=== PATIENT | male | born 1955 | race Caucasian/White ===

== ENCOUNTER 2018-07-02 13:28 | Inpatient (IN) ==
[2018-07-02 14:22] LABS: Basophils # (auto) 0.02 K/uL (0-0.2); Basophils % (auto) 0.2 %; Eosinophils # (auto) 0.25 K/uL (0-0.5); Eosinophils % (auto) 2.6 %; Hematocrit (blood only) 44.4 % (42-52); Hemoglobin 14.6 g/dL (14.0-18.0); Immature Granulocytes # (auto) 0.02 K/uL (0.00-0.02); Immature Granulocytes % (auto) 0.2 %; Lymphocytes % (auto) 15.8 %; Mean Corpuscular Hgb Conc 32.9 g/dL (32-36); Mean Corpuscular Volume 89.7 fL (80-100); Mean Platelet Volume 10.8 fL (7.4-10.4); Monocytes # (auto) 1.09 K/uL (0.11-0.59); Monocytes % (auto) 11.5 %; Neutrophils # (auto) 6.63 K/uL (1.4-6.5); Neutrophils % (auto) 69.7 %; Platelet Count 295 K/uL (130-400); RDW Coefficient of Variation 14.1 % (11.5-14.5); RDW Standard Deviation 46.1 fL (36.4-46.3); Red Blood Count 4.95 M/uL (4.7-6.1); White Blood Count 9.51 K/uL (4.8-10.8)
[2018-07-02 14:33] LABS: Alanine Aminotransferase 36 U/L (12-78); Albumin Level 3.7 gm/dl (3.4-5.0); Aspartate Aminotransferase 26 U/L (15-37); BUN Creatinine Ratio 15.8 (10-20); Blood Urea Nitrogen 17 mg/dl (7-18); Calcium 8.7 mg/dl (8.5-10.1); Carbon Dioxide 28 mmol/L (21-32); Chloride 102 mmol/L (98-107); Creatinine Clr Calc Pharmacy 93.2 ml/min; Est GFR (African American) 84.5; Est GFR (Non-African American) 72.9; Glucose 89 mg/dl (70-99); Magnesium 2.4 mg/dl (1.8-2.4); Sodium 134 mmol/L (136-145)
[2018-07-02 14:44] LABS: Albumin Globulin Ratio 0.8 (0.9-2); Alkaline Phosphatase 90 U/L (45-117); Bilirubin,Total 0.5 mg/dl (0.2-1); Globulin 4.6 gm/dl (2.5-4.0); Phosphorus 3.6 mg/dl (2.5-4.9); Total Protein 8.3 gm/dl (6.4-8.2); Troponin I < 0.015 ng/ml (0-0.045)
--- NOTE | 2018-07-02 14:55 | XRay Report ---
XR chest 1V portable CLINICAL HISTORY: Chest Pain dyspnea COMPARISON STUDY: No previous studies for comparison. FINDINGS: Mild cardiomegaly., Pulmonary vasculature. Diaphragms are smooth. IMPRESSION: Congestive heart failure. The above report was generated using voice recognition software. It may contain grammatical, syntax or spelling errors. Electronically signed by: Wicho Gonzales M.D. 07/02/2018 2:54 PM
[2018-07-02] MEDS ORDERED: dilTIAZem HCl 5 MG/ML 5 ML VIAL IV STA ×2 (15:00→19:56)
[2018-07-02 15:25] LABS: INR 1.1 (0.9-1.1); Partial Thromboplastin Time 26.5 Seconds (21.0-31.0); Prothrombin Time 11.2 Seconds (9.0-12.0)
[2018-07-02] MEDS ORDERED: FUROSEMIDE 20 MG in SYRINGE 0 ML IV STA (16:17)
[2018-07-02] MEDS ORDERED: FUROSEMIDE 40 MG in SYRINGE 0 ML IV ONE (16:51)
--- NOTE | 2018-07-02 17:02 | Emergency Department Note ---
Entered by Ricardo Solis acting as a scribe for Myles Keenan MD History of Present Illness General Chief complaint: Cardiac Assessment Stated complaint: CARDIAC ASSESSMENT,SOB,SENT OVER BY [facility] Time Seen by Provider: 07/02/18 14:10 Source: patient History of Present Illness Onset (ago): week(s) (past couple) Location: chest (lungs) Pain Consistency: + other (persistent) Quality: + other (shortness of breath) Associated symptoms: + other (possible arrhythmia; denies palpitations, leg swelling, or congestion); no chest pain The patient is a 63 year old male who presents to the Emergency Room with complaints of persistent shortness of breath for the past month. The patient reports that he currently feels short of breath at rest and notes a cough. He was evaluated by his [facility] PCP prior to arrival and was sent to the ER with concerns of possible arrhythmia. The patient denies a history of any known arrhythmia or other heart problems. He had a stress test in 2008 that was unremarkable. He reports a history of second-hand smoke exposure but has not personally smoked cigarettes. The patient denies leg swelling, congestion, palp itations, or chest pain. He notes that he has gained a few pounds in the past month. He states that he has not missed any of his medications, including medication for hypertension. He reports a history of brain aneurysm. He reports recent rib fractures this past winter. He notes that he is active at his job working for [employer]. Home Medications Home Medications Medication Instructions Recorded Confirmed Type amlodipine 5 mg PO DAILY 07/02/18 07/02/18 History atenolol 100 mg PO DAILY 07/02/18 07/02/18 History baclofen 10 mg PO BID PRN 07/02/18 07/02/18 History hydrochlorothiazide 25 mg PO DAILY 07/02/18 07/02/18 History lisinopril 40 mg PO DAILY 07/02/18 07/02/18 History oxycodone-acetaminophen 1 tab PO HS PRN 07/02/18 07/02/18 History Allergies Allergy/AdvReac Type Severity Reaction Status Date / Time Penicillins Allergy RASH Unverified 07/02/18 14:44 Past Med/Surg History Medical History Barretts esophagus (Chronic) Obesity (Chronic) Hypertension (Chronic) Surgical History Hx of tonsillectomy (Chronic) Family History Mother Heart disease First [place] in her early 60s, fatal [place] at age 78 Father Stroke fatal CVA at age 69 Social History Preferred Language: Polish Communication Ability: Effective Beliefs That Will Affect Care: None Current Living Situation: Significant Other current occupational status: employed Other Information That Helps Us Care for You: No Feels Safe at Home: Yes Safety Concerns: Feels Safe At This Time Smoking Status: Never smoker Hx Alcohol Use: Yes Alcohol type: beer Hx Substance Use: No Review of Systems See HPI for pertinent positives & negatives. and A total of 10 systems reviewed and were otherwise negative Physical Exam Vital Signs Vital Signs - 24 hr 07/02/18 13:31 07/02/18 13:42 07/02/18 14:01 Temperature 36.8 C Temperature Source Oral Sepsis Recent Fever Within 48 Hours No Sepsis Action Taken by Nursing No Action Required Pulse Rate 108 H 145 H 145 H Pulse Rate [Left Brachial] Pulse Rate from SpO2 Sensor 122 H 92 H Respiratory Rate 20 26 H 16 Respiratory Effort / Characteristics Non-Labored Respiratory Depth Normal Blood Pressure 175/121 H 152/135 H 140/110 H Blood Pressure [Left Arm] Blood Pressure Mean 139 140 120 Blood Pressure Mean [Left Arm] Blood Pressure Position [Left Arm] Pulse Oximetry 98 96 95 Oxygen Delivery Method Room Air Room Air 07/02/18 14:32 07/02/18 15:01 07/02/18 15:06 Temperature Temperature Source Sepsis Recent Fever Within 48 Hours Sepsis Action Taken by Nursing Pulse Rate 134 H 126 H 141 H Pulse Rate [Left Brachial] Pulse Rate from SpO2 Sensor 85 122 H 105 H Respiratory Rate 21 22 19 Respiratory Effort / Characteristics Respiratory Depth Blood Pressure 153/113 H 136/111 H 151/104 H Blood Pressure [Left Arm] Blood Pressure Mean 126 119 119 Blood Pressure Mean [Left Arm] Blood Pressure Position [Left Arm] Pulse Oximetry 96 96 96 Oxygen Delivery Method 07/02/18 15:07 07/02/18 15:10 05/02/19 15:20 Temperature Temperature Source Sepsis Recent Fever Within 48 Hours Sepsis Action Taken by Nursing Pulse Rate 140 H 113 H 107 H Pulse Rate [Left Brachial] Pulse Rate from SpO2 Sensor 104 H 110 H 101 H Respiratory Rate 20 18 23 Respiratory Effort / Characteristics Respiratory Depth Blood Pressure Blood Pressure [Left Arm] Blood Pressure Mean Blood Pressure Mean [Left Arm] Blood Pressure Position [Left Arm] Pulse Oximetry 96 93 95 Oxygen Delivery Method 07/02/18 15:30 07/02/18 15:32 07/02/18 15:40 Temperature Temperature Source Sepsis Recent Fever Within 48 Hours Sepsis Action Taken by Nursing Pulse Rate 110 H 115 H 101 H Pulse Rate [Left Brachial] Pulse Rate from SpO2 Sensor 92 H 93 H 90 Respiratory Rate 22 26 H 19 Respiratory Effort / Characteristics Respiratory Depth Blood Pressure 119/70 Blood Pressure [Left Arm] Blood Pressure Mean 86 Blood Pressure Mean [Left Arm] Blood Pressure Position [Left Arm] Pulse Oximetry 93 93 95 Oxygen Delivery Method 07/02/18 15:50 07/02/18 16:00 07/02/18 16:10 Temperature Temperature Source Sepsis Recent Fever Within 48 Hours Sepsis Action Taken by Nursing Pulse Rate 119 H 112 H 105 H Pulse Rate [Left Brachial] Pulse Rate from SpO2 Sensor 84 92 H 80 Respiratory Rate 18 18 23 Respiratory Effort / Characteristics Respiratory Depth Blood Pressure Blood Pressure [Left Arm] Blood Pressure Mean Blood Pressure Mean [Left Arm] Blood Pressure Position [Left Arm] Pulse Oximetry 94 92 Oxygen Delivery Method Room Air 07/02/18 16:20 07/02/18 16:30 07/02/18 16:32 Temperature Temperature Source Sepsis Recent Fever Within 48 Hours Sepsis Action Taken by Nursing Pulse Rate 106 H 106 H 100 H Pulse Rate [Left Brachial] Pulse Rate from SpO2 Sensor 105 H 87 102 H Respiratory Rate 24 20 25 H Respiratory Effort / Characteristics Respiratory Depth Blood Pressure 138/88 Blood Pressure [Left Arm] Blood Pressure Mean 104 Blood Pressure Mean [Left Arm] Blood Pressure Position [Left Arm] Pulse Oximetry 95 94 94 Oxygen Delivery Method 07/02/18 16:40 07/02/18 16:50 07/02/18 17:00 Temperature Temperature Source Sepsis Recent Fever Within 48 Hours Sepsis Action Taken by Nursing Pulse Rate 105 H Pulse Rate [Left Brachial] Pulse Rate from SpO2 Sensor 98 H 93 H 95 H Respiratory Rate 19 Respiratory Effort / Characteristics Respiratory Depth Blood Pressure Blood Pressure [Left Arm] Blood Pressure Mean Blood Pressure Mean [Left Arm] Blood Pressure Position [Left Arm] Pulse Oximetry 95 96 96 Oxygen Delivery Method 07/02/18 17:10 07/02/18 17:17 07/02/18 17:20 Temperature Temperature Source Sepsis Recent Fever Within 48 Hours Sepsis Action Taken by Nursing Pulse Rate 113 H 126 H Pulse Rate [Left Brachial] Pulse Rate from SpO2 Sensor 91 H 84 89 Respiratory Rate 20 19 Respiratory Effort / Characteristics Respiratory Depth Blood Pressure 143/87 H Blood Pressure [Left Arm] Blood Pressure Mean 105 Blood Pressure Mean [Left Arm] Blood Pressure Position [Left Arm] Pulse Oximetry 95 96 94 Oxygen Delivery Method 07/02/18 17:31 07/02/18 17:33 07/02/18 17:34 Temperature Temperature Source Sepsis Recent Fever Within 48 Hours Sepsis Action Taken by Nursing Pulse Rate 120 H 119 H 99 H Pulse Rate [Left Brachial] Pulse Rate from SpO2 Sensor 81 95 H Respiratory Rate 13 19 21 Respiratory Effort / Characteristics Respiratory Depth Blood Pressure 152/95 H Blood Pressure [Left Arm] Blood Pressure Mean 114 Blood Pressure Mean [Left Arm] Blood Pressure Position [Left Arm] Pulse Oximetry 97 97 Oxygen Delivery Method 07/02/18 17:40 07/02/18 17:50 07/02/18 18:00 Temperature Temperature Source Sepsis Recent Fever Within 48 Hours Sepsis Action Taken by Nursing Pulse Rate 133 H 111 H 131 H Pulse Rate [Left Brachial] Pulse Rate from SpO2 Sensor 77 97 H Respiratory Rate 21 18 19 Respiratory Effort / Characteristics Respiratory Depth Blood Pressure Blood Pressure [Left Arm] Blood Pressure Mean Blood Pressure Mean [Left Arm] Blood Pressure Position [Left Arm] Pulse Oximetry 94 96 Oxygen Delivery Method 07/02/18 18:02 07/02/18 18:10 07/02/18 18:24 Temperature Temperature Source Sepsis Recent Fever Within 48 Hours Sepsis Action Taken by Nursing Pulse Rate 133 H 117 H 125 H Pulse Rate [Left Brachial] Pulse Rate from SpO2 Sensor 89 108 H Respiratory Rate 21 20 23 Respiratory Effort / Characteristics Respiratory Depth Blood Pressure 178/87 H Blood Pressure [Left Arm] Blood Pressure Mean 117 Blood Pressure Mean [Left Arm] Blood Pressure Position [Left Arm] Pulse Oximetry 95 98 93 Oxygen Delivery Method 07/02/18 18:49 07/02/18 19:05 07/02/18 20:13 Temperature 36.8 C Temperature Source Oral Sepsis Recent Fever Within 48 Hours Sepsis Action Taken by Nursing Pulse Rate Pulse Rate [Left Brachial] 63 117 H Pulse Rate from SpO2 Sensor Respiratory Rate 19 Respiratory Effort / Characteristics Non-Labored Spontaneous Non-Labored Spontaneous Respiratory Depth Normal Blood Pressure Blood Pressure [Left Arm] 163/103 H 131/87 Blood Pressure Mean Blood Pressure Mean [Left Arm] 123 101 Blood Pressure Position [Left Arm] Pulse Oximetry 92 Oxygen Delivery Method Room Air 07/02/18 23:20 07/03/18 01:03 Temperature 37.4 C Temperature Source Oral Sepsis Recent Fever Within 48 Hours Sepsis Action Taken by Nursing Pulse Rate Pulse Rate [Left Brachial] 86 84 Pulse Rate from SpO2 Sensor Respiratory Rate 19 Respiratory Effort / Characteristics Respiratory Depth Normal Blood Pressure Blood Pressure [Left Arm] 110/71 112/80 Blood Pressure Mean Blood Pressure Mean [Left Arm] 84 90 Blood Pressure Position [Left Arm] Lying Pulse Oximetry 96 Oxygen Delivery Method Room Air GENERAL: Awake, alert, fatigued-appearing, in no distress HENT: Normocephalic, atraumatic. Oropharynx unremarkable. EYES: Normal conjunctiva. Sclera non-icteric. NECK: Supple. No nuchal rigidity. FROM. No JVD. RESPIRATORY: Diminished breath sounds at the bases, otherwise clear. CARDIAC: Tachycardic rate, irregular rhythm. Extremities warm and well perfused. Pulses equal. ABDOMEN: Soft, non-distended. No tenderness to palpation. No rebound or guarding. No masses. RECTAL: Deferred. MUSCULOSKELETAL: Chest examination reveals no tenderness. The back is symmetrical on inspection without obvious abnormality. There is no CVA tenderness to palpation. No joint edema. LOWER EXTREMITIES: Calves are equal size bilaterally and non-tender. Scant edema. No discoloration. NEURO: Normal sensorium. No sensory or motor deficits noted. SKIN: No rash or jaundice noted. Course 1414: The patient was evaluated in room A11B. A complete history and physical examination were performed. 1458: I checked on the patient and updated him on current results. 1605: I updated the patient on results and the current plan. On reevaluation his heart rate appears improved, mostly in the low 100s. 1616: I consulted MARISSA Hassan: [facility] Hospitalist. The patient will be reevaluated for hospitalization. Administered Medications Heparin Sodium/Dextrose (Heparin Sodium/Dextrose) 25,000 units in 500 mls @ 37 mls/hr IV .[id number] [facility]; Protocol Stop: 08/01/18 19:44 Last Titration: 07/02/18 23:46 Dose: 1,850 units/hr, 37 mls/hr Documented by: [id number] Cosigned by: [id number] Admin: 07/02/18 19:40 Dose: Not Given Documented by: [id number] Admin: 07/02/18 17:30 Dose: 1,650 units/hr, 33 mls/hr Documented by: [id number] Cosigned by: [id number] Diltiazem HCl 125 mg/ Dextrose 125 mls @ 5 mls/hr IV .Q24H [facility]; Protocol Stop: 08/01/18 19:59 Last Admin: 07/02/18 21:11 Dose: 5 mg/hr, 5 mls/hr Documented by: [id number] Cosigned by: [id number] Metoprolol Tartrate (Lopressor) 25 mg PO Q6 [facility] Stop: 08/01/18 19:33 Last Admin: 07/03/18 01:04 Dose: 25 mg Documented by: [id number] Admin: 07/02/18 20:04 Dose: 25 mg Documented by: [id number] Discontinued Medications Diltiazem HCl (Cardizem) 15 mg IV NOW STA Stop: 07/02/18 15:01 Last Admin: 07/02/18 15:05 Dose: 15 mg Documented by: [id number] Cosigned by: [id number] Diltiazem HCl (Cardizem) 10 mg IV NOW STA Stop: 07/02/18 19:57 Last Admin: 07/02/18 20:09 Dose: 10 mg Documented by: [id number] Cosigned by: [id number] Furosemide (Lasix) Confirm Administered Dose 40 mg IV .STK-MED ONE Stop: 07/02/18 17:09 Last Admin: 07/02/18 17:13 Dose: 40 mg Documented by: [id number] Heparin Sodium (Porcine) (Heparin Iv Bolus) Confirm Administered Dose 10,000 units .ROUTE .STK-MED ONE Stop: 07/02/18 17:28 Last Admin: 07/02/18 17:31 Dose: Not Given Documented by: [id number] Heparin Sodium/Dextrose () 1 ea IV NOW STA; Protocol Stop: 07/02/18 16:52 Last Admin: 07/02/18 17:14 Dose: Not Given Documented by: [id number] Heparin Sodium/Dextrose (Heparin Sodium/Dextrose) Confirm Administered Dose 25,000 units IV .STK-MED ONE Stop: 07/02/18 17:08 Last Admin: 07/02/18 17:30 Dose: 1,650 units Documented by: [id number] Cosigned by: [id number] Furosemide 20 mg/ Syringe 2 mls @ 4 mls/min IV NOW STA Stop: 07/02/18 16:18 Last Admin: 07/02/18 17:14 Dose: Not Given Documented by: [id number] Furosemide 40 mg/ Syringe 4 mls @ 4 mls/min IV ONE ONE Stop: 07/02/18 16:52 Last Admin: 07/02/18 17:13 Dose: Not Given Documented by: [id number] Heparin Sodium (Porcine) 4,000 (units/ Syringe) 4 mls @ 1 mls/min IV TODAY@0000 ONE; Protocol Stop: 07/03/18 00:03 Last Admin: 07/03/18 00:05 Dose: 1 mls/min Documented by: [id number] Cosigned by: [id number] Medical Decision Making Differential Diagnosis Differential diagnosis includes: infections, reactive airway disease, pneumonia, pneumothorax, COPD, CHF, cardiac ischemia, pulmonary embolism, musculoskeletal, gastrointestinal, as well as others were entertained. Medical Records Attestation: I reviewed the patient's medical records. Home Medications Current Medication List: was personally reviewed by me Laboratory Data Attestation: I reviewed the patient's lab results. Result diagrams: 07/03/18 01:54 07/02/18 13:55 Lab Results 07/02/18 07/02/18 07/02/18 Range/Units 13:55 13:55 13:55 WBC 9.51 (4.8-10.8) K/uL RBC 4.95 (4.7-6.1) M/uL Hgb 14.6 (14.0-18.0) g/dL Hct 44.4 (42-52) % MCV 89.7 (80-100) fL MCH 29.5 (25-34) pg MCHC 32.9 (32-36) g/dL RDW Std Deviation 46.1 (36.4-46.3) fL RDW Coeff of Abran 14.1 (11.5-14.5) % Plt Count 295 (130-400) K/uL MPV 10.8 H (7.4-10.4) fL Immature Gran % (Auto) 0.2 % Neut % (Auto) 69.7 % Lymph % (Auto) 15.8 % [place] % (Auto) 11.5 % Eos % (Auto) 2.6 % Baso % (Auto) 0.2 % Immature Gran # (Auto) 0.02 (0.00-0.02) K/uL Neut # (Auto) 6.63 H (1.4-6.5) K/uL Lymph # (Auto) 1.50 (1.2-3.4) K/uL [place] # (Auto) 1.09 H (0.11-0.59) K/uL Eos # (Auto) 0.25 (0-0.5) K/uL Baso # (Auto) 0.02 (0-0.2) K/uL PT (9.0-12.0) Seconds INR (0.9-1.1) APTT (21.0-31.0) Seconds PTT Ratio Sodium 134 L (136-145) mmol/L Potassium 4.0 (3.5-5.1) mmol/L Chloride 102 (98-107) mmol/L Carbon Dioxide 28 (21-32) mmol/L Anion Gap 4.0 (3-11) BUN 17 (7-18) mg/dl Creatinine 1.09 (0.6-1.4) mg/dl Est Cr Clr Drug Dosing 93.2 ml/min Est GFR ( Amer) 84.5 Est GFR (Non-Af Amer) 72.9 BUN/Creatinine Ratio 15.8 (10-20) Glucose 89 (70-99) mg/dl Calcium 8.7 (8.5-10.1) mg/dl Phosphorus 3.6 (2.5-4.9) mg/dl Magnesium 2.4 (1.8-2.4) mg/dl Total Bilirubin 0.5 (0.2-1) mg/dl AST 26 (15-37) U/L ALT 36 (12-78) U/L Alkaline Phosphatase 90 (45-117) U/L Troponin I < 0.015 (0-0.045) ng/ml NT-Pro-B Natriuret Pep (0-900) pg/ml Total Protein 8.3 H (6.4-8.2) gm/dl Albumin 3.7 (3.4-5.0) gm/dl Globulin 4.6 H (2.5-4.0) gm/dl Albumin/Globulin Ratio 0.8 L (0.9-2) Lipase 323 (73-393) U/L TSH 0.846 Cancelled (0.300-4.500) uIu/ml 07/02/18 07/02/18 07/02/18 Range/Units 13:55 13:55 19:56 WBC (4.8-10.8) K/uL RBC (4.7-6.1) M/uL Hgb (14.0-18.0) g/dL Hct (42-52) % MCV (80-100) fL MCH (25-34) pg MCHC (32-36) g/dL RDW Std Deviation (36.4-46.3) fL RDW Coeff of Abran (11.5-14.5) % Plt Count (130-400) K/uL MPV (7.4-10.4) fL Immature Gran % (Auto) % Neut % (Auto) % Lymph % (Auto) % [place] % (Auto) % Eos % (Auto) % Baso % (Auto) % Immature Gran # (Auto) (0.00-0.02) K/uL Neut # (Auto) (1.4-6.5) K/uL Lymph # (Auto) (1.2-3.4) K/uL [place] # (Auto) (0.11-0.59) K/uL Eos # (Auto) (0-0.5) K/uL Baso # (Auto) (0-0.2) K/uL PT 11.2 (9.0-12.0) Seconds INR 1.1 (0.9-1.1) APTT 26.5 (21.0-31.0) Seconds PTT Ratio 1.0 Sodium (136-145) mmol/L Potassium (3.5-5.1) mmol/L Chloride (98-107) mmol/L Carbon Dioxide (21-32) mmol/L Anion Gap (3-11) BUN (7-18) mg/dl Creatinine (0.6-1.4) mg/dl Est Cr Clr Drug Dosing ml/min Est GFR ( Amer) Est GFR (Non-Af Amer) BUN/Creatinine Ratio (10-20) Glucose (70-99) mg/dl Calcium (8.5-10.1) mg/dl Phosphorus (2.5-4.9) mg/dl Magnesium (1.8-2.4) mg/dl Total Bilirubin (0.2-1) mg/dl AST (15-37) U/L ALT (12-78) U/L Alkaline Phosphatase (45-117) U/L Troponin I 0.017 (0-0.045) ng/ml NT-Pro-B Natriuret Pep 1819 H (0-900) pg/ml Total Protein (6.4-8.2) gm/dl Albumin (3.4-5.0) gm/dl Globulin (2.5-4.0) gm/dl Albumin/Globulin Ratio (0.9-2) Lipase (73-393) U/L TSH (0.300-4.500) uIu/ml 07/02/18 07/03/18 Range/Units 23:04 01:54 WBC 9.14 (4.8-10.8) K/uL RBC 4.99 (4.7-6.1) M/uL Hgb 14.8 (14.0-18.0) g/dL Hct 44.5 (42-52) % MCV 89.2 (80-100) fL MCH 29.7 (25-34) pg MCHC 33.3 (32-36) g/dL RDW Std Deviation 46.0 (36.4-46.3) fL RDW Coeff of Abran 14.1 (11.5-14.5) % Plt Count 292 (130-400) K/uL MPV 10.8 H (7.4-10.4) fL Immature Gran % (Auto) % Neut % (Auto) % Lymph % (Auto) % [place] % (Auto) % Eos % (Auto) % Baso % (Auto) % Immature Gran # (Auto) (0.00-0.02) K/uL Neut # (Auto) (1.4-6.5) K/uL Lymph # (Auto) (1.2-3.4) K/uL [place] # (Auto) (0.11-0.59) K/uL Eos # (Auto) (0-0.5) K/uL Baso # (Auto) (0-0.2) K/uL PT (9.0-12.0) Seconds INR (0.9-1.1) APTT 41.5 H (21.0-31.0) Seconds PTT Ratio 1.5 Sodium (136-145) mmol/L Potassium (3.5-5.1) mmol/L Chloride (98-107) mmol/L Carbon Dioxide (21-32) mmol/L Anion Gap (3-11) BUN (7-18) mg/dl Creatinine (0.6-1.4) mg/dl Est Cr Clr Drug Dosing ml/min Est GFR ( Amer) Est GFR (Non-Af Amer) BUN/Creatinine Ratio (10-20) Glucose (70-99) mg/dl Calcium (8.5-10.1) mg/dl Phosphorus (2.5-4.9) mg/dl Magnesium (1.8-2.4) mg/dl Total Bilirubin (0.2-1) mg/dl AST (15-37) U/L ALT (12-78) U/L Alkaline Phosphatase (45-117) U/L Troponin I (0-0.045) ng/ml NT-Pro-B Natriuret Pep (0-900) pg/ml Total Protein (6.4-8.2) gm/dl Albumin (3.4-5.0) gm/dl Globulin (2.5-4.0) gm/dl Albumin/Globulin Ratio (0.9-2) Lipase (73-393) U/L TSH (0.300-4.500) uIu/ml Imaging Data Radiologist's Impression: Radiology results as stated below per my review and the radiologist's interpretation: XR chest 1V portable CLINICAL HISTORY: Chest Pain dyspnea COMPARISON STUDY: No previous studies for comparison. FINDINGS: Mild cardiomegaly., Pulmonary vasculature. Diaphragms are smooth. IMPRESSION: Congestive heart failure. The above report was generated using voice recognition software. It may contain grammatical, syntax or spelling errors. Electronically signed by: Wicho Gonzales M.D. 07/02/2018 2:54 PM ECG Data Attestation: I personally reviewed and interpreted this ECG as follows: Indication: SOB/dyspnea Rate (beats per minute): 126 Rhythm: atrial fibrillation (with RVR) Findings: + other (normal axis; nonspecific T-wave abnormalities; no overt acute ishcemia) and + nonspecific-ST abn Blood Pressure Blood Pressure Findings: Normal blood pressure Blood Pressure Disposition: did not require urgent referral MDM Narrative The patient is a pleasant 63-year-old gentleman with a past medical history of hypertension who presents emergency department with 1 month of worsening shortness of breath and orthopnea referred to emergency department after being seen at his PCPs office found to have atrial fibrillation per hpi. On arrival the patient is in no acute distress, afebrile with heart rate ranging from the 120s-150s irregular in atrial fibrillation with BP 170s/120s. On exam the patient has diminished breath sounds at the bases and is otherwise clear. He has scant lower extremity edema. EKG demonstrates A. fib with RVR with nonspecific ST and T wave abnormalities but otherwise no overt evidence of acute ischemia. Chest x-ray demonstrates venous congestion. WBC, H/H, platelets wnl. Chemistry without acidosis. LFTs and electrolytes unremarkable. Troponin negative. BNP 1800s without prior values for comparison. Limited bedside ultrasound demonstrates no overt pericardial effusion. Minimally variable IVC. LV appears enlarged. Difficult to assess LV systolic function given poor views 2/2 body habitus and afib. Mild bilateral pleural effusions. Patient feeling improved after 15 mg of IV diltiazem with heart rate improved into the 100s. Given the patient's evidence of overload will provide dose of Lasix. Case discussed with Zhanna Hassan PA-C, who will evaluate the patient for admission. Admitting team to make decision on further rate control and anticoagulation given stroke risk. Impression & Plan Atrial fibrillation with RVR, CHF (congestive heart failure) Critical Care Time I have personally spent greater than 35 minutes of critical care time in the direct management of this patient. This includes bedside care, interpretation of diagnostic studies, and testing, discussion with consultants, patient, and family members, and other required patient management activities. This 35 minutes is in excess of all separately billable procedures. Critical Care Time: Yes Total Critical Care Time: 35 Discharge Plan Visit Data *Final* Discharge Date/Time: 07/02/18 18:29 Chief Complaint: Cardiac Assessment Stated Complaint: CARDIAC ASSESSMENT,SOB,SENT OVER BY [facility] ED Provider: Myles Keenan Discharge Problem: Atrial fibrillation with RVR, CHF (congestive heart failure) Patient Disposition: Admitted As Inpatient Discharge Instructions Interventions: ED Discharge Assessment Last Done: 07/02/18 18:29 The scribe's documentation has been prepared under my direction and personally reviewed by me in its entirety. I confirm that the note above accurately reflects all work, treatment, procedures, and medical decision making performed by me.
[2018-07-02] MEDS ORDERED: HEPARIN 25000 UNIT/500 ML D5W IV ONE (17:07)
[2018-07-02] MEDS ORDERED: FUROSEMIDE 40 MG/4 ML VIAL IV ONE (17:08)
[2018-07-02] MEDS ORDERED: HEPARIN SOD (PORCINE) 1000 UNIT/ML 10 ML VIAL ONE (17:27)
[2018-07-02] MEDS: Heparin Adult STANDARD Wt-Based Dextrose 5% 25,000 units/500 mL IV SCH ×2 (17:30→19:40)
[2018-07-02] MEDS ORDERED: ACETAMINOPHEN 325 MG TAB PO PRN (19:34)
[2018-07-02] MEDS ORDERED: OXYCODONE/ACETAMINOPHEN 5mg/325mg TAB PO PRN (19:34)
--- NOTE | 2018-07-02 19:45 | History & Physical Report ---
Date of Service July 02, 2018 Assessment & Plan (1) New onset atrial fibrillation: (2) CHF (congestive heart failure): -Admit to telemetry -Patient presenting from referral of PCPs office for evaluation of shortness of breath and new onset A. fib with RVR -In the ED, patient was found to be in A. fib with RVR with heart rates in the 140s to 150s -Received diltiazem 15 mg IV x1 with improvement in heart rate -will stop patient's home atenolol and start metoprolol tartrate 25 mg p.o. every 6 hours -Start IV heparin; [id number] score: 1 (hypertension), possibly 2 depending on echo findings -CXR suggest CHF and also elevated proBNP; no prior history of CHF; EF 60% from stress echo 2006 -Received 40 mg IV Lasix in the ED, reevaluate patient in a.m. and provide further diuresis if needed -Resting echo; consider tachycardia induced cardiomyopathy from A. fib -Low Na+ diet, daily standing weights, strict I's and O's -Serial cardiac enzymes -Cardiology consult, case discussed with Dr. Harris (3) Hypertension: -BP elevated on arrival, however improved after IV diltiazem -Changing atenolol to metoprolol as above -Hold HCTZ while receiving IV Lasix -Resume home doses of amlodipine and lisinopril in the morning (4) DVT prophylaxis: -On IV heparin drip History of Present Illness Chief Complaint: Shortness of breath Primary Care Provider: Shahzad Huang DO 63-year-old male who presents to the ED with shortness of breath. Patient reports his symptoms have been ongoing for the past 1 month. He was seen at his PCPs office today where he was found to be in A. fib with RVR and was sent to the ED for further evaluation. Patient reports that over the past 1 month, he has been having increasing exertional shortness of breath as well as orthopnea. He denies any shortness of breath at rest. No chest pain or palpitations. He believes as though he is gained about 5 pounds in the past few months. He denies any lower extremity edema. No lightheadedness, dizziness, diaphoresis, syncopal events. He denies abdominal pain, nausea, vomiting, diarrhea. No other recent illnesses, fevers, chills. He denies any urinary symptoms. In the ED, patient was found to be in A. fib with RVR with heart rates in the 140s to 150s. He was given diltiazem 15 mg IV with improvement in heart rate. Chest x- ray is suggesting CHF. proBNP is elevated at 1819. Patient also received IV Lasix. Allergies Allergy/AdvReac Type Severity Reaction Status Date / Time Penicillins Allergy RASH Unverified 07/02/18 14:44 Home Medications Home Medications Medication Instructions Recorded Confirmed Type amlodipine 5 mg PO DAILY 07/02/18 07/02/18 History atenolol 100 mg PO DAILY 07/02/18 07/02/18 History baclofen 10 mg PO BID PRN 07/02/18 07/02/18 History hydrochlorothiazide 25 mg PO DAILY 07/02/18 07/02/18 History lisinopril 40 mg PO DAILY 07/02/18 07/02/18 History oxycodone-acetaminophen 1 tab PO HS PRN 07/02/18 07/02/18 History Past Med/Surg History Medical History Barretts esophagus (Chronic) Obesity (Chronic) Hypertension (Chronic) Surgical History Hx of tonsillectomy (Chronic) Social History Preferred Language: Stateless Communication Ability: Effective Beliefs That Will Affect Care: None Current Living Situation: Significant Other current occupational status: employed Other Information That Helps Us Care for You: No Feels Safe at Home: Yes Safety Concerns: Feels Safe At This Time Smoking Status: Never smoker Hx Alcohol Use: Yes Alcohol type: beer Hx Substance Use: No Review of Systems Review of Systems: ROS per HPI, all other systems reviewed and negative Physical Exam Constitutional: WD/WN, vitals as above + obese Eyes: PERRL, conjunctivae normal, anicteric sclerae ENMT: external ear and nose normal, oropharynx normal Respiratory: normal respiratory effort; no respiratory distress Auscultation: + diminished lung sounds (Bilateral bases) Cardiovascular: Rate/Rhythm: + tachycardic and + irregularly irregular Vessels: normal peripheral pulses Extremities: no edema Gastrointestinal (Abdomen): normal bowel sounds, soft, nontender, no hepatosplenomegaly Musculoskeletal: no cyanosis or clubbing, extremities motor strength 5/5 Skin: no rashes, warm and dry Neurologic: PERRL, EOMI, accommodation nl, no face palsy, no dysarthria Psychiatric: A+Ox3, euthymic affect Results & Data Vital Signs (Past 12 Hours) Vital Signs Temp Pulse Pulse Resp BP BP Pulse Ox 07/02/18 18:49 36.8 C 63 19 163/103 H 92 07/02/18 18:24 125 H 23 178/87 H 93 07/02/18 18:10 117 H 20 98 07/02/18 18:02 133 H 21 95 07/02/18 18:00 131 H 19 96 07/02/18 17:50 111 H 18 94 07/02/18 17:40 133 H 21 07/02/18 17:34 99 H 21 97 07/02/18 17:33 119 H 19 152/95 H 97 07/02/18 17:31 120 H 13 07/02/18 17:20 126 H 19 94 07/02/18 17:17 113 H 20 143/87 H 96 07/02/18 17:10 95 07/02/18 17:00 96 07/02/18 16:50 96 07/02/18 16:40 105 H 19 95 07/02/18 16:32 100 H 25 H 138/88 94 07/02/18 16:30 106 H 20 94 07/02/18 16:20 106 H 24 95 07/02/18 16:10 105 H 23 92 07/02/18 16:00 112 H 18 07/02/18 15:50 119 H 18 94 07/02/18 15:40 101 H 19 95 07/02/18 15:32 115 H 26 H 119/70 93 07/02/18 15:30 110 H 22 93 07/02/18 15:20 107 H 23 95 07/02/18 15:10 113 H 18 93 07/02/18 15:07 140 H 20 96 07/02/18 15:06 141 H 19 151/104 H 96 07/02/18 15:01 126 H 22 136/111 H 96 07/02/18 14:32 134 H 21 153/113 H 96 07/02/18 14:01 145 H 16 140/110 H 95 07/02/18 13:42 145 H 26 H 152/135 H 96 07/02/18 13:31 36.8 C 108 H 20 175/121 H 98 Laboratory Results Laboratory Last Values WBC 9.51 K/uL (4.8-10.8) 07/02/18 13:55 RBC 4.95 M/uL (4.7-6.1) 07/02/18 13:55 Hgb 14.6 g/dL (14.0-18.0) 07/02/18 13:55 Hct 44.4 % (42-52) 07/02/18 13:55 MCV 89.7 fL (80-100) 07/02/18 13:55 MCH 29.5 pg (25-34) 07/02/18 13:55 MCHC 32.9 g/dL (32-36) 07/02/18 13:55 RDW Std Deviation 46.1 fL (36.4-46.3) 07/02/18 13:55 RDW Coeff of Abran 14.1 % (11.5-14.5) 07/02/18 13:55 Plt Count 295 K/uL (130-400) 07/02/18 13:55 MPV 10.8 fL (7.4-10.4) H 07/02/18 13:55 Immature Gran % (Auto) 0.2 % 07/02/18 13:55 Neut % (Auto) 69.7 % 07/02/18 13:55 Lymph % (Auto) 15.8 % 07/02/18 13:55 [place] % (Auto) 11.5 % 07/02/18 13:55 Eos % (Auto) 2.6 % 07/02/18 13:55 Baso % (Auto) 0.2 % 07/02/18 13:55 Immature Gran # (Auto) 0.02 K/uL (0.00-0.02) 07/02/18 13:55 Neut # (Auto) 6.63 K/uL (1.4-6.5) H 07/02/18 13:55 Lymph # (Auto) 1.50 K/uL (1.2-3.4) 07/02/18 13:55 [place] # (Auto) 1.09 K/uL (0.11-0.59) H 07/02/18 13:55 Eos # (Auto) 0.25 K/uL (0-0.5) 07/02/18 13:55 Baso # (Auto) 0.02 K/uL (0-0.2) 07/02/18 13:55 PT 11.2 Seconds (9.0-12.0) 07/02/18 13:55 INR 1.1 (0.9-1.1) 07/02/18 13:55 APTT 26.5 Seconds (21.0-31.0) 07/02/18 13:55 PTT Ratio 1.0 07/02/18 13:55 Sodium 134 mmol/L (136-145) L 07/02/18 13:55 Potassium 4.0 mmol/L (3.5-5.1) 07/02/18 13:55 Chloride 102 mmol/L (98-107) 07/02/18 13:55 Carbon Dioxide 28 mmol/L (21-32) 07/02/18 13:55 Anion Gap 4.0 (3-11) 07/02/18 13:55 BUN 17 mg/dl (7-18) 07/02/18 13:55 Creatinine 1.09 mg/dl (0.6-1.4) 07/02/18 13:55 Est Cr Clr Drug Dosing 93.2 ml/min 07/02/18 13:55 Est GFR ( Amer) 84.5 07/02/18 13:55 Est GFR (Non-Af Amer) 72.9 07/02/18 13:55 BUN/Creatinine Ratio 15.8 (10-20) 07/02/18 13:55 Glucose 89 mg/dl (70-99) 07/02/18 13:55 Calcium 8.7 mg/dl (8.5-10.1) 07/02/18 13:55 Phosphorus 3.6 mg/dl (2.5-4.9) 07/02/18 13:55 Magnesium 2.4 mg/dl (1.8-2.4) 07/02/18 13:55 Total Bilirubin 0.5 mg/dl (0.2-1) 07/02/18 13:55 AST 26 U/L (15-37) 07/02/18 13:55 ALT 36 U/L (12-78) 07/02/18 13:55 Alkaline Phosphatase 90 U/L (45-117) 07/02/18 13:55 Troponin I < 0.015 ng/ml (0-0.045) 07/02/18 13:55 NT-Pro-B Natriuret Pep 1819 pg/ml (0-900) H 07/02/18 13:55 Total Protein 8.3 gm/dl (6.4-8.2) H 07/02/18 13:55 Albumin 3.7 gm/dl (3.4-5.0) 07/02/18 13:55 Globulin 4.6 gm/dl (2.5-4.0) H 07/02/18 13:55 Albumin/Globulin Ratio 0.8 (0.9-2) L 07/02/18 13:55 Lipase 323 U/L (73-393) 07/02/18 13:55 TSH 0.846 uIu/ml (0.300-4.500) 07/02/18 13:55 Diagnostic Findings CXR IMPRESSION: Congestive heart failure. Code Status & VTE Plan VTE Prophylaxis Plan VTE Prophylaxis will be ordered: Yes Supervising Physician Co-Signing Physician Notes Patient is a 63-year-old male with history of hypertension, Garcia's esophagus and other medical problems presents with history of ongoing shortness of breath on exertion, orthopnea since 1 month duration. He also states having intermittent dizziness. Patient was seen by his PCP today and was found to have atrial fibrillation and was sent to ED for further evaluation. While in ED patient was found to be in A. fib RVR. TSH was normal. Troponin x2 negative, BNP elevated at 1819, chest x-ray suggestive of congestive heart failure. On exam patient is moderately built and nourished, no apparent distress, lungs are clear to auscultation, irregularly irregular rhythm, tachycardia, no murmur, trace pedal edema, grossly known neuro deficits. Patient is admitted for management of new onset atrial fibrillation and CHF. Patient was given IV Lasix in ED. Will start on metoprolol 25 mg every 6 hours. Also started on IV heparin for anticoagulation. Consulted cardiology for further input. Consider Cardizem drip if heart rate uncontrolled. Monitor electrolytes, I's and O's, daily weight. IV diuretics in the morning as needed. Check echo. I personally reviewed the record. Patient is interviewed and examined at bedside. Patient's care is coordinated with Janice Yu [facility] [employer]. Please refer to the documentation above for details of patient's presentation and for discussion of other issues.
[2018-07-02] MEDS ORDERED: dilTIAZem HCl 125 MG in DEXTROSE 5% 100 ML IV SCH (20:00)
[2018-07-02] MEDS: METOPROLOL TARTRATE 25 MG TAB PO SCH (20:04)
[2018-07-02] MEDS ORDERED: FUROSEMIDE 20 MG in SYRINGE 0 ML IV ONE (23:05)
[2018-07-02 23:25] LABS: Partial Thromboplastin Ratio 1.5; Partial Thromboplastin Time 41.5 Seconds (21.0-31.0)
[2018-07-03] MEDS ORDERED: HEPARIN IV BOLUS 4,000 UNITS in SYRINGE 0 ML IV ONE
[2018-07-03] MEDS: METOPROLOL TARTRATE 25 MG TAB PO SCH ×4 (01:04→17:46)
[2018-07-03 02:15] LABS: Hematocrit (blood only) 44.5 % (42-52); Hemoglobin 14.8 g/dL (14.0-18.0); Mean Corpuscular Hgb Conc 33.3 g/dL (32-36); Mean Corpuscular Volume 89.2 fL (80-100); Mean Platelet Volume 10.8 fL (7.4-10.4); Platelet Count 292 K/uL (130-400); RDW Coefficient of Variation 14.1 % (11.5-14.5); Red Blood Count 4.99 M/uL (4.7-6.1); White Blood Count 9.14 K/uL (4.8-10.8)
[2018-07-03 02:35] LABS: BUN Creatinine Ratio 14.2 (10-20); Blood Urea Nitrogen 14 mg/dl (7-18); Calcium 8.6 mg/dl (8.5-10.1); Carbon Dioxide 31 mmol/L (21-32); Chloride 101 mmol/L (98-107); Creatinine Clr Calc Pharmacy 103.2 ml/min; Est GFR (African American) 97.3; Est GFR (Non-African American) 83.9; Glucose 94 mg/dl (70-99); Magnesium 2.4 mg/dl (1.8-2.4); Potassium 3.6 mmol/L (3.5-5.1); Sodium 136 mmol/L (136-145)
[2018-07-03 02:40] LABS: Troponin I < 0.015 ng/ml (0-0.045)
[2018-07-03 06:43] LABS: Partial Thromboplastin Time 80.1 Seconds (21.0-31.0)
[2018-07-03] MEDS: Heparin Adult STANDARD Wt-Based Dextrose 5% 25,000 units/500 mL IV SCH (06:49)
[2018-07-03] MEDS: LISINOPRIL 40 MG TAB PO SCH (07:52)
[2018-07-03] MEDS ORDERED: AMLODIPINE BESYLATE 5 MG TAB PO SCH (09:00)
[2018-07-03] MEDS ORDERED: POTASSIUM CHLORIDE 20 MEQ TABCR PO STA (10:04)
[2018-07-03] MEDS ORDERED: FUROSEMIDE 20 MG in SYRINGE 0 ML IV ONE (10:28)
--- NOTE | 2018-07-03 10:57 | Cardiology Consultation ---
Date of Consultation July 03, 2018 Assessment & Plan (1) New onset atrial fibrillation: Patient is currently on diltiazem 5 mg/h. We will discontinue this and continue metoprolol tartrate 25 mg p.o. every 6 for now. 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 We discussed rate control versus rhythm control strategy. At this point, we will proceed with rate control, with plans for possible direct-current cardioversion after 4 weeks of therapeutic anticoagulation. In terms of stroke prophylaxis, the patient's [id number] score is 2 for h/o HTN and heart failure. Anticoagulation is therefore recommended for stroke prophylaxis. Will transition from heparin to Eliquis. I have asked case management for help in terms of determining if the [id number] cost of Eliquis is feasible for the patient. (2) Heart failure with preserved ejection fraction: Patient is received 2 doses of IV furosemide thus far. He notes urinating a significant amount overnight last night. I do not think his intake and output summary has been added up yet in the computer. We will proceed with furosemide 20 mg x 1 this morning and 40 mg of potassium chloride. Given the patient's strong family history of ischemic heart disease, will likely proceed with a pharmacologic nuclear stress test as part of ischemic work-up after he is stable from an A. fib standpoint. This will be pursued as an outpatient. (3) Hypertension: Continue amlodipine, lisinopril, metoprolol. (4) Obesity: Patient describes snoring. He may very well have underlying obstructive sleep apnea and I recommend that he is screened for this as an outpatient. History of Present Illness Attending Physician: Bj Carpio MD History of Present Illness Pedro Prasad is a 63 year old male seen in cardiology consultation per the request of MARISSA Hassan of the [facility] service for the evaluation of recent exertional shortness of breath and new diagnosis of atrial fibrillation. The patient's primary care provider is Dr. Jose J Esquivel. The patient has not previously followed with cardiology. 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 For the last month, he has noted progressive shortness of breath with exertion. It is progressed to the point that he felt short of breath when trying to lie flat to sleep and he stated that he would often times have to sit up in order to catch his breath. He was seen as an acute visit with primary care yesterday and was diagnosed with atrial fibrillation with rapid ventricular response. EKG performed upon arrival to the emergency department yesterday 07/02/2018 at 1339 revealed atrial fibrillation with rapid ventricular response of 126 bpm with mild nonspecific ST changes. Compared to a prior EKG performed at the hospital in 2008 atrial fibrillation had replaced sinus rhythm and the rate had increased by 55 bpm. His initial blood pressure was elevated at 175/121. Chest x-ray revealed mild increase in the cardiac silhouette and interstitial edema consistent with congestive heart failure. He received a bolus of IV diltiazem for rate control as well as a dose of IV furosemide just after 5 PM yesterday and again last evening with improvement in his heart rate and breathing. He remained on a diltiazem infusion at 5 mg/h overnight. His prior to hospital atenolol has been placed on hold he was placed on metoprolol tartrate 25 mg p.o. every 6 hours. On telemetry, he remains in atrial fibrillation with rates in the range of 70 to 80 bpm this morning. He has been tolerating a heparin infusion without any bleeding problems thus far. Past Medical History: Hypertension Obesity Garcia's esophagus Social History: Patient's spouse just over 25 years ago. He has a girlfriend who stays with him from time to time but otherwise he lives independently. He is a non-smoker. Family History: Father secondary to stroke and myocardial infarction at the age of 78. The patient's father suddenly in his early 60s due to what the patient describes as a massive stroke. The patient's uncle who was his father's twin brother suddenly at the age of 55 due to a presumed myocardial infarction. The patient has 2 sisters neither of whom have heart disease. Allergies Allergy/AdvReac Type Severity Reaction Status Date / Time Penicillins Allergy RASH Unverified 07/02/18 14:44 Home Medications Home Medications Medication Instructions Recorded Confirmed Type amlodipine 5 mg PO DAILY 07/02/18 07/02/18 History atenolol 100 mg PO DAILY 07/02/18 07/02/18 History baclofen 10 mg PO BID PRN 07/02/18 07/02/18 History hydrochlorothiazide 25 mg PO DAILY 07/02/18 07/02/18 History lisinopril 40 mg PO DAILY 07/02/18 07/02/18 History oxycodone-acetaminophen 1 tab PO HS PRN 07/02/18 07/02/18 History Patient History Medical History Barretts esophagus (Chronic) Obesity (Chronic) Hypertension (Chronic) Surgical History Hx of tonsillectomy (Chronic) Family History Mother Heart disease First [place] in her early 60s, fatal AK at age 78 Father Stroke fatal CVA at age 69 Social History Preferred Language: Nepali Communication Ability: Effective Beliefs That Will Affect Care: None Current Living Situation: Significant Other current occupational status: employed Other Information That Helps Us Care for You: No Feels Safe at Home: Yes Safety Concerns: Feels Safe At This Time Smoking Status: Never smoker Hx Alcohol Use: Yes Alcohol type: beer Hx Substance Use: No Review of Systems Review of Systems: All systems reviewed & are unremarkable except as noted in HPI & below Physical Exam Constitutional: + obese Comfortable, no acute distress Respiratory: no respiratory distress, no labored breathing and does not use accessory muscles Auscultation: + diminished lung sounds (Mildly decreased breath sounds the bases); no rales, no rhonchi and no wheezes Cardiovascular: Rate/Rhythm: + irregularly irregular Heart Sounds: no murmur and no cardiac rub Vessels: no JVD Extremities: no edema Gastrointestinal (Abdomen): normal bowel sounds, soft, nontender, no hepatosplenomegaly Skin: no rashes, warm and dry Neurologic: moves all extremities; no focal motor deficits No focal deficits Results & Data Vital Signs (Past 12 Hours) Vital Signs Temp Pulse Resp BP Pulse Ox 07/03/18 07:47 36.7 C 71 20 120/83 96 07/03/18 05:54 85 124/81 07/03/18 04:00 36.5 C 74 19 117/88 94 07/03/18 01:03 84 112/80 07/02/18 23:20 37.4 C 86 19 110/71 96 Laboratory Results Cardiac Enzymes 07/02/18 07/02/18 07/03/18 Range/Units 13:55 19:56 01:54 AST 26 (15-37) U/L Troponin I < 0.015 0.017 < 0.015 (0-0.045) ng/ml Coagulation 07/02/18 07/02/18 07/03/18 Range/Units 13:55 23:04 05:57 PT 11.2 (9.0-12.0) Seconds APTT 26.5 41.5 H 80.1 H* (21.0-31.0) Seconds CBC 07/02/18 07/03/18 Range/Units 13:55 01:54 WBC 9.51 9.14 (4.8-10.8) K/uL RBC 4.95 4.99 (4.7-6.1) M/uL Hgb 14.6 14.8 (14.0-18.0) g/dL Hct 44.4 44.5 (42-52) % Plt Count 295 292 (130-400) K/uL Neut # (Auto) 6.63 H (1.4-6.5) K/uL Lymph # (Auto) 1.50 (1.2-3.4) K/uL [place] # (Auto) 1.09 H (0.11-0.59) K/uL Eos # (Auto) 0.25 (0-0.5) K/uL Baso # (Auto) 0.02 (0-0.2) K/uL Comprehensive Metabolic Panel 07/02/18 07/03/18 Range/Units 13:55 01:54 Sodium 134 L 136 (136-145) mmol/L Potassium 4.0 3.6 (3.5-5.1) mmol/L Chloride 102 101 (98-107) mmol/L Carbon Dioxide 28 31 (21-32) mmol/L BUN 17 14 (7-18) mg/dl Creatinine 1.09 0.97 (0.6-1.4) mg/dl Glucose 89 94 (70-99) mg/dl Calcium 8.7 8.6 (8.5-10.1) mg/dl AST 26 (15-37) U/L ALT 36 (12-78) U/L Alkaline Phosphatase 90 (45-117) U/L Total Protein 8.3 H (6.4-8.2) gm/dl Albumin 3.7 (3.4-5.0) gm/dl Intake and Output 07/02/18 07/03/18 07/03/18 22:59 06:59 14:59 Intake Total 275 / 747.817 472.817 / 747.817 65.25 / 65.25 Output Total 325 / 675 350 / 675 Balance -50 / 72.817 122.817 / 72.817 65.25 / 65.25 Intake: IV 472.817 / 472.817 65.25 / 65.25 HEPARIN SODIUM/DEXTROSE 25,000 472.817 / 472.817 units In 500 ml @ 1,650 UNITS/ HR 33 mls/hr IV .[id number] [facility] Rx #:[id number] Cardizem 125 mg In D5 100 ml @ 65.25 / 65.25 5 MG/HR 5 mls/hr IV .Q24H [facility] Rx#:[id number] Oral 275 / 275 Output: Urine 325 / 675 350 / 675 Other: Weight 122 kg 119.9 kg Diagnostic Findings EKG performed this morning 07/03/2018 at 6:53 AM revealed atrial fibrillation 79 bpm, mild nonspecific ST changes noted in the inferior leads, compared to the prior tracing yesterday, ventricular rate has improved by 47 bpm. Patient remains in atrial fibrillation. Resting transthoracic echocardiogram performed this morning reviewed independently revealed borderline diffuse left ventricular hypokinesis with no regional wall motion abnormalities. Left ventricular systolic function is in the lower limit of normal with qualitative ejection fraction of 50 to 54%. Mild mitral regurgitation is noted. The inferior vena cava is mildly dilated with appropriate respiratory collapse consistent with intermediate right atrial pressure of 8 mmHg. Doppler findings do not suggest pulmonary hypertension. Medications Administered Current Inpatient Medications Acetaminophen (Tylenol) 650 mg PO Q4H PRN PRN Reason: Pain or Fever Stop: 08/01/18 19:33 Amlodipine Besylate (Norvasc) 5 mg PO DAILY [facility] Stop: 08/02/18 08:59 Apixaban (Eliquis) 5 mg PO BID [facility] Stop: 08/02/18 10:14 Lisinopril (Zestril) 40 mg PO DAILY [facility] Stop: 08/02/18 08:59 Last Admin: 07/03/18 07:52 Dose: 40 mg Documented by: Metoprolol Tartrate (Lopressor) 25 mg PO Q6 [facility] Stop: 08/01/18 19:33 Last Admin: 07/03/18 05:53 Dose: 25 mg Documented by: Oxycodone/Acetaminophen (Percocet 5mg/325mg) 1 tab PO HS PRN PRN Reason: Pain Stop: 07/16/18 19:33
[2018-07-03] MEDS: APIXABAN 5 MG TABLET PO SCH ×2 (11:46→21:32)
--- NOTE | 2018-07-03 13:39 | Hospitalist Progress Note ---
Date of Service July 03, 2018 Assessment & Plan (1) New onset atrial fibrillation: Atrial Fibrillation with Rapid Ventricular Response (on admission) Patient presenting from referral of PCPs office for evaluation of shortness of breath and new onset A. fib with RVR -In the ED on 07/02/18 patient was found to be in A. fib with RVR with heart rates in the 140s to 150s; Received 40 mg IV Lasix in the ED, patient was admitted to telemetry [place] and started on diltiazem drip and heparin drip -heart rate better controlled by night time of 07/02/18 -07/03/18: the diltiazem drip was discontinued and transitioned metoprolol tartrate 25 mg PO every 6 for now; transition from heparin drip to Eliquis. (2) CHF (congestive heart failure): acute congestive heart failure with preserved ejection fraction -CXR suggest CHF and also elevated proBNP -IV Lasix on 07/01/18, patient given addition IV Lasix 20 mg in AM of 07/03/18 and 40 mg of potassium chloride by cardiology service -Resting echocardiogram with EF in the range of 50 to 54% -cardiology service recommends pharmacologic nuclear stress test as part of ischemic work-up after he is stable from an A. fib standpoint as outpatient -Low Na+ diet, daily standing weights, strict I's and O's (3) Hypertension: Continue amlodipine, lisinopril, metoprolol Hold HCTZ Obesity with BMI 39 -cardiology service recommends screening for obstructive sleep apnea as outpatient. (4) DVT prophylaxis: anticoagulated by anticoagulation therapy -heparin drip was switched to Eliquis vy cardiology service starting 07/03/18 Subjective Patient continues to be in atrial fibrillation but heart rate is controlled. breathing on room air. denies chest pain. denies palpitations currently. no vomiting. no abdomen pain. no lightheadedness. no dizziness Physical Exam Constitutional: WD/WN, vitals as above Eyes: PERRL, conjunctivae normal, anicteric sclerae EOM intact bilaterally ENMT: external ear and nose normal, oropharynx normal Neck: trachea midline, no thyromegaly Respiratory: normal respiratory effort, lungs clear to auscultation Cardiovascular: Rate/Rhythm: regular rate and + irregularly irregular Gastrointestinal (Abdomen): normal bowel sounds, soft, nontender, no hepatosplenomegaly Musculoskeletal: no cyanosis or clubbing, extremities motor strength 5/5 Head/Neck/Chest: normocephalic and head atraumatic Neurologic: PERRL, EOMI, accommodation nl, no face palsy, no dysarthria CN's II-XI intact bilaterally Psychiatric: A+Ox3, euthymic affect Results & Data Vital Signs (Past 12 Hours) Vital Signs Temp Pulse Resp BP Pulse Ox 07/03/18 11:02 37.1 C 76 20 102/72 07/03/18 07:47 36.7 C 71 20 120/83 96 07/03/18 05:54 85 124/81 07/03/18 04:00 36.5 C 74 19 117/88 94
[2018-07-04] MEDS: METOPROLOL TARTRATE 25 MG TAB PO SCH ×2 (00:06→05:40)
[2018-07-04] MEDS: LISINOPRIL 40 MG TAB PO SCH (07:29)
[2018-07-04] MEDS: APIXABAN 5 MG TABLET PO SCH ×2 (07:29→20:36)
[2018-07-04] MEDS: METOPROLOL SUCC 50MG EXT REL TAB PO SCH ×2 (07:29→20:36)
[2018-07-04 07:38] LABS: Hematocrit (blood only) 46.5 % (42-52); Hemoglobin 15.5 g/dL (14.0-18.0); Mean Corpuscular Hgb Conc 33.3 g/dL (32-36); Mean Corpuscular Volume 89.1 fL (80-100); Mean Platelet Volume 10.5 fL (7.4-10.4); Platelet Count 291 K/uL (130-400); RDW Coefficient of Variation 14.1 % (11.5-14.5); RDW Standard Deviation 45.9 fL (36.4-46.3); Red Blood Count 5.22 M/uL (4.7-6.1); White Blood Count 9.41 K/uL (4.8-10.8)
[2018-07-04 08:18] LABS: BUN Creatinine Ratio 14.7 (10-20); Calcium 8.9 mg/dl (8.5-10.1); Creatinine Clr Calc Pharmacy 93.7 ml/min; Est GFR (African American) 89.4; Est GFR (Non-African American) 77.1; Magnesium 2.6 mg/dl (1.8-2.4); Potassium 4.2 mmol/L (3.5-5.1)
--- NOTE | 2018-07-04 09:51 | Cardiology Progress Note ---
Date of Service July 04, 2018 Assessment & Plan (1) New onset atrial fibrillation: Rate control: Metoprolol tartrate 25 mg p.o. every 6 has been transitioned to metoprolol succinate 50 mg twice daily. At digoxin given coexistent heart failure with low normal LVEF, 0.25 mg IV now, and 0.25 mg p.o. daily starting at 1600. Stroke prophylaxis: Eliquis 5 mg twice daily. -We will tentatively plan for direct-current cardioversion after 4 weeks of therapeutic uninterrupted anticoagulation. (2) Heart failure with preserved ejection fraction: Transition to oral furosemide 20 mg daily. Kidney function electro lites stable today. (3) Obesity: Weight loss recommended. Will likely need outpatient screening for obstructive sleep apnea. (4) Hypertension: Prior to hospital atenolol was discontinued in favor of metoprolol succinate. Amlodipine on hold.-Perhaps will be replaced by a higher dose beta-esther upon discharge. Continue lisinopril 40 mg daily Blood pressure reasonably well controlled. Subjective Chief complaint: Follow-up shortness of breath Subjective patient states her breathing has improved. He has been urinating significantly with 2 L of urine output noted 07/02/2018 to 07/03/2018, and another 2.6 L of urine output from 659 yesterday to 659 today. The patient remains in atrial fibrillation. He is off IV diltiazem and off of IV heparin. His ventricular rates are relatively controlled in the 80 to 90 bpm range at rest however with minimal activity such as eating or walking to the bathroom atrial fibrillation with rapid ventricular response to the 100 2130 bpm range as noted. Physical Exam Physical Exam: General: no acute distress and stated age Eyes: conjunctiva are pink and non-injected, sclera clear Neck: normal jugular venous pulse, no hepatojugular reflux Chest: normal shape and normal respiratory effort Lungs: clear to auscultation and percussion Cardiac Exam: -Irregular rhythm, no murmurs Abdomen: abdomen soft, non-tender, no abnormal masses and no hepatosplenomegaly Musculoskeletal: no gait disturbance, no weakness Extremities: no edema and no cyanosis Neuro:awake, coversant, follows commands, no focal motor deficits Psych: appropriate affect and insight. Results & Data Vital Signs (Past 12 Hours) Vital Signs Temp Pulse Pulse Resp BP Pulse Ox 07/04/18 07:10 36.7 C 107 H 18 137/93 94 07/04/18 03:04 36.5 C 78 18 128/95 97 07/03/18 22:57 36.6 C 82 18 130/89 95 Laboratory Results CBC 07/04/18 Range/Units 07:12 WBC 9.41 (4.8-10.8) K/uL RBC 5.22 (4.7-6.1) M/uL Hgb 15.5 (14.0-18.0) g/dL Hct 46.5 (42-52) % Plt Count 291 (130-400) K/uL Comprehensive Metabolic Panel 07/04/18 Range/Units 07:12 Sodium 135 L (136-145) mmol/L Potassium 4.2 D (3.5-5.1) mmol/L Chloride 103 (98-107) mmol/L Carbon Dioxide 28 (21-32) mmol/L BUN 15 (7-18) mg/dl Creatinine 1.04 (0.6-1.4) mg/dl Glucose 93 (70-99) mg/dl Calcium 8.9 (8.5-10.1) mg/dl Intake and Output 07/03/18 07/04/18 07/04/18 22:59 06:59 14:59 Intake Total 920 / 7.40 Output Total 1200 / 2600 Balance -280 / -572.60 Intake: Oral 920 / 1790 Output: Urine 1200 / 2600 Other: # Unmeasured Voids 2 Weight 116.1 kg Diagnostic Findings EKG performed today 07/04/2018 6:48 AM revealed atrial fibrillation [address] segments. Compared to the prior from 07/03/2018 the nonspecific lateral T wave abnormality is no longer present. Medications Administered Current Inpatient Medications Acetaminophen (Tylenol) 650 mg PO Q4H PRN PRN Reason: Pain or Fever Stop: 08/01/18 19:33 Apixaban (Eliquis) 5 mg PO BID MEREDITH Stop: 08/02/18 10:14 Last Admin: 07/04/18 07:29 Dose: 5 mg Documented by: Digoxin (Lanoxin) 0.25 mg PO DAILY@1600 MEREDITH Stop: 08/03/18 15:59 Furosemide (Lasix) 20 mg PO QAM [facility] Stop: 08/04/18 08:59 Furosemide (Lasix) 20 mg PO NOW ONE Stop: 07/04/18 10:01 Digoxin 250 mcg/ Syringe 10 mls @ 2 mls/min IV NOW ONE Stop: 07/04/18 10:04 Lisinopril (Zestril) 40 mg PO DAILY [facility] Stop: 08/02/18 08:59 Last Admin: 07/04/18 07:29 Dose: 40 mg Documented by: Metoprolol Succinate (Toprol Xl) 50 mg PO BID [facility] Stop: 08/03/18 08:59 Last Admin: 07/04/18 07:29 Dose: 50 mg Documented by: Oxycodone/Acetaminophen (Percocet 5mg/325mg) 1 tab PO HS PRN PRN Reason: Pain Stop: 07/16/18 19:33
[2018-07-04] MEDS ORDERED: FUROSEMIDE 20 MG TAB PO ONE (10:00)
[2018-07-04] MEDS ORDERED: DIGOXIN 250 MCG in SYRINGE 9 ML IV ONE (10:00)
--- NOTE | 2018-07-04 11:52 | Hospitalist Progress Note ---
Date of Service July 04, 2018 Assessment & Plan (1) New onset atrial fibrillation: Atrial Fibrillation with Rapid Ventricular Response (on admission) Patient presenting from referral of PCPs office for evaluation of shortness of breath and new onset A. fib with RVR -In the ED on 07/02/18 patient was found to be in A. fib with RVR with heart rates in the 140s to 150s; Received 40 mg IV Lasix in the ED, patient was admitted to telemetry [facility] and started on diltiazem drip and heparin drip -heart rate better controlled by night time of 07/02/18 -07/03/18: the diltiazem drip was discontinued and transitioned metoprolol tartrate 25 mg PO every 6 for now; transition from heparin drip to Eliquis. -07/04/18: Metoprolol tartrate 25 mg p.o. every 6 has been transitioned to metoprolol succinate 50 mg twice daily; cardiology also ordered digoxin; cardiology service will tentatively plan for direct-current cardioversion after 4 weeks of therapeutic uninterrupted anticoagulation. (2) CHF (congestive heart failure): acute congestive heart failure with preserved ejection fraction -CXR suggest CHF and also elevated proBNP -IV Lasix on 07/01/18, patient given addition IV Lasix 20 mg in AM of 07/03/18 and 40 mg of potassium chloride by cardiology service -Resting echocardiogram with EF in the range of 50 to 54% -07/04/18 Transition to oral furosemide 20 mg daily and started digoxin as per cardiology service -cardiology service recommends pharmacologic nuclear stress test as part of ischemic work-up after he is stable from an A. fib standpoint as outpatient -Low Na+ diet, daily standing weights, strict I's and O's (3) Hypertension: Continue amlodipine, lisinopril, metoprolol Hold HCTZ since patient is now on daily Lasix Obesity with BMI 39 -cardiology service recommends screening for obstructive sleep apnea as outpatient. (4) DVT prophylaxis: anticoagulated by anticoagulation therapy -heparin drip was switched to Eliquis by cardiology service starting 07/03/18, continue Eliquis 5 mg BID Subjective Patient seen and examined at bedside. No acute distress. still in atrial fibrillation. had episode fo tachycardia when ambulated to bathroom this AM. patient expresses concern that he may not be able to return to his work at [employer] given that exertion is causing tachycardia. patient denies chest pain. on room air. no acute shortness of breath. no headache. no lightheadedness. no vomiting. Physical Exam Constitutional: WD/WN, vitals as above Eyes: PERRL, conjunctivae normal, anicteric sclerae EOM intact bilaterally ENMT: external ear and nose normal, oropharynx normal Neck: trachea midline, no thyromegaly Respiratory: normal respiratory effort, lungs clear to auscultation Cardiovascular: Rate/Rhythm: regular rate and + irregularly irregular Gastrointestinal (Abdomen): normal bowel sounds, soft, nontender, no hepatosplenomegaly Musculoskeletal: no cyanosis or clubbing, extremities motor strength 5/5 Head/Neck/Chest: normocephalic and head atraumatic Neurologic: PERRL, EOMI, accommodation nl, no face palsy, no dysarthria CN's II-XI intact bilaterally Psychiatric: A+Ox3, euthymic affect Results & Data Vital Signs (Past 12 Hours) Vital Signs Temp Pulse Pulse Resp BP Pulse Ox 07/04/18 11:48 36.5 C 62 18 119/87 98 07/04/18 10:44 107 H 07/04/18 07:10 36.7 C 107 H 18 137/93 94 07/04/18 03:04 36.5 C 78 18 128/95 97
[2018-07-04] MEDS: DIGOXIN 0.25 MG TAB PO SCH (16:48)
[2018-07-05] MEDS: FUROSEMIDE 20 MG TAB PO SCH (07:45)
[2018-07-05] MEDS: METOPROLOL SUCC 50MG EXT REL TAB PO SCH ×2 (07:47→20:08)
[2018-07-05] MEDS: LISINOPRIL 40 MG TAB PO SCH (07:47)
[2018-07-05] MEDS: APIXABAN 5 MG TABLET PO SCH ×2 (07:49→20:08)
[2018-07-05 08:27] LABS: Hematocrit (blood only) 47.7 % (42-52); Hemoglobin 16.5 g/dL (14.0-18.0); Mean Corpuscular Hgb Conc 34.6 g/dL (32-36); Mean Corpuscular Volume 88.3 fL (80-100); Mean Platelet Volume 10.5 fL (7.4-10.4); Platelet Count 309 K/uL (130-400); RDW Coefficient of Variation 14.1 % (11.5-14.5); RDW Standard Deviation 45.4 fL (36.4-46.3); White Blood Count 9.53 K/uL (4.8-10.8)
[2018-07-05 09:02] LABS: BUN Creatinine Ratio 14.3 (10-20); Calcium 9.2 mg/dl (8.5-10.1); Creatinine Clr Calc Pharmacy 99.8 ml/min; Est GFR (African American) 96.1; Est GFR (Non-African American) 82.9; Magnesium 2.4 mg/dl (1.8-2.4); Potassium 4.1 mmol/L (3.5-5.1)
--- NOTE | 2018-07-05 12:30 | Anesthesiology Consultation ---
Date of Service July 05, 2018 Assessment & Plan (1) Encounter for pre-operative examination: Chart Review Chart Review: Acceptable Risk for Surgery Consults Requested none ASA ASA3 Proposed Anesthesia Anesthesia Type: MAC Risk / Benefits Reviewed With: PT / POA / Parent / Guardian, Accepts Plan and Informed Consent Obtained History Surgery Operation Date: 07/06/18 07:45 Proposed Procedures p Cardioversion Medical Management Trainer with Anesthesia - Bob Harris, DO TRIXIE/Cardioversion Height/Weight Height: 5 ft 9 in Weight: 116.9 kg Allergies Allergy/AdvReac Type Severity Reaction Status Date / Time Penicillins Allergy RASH Unverified 07/02/18 14:44 Medications Home Medications Medication Instructions Recorded Confirmed Last Taken amlodipine 5 mg PO DAILY 07/02/18 07/02/18 Unknown atenolol 100 mg PO DAILY 07/02/18 07/02/18 Unknown baclofen 10 mg PO BID PRN 07/02/18 07/02/18 Unknown hydrochlorothiazide 25 mg PO DAILY 07/02/18 07/02/18 Unknown lisinopril 40 mg PO DAILY 07/02/18 07/02/18 Unknown oxycodone-acetaminophen 1 tab PO HS PRN 07/02/18 07/02/18 Unknown Active Medications Generic Name Dose Route Start Last Admin Trade Name Freq PRN Reason Stop Dose Admin Apixaban 5 mg 07/03/18 10:15 07/06/18 07:02 Eliquis PO 08/02/18 10:14 5 mg BID MEREDITH Administration Digoxin 0.25 mg 07/04/18 16:00 07/05/18 16:47 Lanoxin PO 08/03/18 15:59 0.25 mg DAILY@1600 MEREDITH Administration Furosemide 20 mg 07/05/18 09:00 07/05/18 07:45 Lasix PO 08/04/18 08:59 20 mg QAM MEREDITH Administration Lisinopril 40 mg 07/03/18 09:00 07/05/18 07:47 Zestril PO 08/02/18 08:59 40 mg DAILY MEREDITH Administration Metoprolol Succinate 50 mg 07/04/18 09:00 07/05/18 20:08 Toprol Xl PO 08/03/18 08:59 50 mg BID MEREDITH Administration NPO Date Last Intake of Fluids: 07/05/18 Time Last Intake of Fluids: 23:00 Date Last Intake of Solids: 07/05/18 Time Last Intake of Solids: 23:00 Past Medical History Medical History Heart failure with preserved ejection fraction CHF (congestive heart failure) with preserved EF New onset atrial fibrillation Was on diltiazem IV, now on metoprolol Barretts esophagus (Chronic) Obesity (Chronic) Hypertension (Chronic) Exercise / Class Metabolic Activity II 4-5 Yardwork/Stairs/Walk up hill Past Family History Family History Mother Heart disease First NV in her early 60s, fatal NV at age 78 Father Stroke fatal CVA at age 69 Past Surgical History Surgical History Hx of tonsillectomy (Chronic) S/P knee surgery Past Anesthesia History No Hx of Anesthesia Complications and No Family Hx of Anesthesia Complications History of PONV No Hx of PONV and No Hx of Motion Sickness Social History Smoking Status: Never smoker Hx Alcohol Use: Yes Alcohol type: beer alcohol intake frequency: a few times a week Hx Substance Use: No Physical Exam Vital Signs Last Vital Signs Temp 98.2 F 07/06/18 03:35 Pulse 80 07/06/18 03:35 Resp 20 07/05/18 22:32 BP 124/88 07/06/18 03:35 Pulse Ox 96 07/06/18 03:35 ENMT Mouth: no dentition abnormality Thyromental Distance: > or= 3.5 Finger Breadths Mallampati Class: III Neck normal visual inspection Respiratory normal respiratory effort Auscultation: lungs clear to auscultation bilaterally Cardiovascular Rate/Rhythm: + abnormal rate and + abnormal rhythm Testing Electrocardiogram Date: 07/04/18 Findings: + AFIB @ (103 bpm) Atrial fibrillation with rapid ventricular response Abnormal ECG When compared with ECG of 03-JUL-2018 06:53, HR has increased Confirmed by Juan Carlos Briscoe ([id number]) on 07/05/2018 7:08:06 AM Chest X-Ray Date: 07/02/18 Findings: + cardiomegaly (Mild) FINDINGS: Mild cardiomegaly., Pulmonary vasculature. Diaphragms are smooth. IMPRESSION: Congestive heart failure. Echocardiogram Date: 07/03/18 EF: 50-54% LV Function: normal (low normal) Valvular Disease: no There is normal left ventricular wall thickness Borderline diffuse LV hypokinesis is noted with no RWMA LV systolic function is low normal The qualitative LV EF is in the range of 50-54% There is mild MR Laboratory Results 07/06/18 05:20 07/06/18 05:20 PT 11.2 Seconds (9.0-12.0) 07/02/18 13:55 INR 1.1 (0.9-1.1) 07/02/18 13:55 APTT 80.1 Seconds (21.0-31.0) H* 07/03/18 05:57
--- NOTE | 2018-07-05 12:31 | Cardiology Progress Note ---
Date of Service July 05, 2018 Assessment & Plan (1) Heart failure with preserved ejection fraction: Likely due to underlying atrial fibrillation with rapid ventricular response. Continue furosemide 20 mg by mouth daily. Potassium stable on chemistry panel today. (2) New onset atrial fibrillation: Patient with ongoing atrial fibrillation despite escalation of metoprolol succinate dose to 50 mg twice daily and the addition of digoxin. Based on his symptoms, he is likely been in atrial fibrillation for at least a month. Given ongoing rapid ventricular response with minimal exertion despite medication, recommend proceeding with transesophageal echocardiogram guided direct current cardioversion tomorrow. I think he is reasonably well compensated from a respiratory/heart failure standpoint. Anesthesia consult placed. Continue Eliquis for stroke prophylaxis. (3) Hypertension: Continue metoprolol, lisinopril, furosemide. Subjective Chief complaint: Follow-up exertional shortness of breath, orthopnea Subjective: Patient remains in atrial fibrillation. At rest, his rates are down to the 80 bpm range, however with minimal activity such as walking to the bathroom atrial fibrillation with rapid ventricular response in the range of 120 to 150 bpm has been observed. He notes that his orthopnea and exertional shortness of breath has improved to some degree compared to his initial presentation to the hospital, but he certainly still notes exertional shortness of breath. Review of Systems Review of Systems: All systems reviewed & are unremarkable except as noted in HPI & below Physical Exam Constitutional: WD/WN, vitals as above Respiratory: normal respiratory effort, lungs clear to auscultation Cardiovascular: Rate/Rhythm: + tachycardic and + irregularly irregular Heart Sounds: no murmur Vessels: no JVD Extremities: no calf tenderness, no pedal edema and no edema Gastrointestinal (Abdomen): normal bowel sounds, soft, nontender, no hepatosp lenomegaly Skin: no rashes, warm and dry Neurologic: moves all extremities; no focal motor deficits No focal motor deficits Psychiatric: A+Ox3, euthymic affect Judgement: good judgement Results & Data Vital Signs (Past 12 Hours) Vital Signs Temp Pulse Resp BP Pulse Ox 07/05/18 10:49 36.8 C 82 20 125/80 94 07/05/18 07:45 36.8 C 87 18 135/82 98 07/05/18 04:00 36.6 C 76 138/89 98 07/05/18 02:45 145 H 07/05/18 02:00 135 H Laboratory Results CBC 07/05/18 Range/Units 08:00 WBC 9.53 (4.8-10.8) K/uL RBC 5.40 (4.7-6.1) M/uL Hgb 16.5 (14.0-18.0) g/dL Hct 47.7 (42-52) % Plt Count 309 (130-400) K/uL Comprehensive Metabolic Panel 07/05/18 Range/Units 08:00 Sodium 135 L (136-145) mmol/L Potassium 4.1 (3.5-5.1) mmol/L Chloride 103 (98-107) mmol/L Carbon Dioxide 25 (21-32) mmol/L BUN 14 (7-18) mg/dl Creatinine 0.98 (0.6-1.4) mg/dl Glucose 122 H (70-99) mg/dl Calcium 9.2 (8.5-10.1) mg/dl Intake and Output 07/04/18 07/05/18 07/05/18 22:59 06:59 14:59 Intake Total 480 / 1120 400 / 1120 Output Total 800 / 2750 1050 / 2750 Balance -320 / -1630 -650 / -1630 Intake: Oral 480 / 1120 400 / 1120 Output: Urine 800 / 2750 1050 / 2750 Other: Weight 116.9 kg
--- NOTE | 2018-07-05 14:21 | Hospitalist Progress Note ---
Date of Service July 05, 2018 Assessment & Plan (1) New onset atrial fibrillation: Atrial Fibrillation with Rapid Ventricular Response (on admission) Patient presenting from referral of PCPs office for evaluation of shortness of breath and new onset A. fib with RVR -In the ED on 07/02/18 patient was found to be in A. fib with RVR with heart rates in the 140s to 150s; Received 40 mg IV Lasix in the ED, patient was admitted to telemetry [facility] and started on diltiazem drip and heparin drip -heart rate better controlled by night time of 07/02/18 -07/03/18: the diltiazem drip was discontinued and transitioned metoprolol tartrate 25 mg PO every 6 for now; transition from heparin drip to Eliquis. -07/04/18: Metoprolol tartrate 25 mg p.o. every 6 has been transitioned to metoprolol succinate 50 mg twice daily; cardiology also ordered digoxin as daily -07/05/18:continue metoprolol and digoxin Given ongoing rapid ventricular response with minimal exertion despite medication, cardiology service recommend proceeding with transesophageal echocardiogram guided direct current cardioversion for 07/06/18 (2) CHF (congestive heart failure): acute congestive heart failure with preserved ejection fraction -CXR suggest CHF and also elevated proBNP -IV Lasix on 07/01/18, patient given addition IV Lasix 20 mg in AM of 07/03/18 and 40 mg of potassium chloride by cardiology service -Resting echocardiogram with EF in the range of 50 to 54% -07/04/18 Transition to oral furosemide 20 mg daily and started digoxin as per cardiology service -cardiology service recommends pharmacologic nuclear stress test as part of ischemic work-up after he is stable from an A. fib standpoint as outpatient -Low Na+ diet, daily standing weights, strict I's and O's (3) Hypertension: Continue amlodipine, lisinopril, metoprolol Hold HCTZ since patient is now on daily Lasix Obesity with BMI 39 -cardiology service recommends screening for obstructive sleep apnea as outpatient. (4) DVT prophylaxis: anticoagulated by anticoagulation therapy -heparin drip was switched to Eliquis by cardiology service starting 07/03/18, continue Eliquis 5 mg BID Subjective Patient comfortable at rest. patient's heart rate is tachycardic and continues to be in atrial fibrillation with more tachycardia with exertion. currently on room air. denies abdomen pain. denies vomiting. no lightheadedness. no headache Patient has discussed with cardiology service about planned cardioversion on 07/06/18 Physical Exam Constitutional: WD/WN, vitals as above Eyes: PERRL, conjunctivae normal, anicteric sclerae EOM intact bilaterally ENMT: external ear and nose normal, oropharynx normal Neck: trachea midline, no thyromegaly Respiratory: normal respiratory effort, lungs clear to auscultation Cardiovascular: Rate/Rhythm: + tachycardic and + irregularly irregular Gastrointestinal (Abdomen): normal bowel sounds, soft, nontender, no hepatosplenomegaly Musculoskeletal: no cyanosis or clubbing, extremities motor strength 5/5 Head/Neck/Chest: normocephalic and head atraumatic Neurologic: PERRL, EOMI, accommodation nl, no face palsy, no dysarthria CN's II-XI intact bilaterally Psychiatric: A+Ox3, euthymic affect Results & Data Vital Signs (Past 12 Hours) Vital Signs Temp Pulse Resp BP Pulse Ox 07/05/18 10:49 36.8 C 82 20 125/80 94 07/05/18 07:45 36.8 C 87 18 135/82 98 07/05/18 04:00 36.6 C 76 138/89 98 07/05/18 02:45 145 H
[2018-07-05] MEDS: DIGOXIN 0.25 MG TAB PO SCH (16:47)
[2018-07-06 05:33] LABS: Basophils # (auto) 0.02 K/uL (0-0.2); Basophils % (auto) 0.2 %; Eosinophils % (auto) 4.3 %; Hematocrit (blood only) 47.2 % (42-52); Hemoglobin 15.9 g/dL (14.0-18.0); Immature Granulocytes # (auto) 0.06 K/uL (0.00-0.02); Immature Granulocytes % (auto) 0.6 %; Lymphocytes # (auto) 1.45 K/uL (1.2-3.4); Lymphocytes % (auto) 15.5 %; Mean Corpuscular Hgb Conc 33.7 g/dL (32-36); Mean Corpuscular Volume 87.7 fL (80-100); Mean Platelet Volume 10.1 fL (7.4-10.4); Monocytes % (auto) 12.9 %; Neutrophils % (auto) 66.5 %; Platelet Count 291 K/uL (130-400); RDW Coefficient of Variation 13.9 % (11.5-14.5); RDW Standard Deviation 44.5 fL (36.4-46.3); Red Blood Count 5.38 M/uL (4.7-6.1); White Blood Count 9.33 K/uL (4.8-10.8)
[2018-07-06 05:58] LABS: Potassium 4.3 mmol/L (3.5-5.1)
[2018-07-06 05:59] LABS: Albumin Level 3.4 gm/dl (3.4-5.0); BUN Creatinine Ratio 14.7 (10-20); Calcium 8.7 mg/dl (8.5-10.1); Creatinine Clr Calc Pharmacy 94.1 ml/min; Est GFR (African American) 89.4; Est GFR (Non-African American) 77.1; Magnesium 2.3 mg/dl (1.8-2.4)
[2018-07-06 06:01] LABS: Albumin Globulin Ratio 0.8 (0.9-2); Bilirubin,Total 0.6 mg/dl (0.2-1); Globulin 4.3 gm/dl (2.5-4.0); Total Protein 7.7 gm/dl (6.4-8.2)
[2018-07-06] MEDS: APIXABAN 5 MG TABLET PO SCH (07:02)
--- NOTE | 2018-07-06 08:02 | Cardioversion ---
Date of Service July 06, 2018 Electrical Cardioversion Rpt Electrical Cardioversion Report Date of Surgery July 06, 2018 Pre & Post Diagnosis Preprocedure diagnosis: Symptom medic atrial fibrillation with rapid ventricular response noted with minimal activity Post procedure diagnosis: No left atrial or left atrial appendage thrombus, successful conversion to sinus rhythm. Operation Date: 07/06/18 07:45 Procedure Transesophageal echocardiogram guided direct current cardioversion: The patient received 5 mg of Eliquis at 72 this morning prior to arrival to the cardiac catheterization staging area. After informed consent was obtained and a timeout was performed the patient was sedated with the assistance of anesthesia receiving a total of 140 mg of propofol and 40 mg of lidocaine intravenously. The patient underwent a focused limited transesophageal echocardiogram for risk stratification and no left atrial or left atrial appendage thrombus was noted. The patient then underwent synchronized direct-current cardioversion receiving a single dose of 200 J biphasic energy with successful conversion to sinus rhythm. Post procedure EKG performed 07/06/2018 at 747 a.m. revealed sinus rhythm 82 bpm with mild nonspecific ST changes. Plan: Transfer back to PCU for ongoing medication therapy. Repair Specialist Bob Harris DO Belly Dancer none Estimated Blood Loss 0 Findings Consistent with Post-Op Diagnosis
[2018-07-06] MEDS ORDERED: PROPOFOL IV EMULSION 10 MG/ML 20 ML VIAL IV ONE (08:04)
[2018-07-06] MEDS ORDERED: LIDOCAINE HCL 2% 2 ML VIAL/AMP(20MG/ML) INFIL ONE (08:04)
--- NOTE | 2018-07-06 08:15 | Anesthesiology Progress Note ---
Date of Service July 06, 2018 Anesthesia Post Procedure Vital Signs Vital Signs: Temp Pulse Pulse Resp BP Pulse Ox 07/06/18 03:35 98.2 F 80 124/88 96 07/05/18 22:32 97.7 F 71 20 108/70 96 07/05/18 19:03 97.9 F 82 19 114/68 95 07/05/18 16:47 108 H 07/05/18 15:04 98.1 F 65 20 139/86 95 07/05/18 10:49 98.2 F 82 20 125/80 94 Pain Intensity Generalized: Pain Intensity: 0 Transfer of Care Handoff Completed per policy Notes Mental Status: alert / awake / arousable and participated in evaluation Patient Amnestic to Procedure: Yes Nausea / Vomiting: adequately controlled Pain: adequately controlled Airway Patency, RR, SpO2: stable & adequate BP & HR: stable & adequate Hydration State: stable & adequate Anesthetic Complications: no major complications apparent and Pt Satisfied with anesthetic care
[2018-07-06] MEDS: FUROSEMIDE 20 MG TAB PO SCH (08:20)
[2018-07-06] MEDS: METOPROLOL SUCC 50MG EXT REL TAB PO SCH (08:20)
[2018-07-06] MEDS: LISINOPRIL 40 MG TAB PO SCH (08:20)
--- NOTE | 2018-07-06 09:37 | Cardiology Progress Note ---
Date of Service July 06, 2018 Assessment & Plan (1) New onset atrial fibrillation: Patient presented with complaints of 4 weeks of exertional shortness of breath and orthopnea. Found to have AF RVR. Remained in rapid rate despite medications. Low normal LVEF on TTE. Underwent TRIXIE guided DCVC this am 5/6, to SR. Will increase activity. Ambulate in hallway. If feeling well, potential discharge later today. Meds: Eliquis 5 mg BID. Rebate card provided. Toprol 50 mg BID Digoxin 0.125 mg daily. Lisinopril 40 mg daily. Furosemide 20 mg PO Daily. 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 Follow up with cardiology in 2-3 weeks. Follow up with PCP, consider evaluation for sleep apnea. (2) Heart failure with preserved ejection fraction: Volume status well compensated. Medications as outlined above. Will consider ischemic work up and assess for dyslipidemia as outpatient. (3) Obesity: Suspected [place]. Subjective Chief Complaint: follow up shortness of breath Subjective: Patient tolerated TRIXIE guided CV well this am. No in SR. Comfortable. Had breakfast and his morning post procedure. Review of Systems Review of Systems: All systems reviewed & are unremarkable except as noted in HPI & below Physical Exam Constitutional: WD/WN, vitals as above Respiratory: normal respiratory effort, lungs clear to auscultation Cardiovascular: RRR, no murmur, no edema Gastrointestinal (Abdomen): normal bowel sounds, soft, nontender, no hepatosplenomegaly Skin: no rashes, warm and dry Neurologic: moves all extremities; no focal motor deficits Results & Data Vital Signs (Past 12 Hours) Vital Signs Temp Pulse Resp BP Pulse Ox 07/06/18 08:57 36.5 C 71 18 113/75 97 07/06/18 08:27 36.5 C 97 H 18 116/82 98 07/06/18 08:14 36.4 C L 80 20 105/84 96 07/06/18 03:35 36.8 C 80 124/88 96 07/05/18 22:32 36.5 C 71 20 108/70 96 Laboratory Results Cardiac Enzymes 07/06/18 Range/Units 05:20 AST 22 (15-37) U/L CBC 07/06/18 Range/Units 05:20 WBC 9.33 (4.8-10.8) K/uL RBC 5.38 (4.7-6.1) M/uL Hgb 15.9 (14.0-18.0) g/dL Hct 47.2 (42-52) % Plt Count 291 (130-400) K/uL Neut # (Auto) 6.20 (1.4-6.5) K/uL Lymph # (Auto) 1.45 (1.2-3.4) K/uL [place] # (Auto) 1.20 H (0.11-0.59) K/uL Eos # (Auto) 0.40 (0-0.5) K/uL Baso # (Auto) 0.02 (0-0.2) K/uL Comprehensive Metabolic Panel 07/06/18 Range/Units 05:20 Sodium 136 (136-145) mmol/L Potassium 4.3 (3.5-5.1) mmol/L Chloride 103 (98-107) mmol/L Carbon Dioxide 27 (21-32) mmol/L BUN 15 (7-18) mg/dl Creatinine 1.04 (0.6-1.4) mg/dl Glucose 89 (70-99) mg/dl Calcium 8.7 (8.5-10.1) mg/dl AST 22 (15-37) U/L ALT 33 (12-78) U/L Alkaline Phosphatase 86 (45-117) U/L Total Protein 7.7 (6.4-8.2) gm/dl Albumin 3.4 (3.4-5.0) gm/dl Intake and Output 07/05/18 07/06/18 07/06/18 22:59 06:59 14:59 Intake Total 370 / 1825 400 / 1825 Output Total 1000 / 2250 1250 / 2250 Balance -630 / -425 -850 / -425 Intake: Oral 370 / 1825 400 / 1825 Output: Urine 1000 / 2250 1250 / 2250 Other: Weight 117 kg Medications Administered Current Inpatient Medications Acetaminophen (Tylenol) 650 mg PO Q4H PRN PRN Reason: Pain or Fever Stop: 08/01/18 19:33 Apixaban (Eliquis) 5 mg PO BID [facility] Stop: 08/02/18 10:14 Last Admin: 07/06/18 07:02 Dose: 5 mg Documented by: Digoxin (Lanoxin) 0.125 mg PO DAILY@1600 [facility] Stop: 08/05/18 15:59 Furosemide (Lasix) 20 mg PO QAM [facility] Stop: 08/04/18 08:59 Last Admin: 07/06/18 08:20 Dose: 20 mg Documented by: Lisinopril (Zestril) 40 mg PO DAILY [facility] Stop: 08/02/18 08:59 Last Admin: 07/06/18 08:20 Dose: 40 mg Documented by: Metoprolol Succinate (Toprol Xl) 50 mg PO BID [facility] Stop: 08/03/18 08:59 Last Admin: 07/06/18 08:20 Dose: 50 mg Documented by: Oxycodone/Acetaminophen (Percocet 5mg/325mg) 1 tab PO HS PRN PRN Reason: Pain Stop: 07/16/18 19:33
--- NOTE | 2018-07-06 12:31 | Hospitalist Progress Note ---
Date of Service July 06, 2018 Assessment & Plan (1) New onset atrial fibrillation: Atrial Fibrillation with Rapid Ventricular Response (on admission) s/p cardioversion on 07/06/18 -In the ED on 07/02/18 patient was found to be in A. fib with RVR with heart rates in the 140s to 150s; Received 40 mg IV Lasix in the ED, patient was admitted to telemetry [place] and started on diltiazem drip and heparin drip -heart rate better controlled by night time of 07/02/18 -07/03/18: the diltiazem drip was discontinued and transitioned metoprolol tartrate 25 mg PO every 6 hours; transitioned from heparin drip to Eliquis. -07/04/18: Metoprolol tartrate 25 mg p.o. every 6 has been transitioned to metoprolol succinate 50 mg twice daily; cardiology also ordered digoxin as daily -07/05/18:continue metoprolol and digoxin Given ongoing rapid ventricular response with minimal exertion despite medication, cardiology service recommend proceeding with transesophageal echocardiogram guided direct current cardioversion for 07/06/18 -07/06/18 in sinus rhythm as patient is s/p cardioversion on 07/06/18 -cardiology follow up 07/16/2018 3:00 PM Provider Wicho Ortiz PA-C Department Cardiology, [facility] (2) CHF (congestive heart failure): acute congestive heart failure with preserved ejection fraction -CXR suggest CHF and also elevated proBNP -IV Lasix on 07/01/18, patient given addition IV Lasix 20 mg in AM of 07/03/18 and 40 mg of potassium chloride by cardiology service -Resting echocardiogram with EF in the range of 50 to 54% -07/04/18 Transition to oral furosemide 20 mg daily and started digoxin as per cardiology service -cardiology service recommends pharmacologic nuclear stress test as part of ischemic work-up as outpatient Patient should be on these medications for heart health and prescriptions were sent electronically to [facility] [address] [place] [address] Eliquis 5 mg BID (Rebate card provided by cardiology service) Metoprolol Succinate 50 mg BID Digoxin 0.125 mg daily. Lisinopril 40 mg daily. Furosemide 20 mg PO Daily. Patient should stop home medications of amlodipine and atenolol and hydrochlorothiazide (3) Hypertension: Continue amlodipine, lisinopril, metoprolol HCTZ has been held since patient is now on daily Lasix Obesity with BMI 39 -cardiology service recommends screening for obstructive sleep apnea as outpatient -07/10/2018 11:10 AM Provider DO Fiona Salas [facility] (4) DVT prophylaxis: anticoagulated by anticoagulation therapy -heparin drip was switched to Eliquis by cardiology service starting 07/03/18, continue Eliquis 5 mg BID Discharge Diagnosis Atrial Fibrillation with Rapid Ventricular Response (on admission); in sinus rhythm as patient is s/p cardioversion on 07/06/18, acute congestive heart failure with preserved ejection fraction; Hypertension; Obesity with BMI 39 Discharged to home Follow up with PCP, consider evaluation for sleep apnea 07/10/2018 11:10 AM Provider DO Fiona Salas [facility] 07/16/2018 3:00 PM Provider Wicho Ortiz PA-C Department Cardiology, [facility] Patient should be on these medications for heart health and prescriptions were sent electronically to [facility] [address] [place] [address] Eliquis 5 mg BID (Rebate card provided by cardiology service) Metoprolol Succinate 50 mg BID Digoxin 0.125 mg daily. Lisinopril 40 mg daily. Furosemide 20 mg PO Daily. Patient should stop home medications of amlodipine and atenolol and hydrochlorothiazide -cardiology service recommends pharmacologic nuclear stress test as part of ischemic work-up as outpatient Subjective in sinus rhythm as patient is s/p cardioversion on 07/06/18. patient reports he is ambulating without discomfort. no shortness of breath. no palpitations. he does report of feeling like having loose tooth after the procedure. no bleeding from orifices. no chest pain. no abdomen pain. no vomiting. no lightheadedness. no dizziness. cardiology service has recommended hospital discharge and discharge plans discussed with patient Physical Exam Constitutional: WD/WN, vitals as above Eyes: PERRL, conjunctivae normal, anicteric sclerae EOM intact bilaterally ENMT: external ear and nose normal, oropharynx normal Neck: trachea midline, no thyromegaly Respiratory: normal respiratory effort, lungs clear to auscultation Cardiovascular: Rate/Rhythm: regular rate and regular rhythm Gastrointestinal (Abdomen): normal bowel sounds, soft, nontender, no hepatosplenomegaly Musculoskeletal: no cyanosis or clubbing, extremities motor strength 5/5 Head/Neck/Chest: normocephalic and head atraumatic Neurologic: PERRL, EOMI, accommodation nl, no face palsy, no dysarthria CN's II-XI intact bilaterally Psychiatric: A+Ox3, euthymic affect Results & Data Vital Signs (Past 12 Hours) Vital Signs Temp Pulse Resp BP Pulse Ox 07/06/18 11:31 70 20 131/92 99 07/06/18 08:57 36.5 C 71 18 113/75 97 07/06/18 08:27 36.5 C 97 H 18 116/82 98 07/06/18 08:14 36.4 C L 80 20 105/84 96 07/06/18 03:35 36.8 C 80 124/88 96
--- NOTE | 2018-07-06 12:40 | Discharge Summary ---
Date of Service July 06, 2018 Admission HPI Per Admitting Provider 63-year-old male who presents to the ED with shortness of breath. Patient reports his symptoms have been ongoing for the past 1 month. He was seen at his PCPs office today where he was found to be in A. fib with RVR and was sent to the ED for further evaluation. Patient reports that over the past 1 month, he has been having increasing exertional shortness of breath as well as orthopnea. He denies any shortness of breath at rest. No chest pain or palpitations. He believes as though he is gained about 5 pounds in the past few months. He denies any lower extremity edema. No lightheadedness, dizziness, diaphoresis, syncopal events. He denies abdominal pain, nausea, vomiting, diarrhea. No other recent illnesses, fevers, chills. He denies any urinary symptoms. In the ED, patient was found to be in A. fib with RVR with heart rates in the 140s to 150s. He was given diltiazem 15 mg IV with improvement in heart rate. Chest x- ray is suggesting CHF. proBNP is elevated at 1819. Patient also received IV L asix. Admission Exam Per Admitting Provider Constitutional: WD/WN, vitals as above + obese Eyes: PERRL, conjunctivae normal, anicteric sclerae ENMT: external ear and nose normal, oropharynx normal Respiratory: normal respiratory effort; no respiratory distress Auscultation: + diminished lung sounds (Bilateral bases) Cardiovascular: Rate/Rhythm: + tachycardic and + irregularly irregular Vessels: normal peripheral pulses Extremities: no edema Gastrointestinal (Abdomen): normal bowel sounds, soft, nontender, no hepatosplenomegaly Musculoskeletal: no cyanosis or clubbing, extremities motor strength 5/5 Skin: no rashes, warm and dry Neurologic: PERRL, EOMI, accommodation nl, no face palsy, no dysarthria Psychiatric: A+Ox3, euthymic affect Principal Diagnosis Atrial Fibrillation with Rapid Ventricular Response (on admission); in sinus rhythm as patient is s/p cardioversion on 07/06/18, acute congestive heart failure with preserved ejection fraction; Hypertension; Obesity with BMI 39 Discharge Exam Constitutional WD/WN, vitals as above Eyes PERRL, conjunctivae normal, anicteric sclerae EOM intact bilaterally ENMT external ear and nose normal, oropharynx normal Neck trachea midline, no thyromegaly Respiratory normal respiratory effort, lungs clear to auscultation Cardiovascular Rate/Rhythm: regular rate and regular rhythm Gastrointestinal (Abdomen) normal bowel sounds, soft, nontender, no hepatosplenomegaly Musculoskeletal no cyanosis or clubbing, extremities motor strength 07/05 Head/Neck/Chest: normocephalic and head atraumatic Neurologic PERRL, EOMI, accommodation nl, no face palsy, no dysarthria CN's II-XI intact bilaterally Psychiatric A+Ox3, euthymic affect Discharge Data Allergies Allergy/AdvReac Type Severity Reaction Status Date / Time Penicillins Allergy RASH Unverified 07/02/18 14:44 Consultations 07/02/18 16:18 ED Decision to Admit Stat 07/02/18 19:34 Consult Cardiology Routine 07/03/18 10:01 Consult Case Management - Discharge Planning Routine 07/05/18 12:22 Consult Anesthesiology Routine Procedures Performed Operation Date: 07/06/18 07:45 Actual Procedures p Cardioversion - Bob Harris DO Hospital Course (1) New onset atrial fibrillation: Atrial Fibrillation with Rapid Ventricular Response (on admission) s/p cardioversion on 07/06/18 -In the ED on 07/02/18 patient was found to be in A. fib with RVR with heart rates in the 140s to 150s; Received 40 mg IV Lasix in the ED, patient was admitted to telemetry [place] and started on diltiazem drip and heparin drip -heart rate better controlled by night time of 07/02/18 -07/03/18: the diltiazem drip was discontinued and transitioned metoprolol tartrate 25 mg PO every 6 hours; transitioned from heparin drip to Eliquis. -07/04/18: Metoprolol tartrate 25 mg p.o. every 6 has been transitioned to metoprolol succinate 50 mg twice daily; cardiology also ordered digoxin as daily -07/05/18:continue metoprolol and digoxin Given ongoing rapid ventricular response with minimal exertion despite medication, cardiology service recommend proceeding with transesophageal echocardiogram guided direct current cardioversion for 07/06/18 -07/06/18 in sinus rhythm as patient is s/p cardioversion on 07/06/18 -cardiology follow up 07/16/2018 3:00 PM Provider Wicho Ortiz PA-C Department Cardiology, [facility] (2) CHF (congestive heart failure): acute congestive heart failure with preserved ejection fraction -CXR suggest CHF and also elevated proBNP -IV Lasix on 07/01/18, patient given addition IV Lasix 20 mg in AM of 07/03/18 and 40 mg of potassium chloride by cardiology service -Resting echocardiogram with EF in the range of 50 to 54% -07/04/18 Transition to oral furosemide 20 mg daily and started digoxin as per cardiology service -cardiology service recommends pharmacologic nuclear stress test as part of ischemic work-up as outpatient Patient should be on these medications for heart health and prescriptions were sent electronically to [facility] [address] [place] [address] Eliquis 5 mg BID (Rebate card provided by cardiology service) Metoprolol Succinate 50 mg BID Digoxin 0.125 mg daily. Lisinopril 40 mg daily. Furosemide 20 mg PO Daily. Patient should stop home medications of amlodipine and atenolol and hydrochlorothiazide (3) Hypertension: Continue amlodipine, lisinopril, metoprolol HCTZ has been held since patient is now on daily Lasix Obesity with BMI 39 -cardiology service recommends screening for obstructive sleep apnea as outpatient -07/10/2018 11:10 AM Provider DO Fiona Salas [facility] (4) DVT prophylaxis: anticoagulated by anticoagulation therapy -heparin drip was switched to Eliquis by cardiology service starting 07/03/18, continue Eliquis 5 mg BID Discharge Diagnosis Atrial Fibrillation with Rapid Ventricular Response (on admission); in sinus rhythm as patient is s/p cardioversion on 07/06/18, acute congestive heart failure with preserved ejection fraction; Hypertension; Obesity with BMI 39 Discharged to home Follow up with PCP, consider evaluation for sleep apnea 07/10/2018 11:10 AM Provider DO Fiona Salas [facility] 07/16/2018 3:00 PM Provider Wicho Ortiz PA-C Department Cardiology, [facility] Patient should be on these medications for heart health and prescriptions were sent electronically to [facility] [address] [place] [address] Eliquis 5 mg BID (Rebate card provided by cardiology service) Metoprolol Succinate 50 mg BID Digoxin 0.125 mg daily. Lisinopril 40 mg daily. Furosemide 20 mg PO Daily. Patient should stop home medications of amlodipine and atenolol and h ydrochlorothiazide -cardiology service recommends pharmacologic nuclear stress test as part of ischemic work-up as outpatient Total Time Total Time Spent Total Time Spent (In Minutes): 40 minutes Total Time Includes: Examination of the Patient, Discharge Planning, Medication Reconciliation and Communication With Other Providers Discharge Plan Discharge Items Patient Disposition: Home - Self-Care Reason For Visit: NEW ONSET AFIB Discharge Diagnosis: Atrial Fibrillation with Rapid Ventricular Response (on admission); in sinus rhythm as patient is s/p cardioversion on 07/06/18, acute c ongestive heart failure with preserved ejection fraction; Hypertension; Obesity with BMI 39 Condition: Good Discharge Goals: Improve disease control Activity: Resume your previous activity Non-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: 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 Call non-emergency contact if: you have any medication questions Follow-up/Referrals: Shahzad Huang DO [Primary Care Provider] - Diet: Heart Healthy Addtl Provider Instructions: Discharged to home Follow up with PCP, consider evaluation for sleep apnea 07/10/2018 11:10 AM Provider Shahzad Huang DO Department [facility] 07/16/2018 3:00 PM Provider Wicho Ortiz PA-C Department Cardiology, [facility] Patient should be on these medications for heart health and prescriptions were sent electronically to [facility] [address] [place] [address] Eliquis 5 mg BID (Rebate card provided by cardiology service) Metoprolol Succinate 50 mg BID Digoxin 0.125 mg daily. Lisinopril 40 mg daily. Furosemide 20 mg PO Daily. Patient should stop home medications of amlodipine and atenolol and hydrochlorothiazide -cardiology service recommends pharmacologic nuclear stress test as part of ischemic work-up as outpatient Prescriptions: New furosemide 20 mg Tablet 20 mg PO QAM 30 Days Qty: 30 RF: 0 Eliquis 5 mg Tablet 5 mg PO BID 30 Days Qty: 60 RF: 0 metoprolol succinate 50 mg Tablet Extended Release 24 Hr 50 mg PO BID 30 Days Qty: 60 RF: 0 digoxin 125 mcg Tablet 125 mcg PO DAILY@1600 30 Days Qty: 30 RF: 0 lisinopril [Zestril] 40 mg Tablet 40 mg PO DAILY 30 Days Qty: 30 RF: 0 Continued oxycodone-acetaminophen 5-325 mg tablet 1 tab PO HS PRN (Reason: Pain) RF: 0 baclofen 10 mg tablet 10 mg PO BID PRN (Reason: Pain) RF: 0 Discontinued atenolol 100 mg tablet 100 mg PO DAILY RF: 0 amlodipine 5 mg tablet 5 mg PO DAILY RF: 0 hydrochlorothiazide 25 mg tablet 25 mg PO DAILY RF: 0 lisinopril 40 mg tablet 40 mg PO DAILY RF: 0 Stand-Alone Forms: [facility] Discharge Orders: Discharge Order (Routine); Ordered 07/06/18 Ordered By: Bj Carpio Admission Data Admit Date/Time: 07/02/18 16:51 Attending Provider: Bj Carpio Admit Provider: Mega Maciel Primary Care Provider: Shahzad Huang Other Providers: Mega Maciel ; Bob Harris ; Krystyna Erazo V Service: Telemetry
[2018-07-06] MEDS ORDERED: DIGOXIN 0.125 MG TAB PO SCH (16:00)
== END 2018-07-06 16:38 | disposition home or self-care (01) | DRG 308 ==
LOC: ED 13:28 → 2S 16:51

== ENCOUNTER 2021-06-19 04:10 | Observation (INO) ==
[2021-06-19] MEDS ORDERED: ONDANSETRON INJ 2 MG/ML 2 ML VIAL IV STA ×2 (04:27→07:54)
[2021-06-19] MEDS ORDERED: ACETAMINOPHEN 1,000 MG/100 ML VIAL IV STA (04:27)
[2021-06-19] MEDS ORDERED: SODIUM CHLORIDE 0.9% 500 ML IV STA (04:27)
[2021-06-19] MEDS ORDERED: FAMOTIDINE 20MG IV PUSH 20 MG/5 ML SYR IV STA (04:30)
--- NOTE | 2021-06-19 04:30 | Emergency Department Note ---
History of Present Illness General Chief complaint: Abdominal Pain Stated complaint: SEVERE ABDOMINAL PAIN,NAUSEA,LIGHTHEADED Time Seen by Provider: 06/19/21 04:16 History of Present Illness Maximum Pain Intensity: 10 This 65-year-old male patient presents to the emergency department today for evaluation of generalized abdominal pain, nausea, vomiting, and constipation which began about 8 hours prior to arrival. The patient states he ate ham pot pie then apple pie this evening. Shortly after this, he developed some nausea and vomiting with epigastric abdominal pain which radiates diffusely. Patient rates his pain 10/10. He took "a nausea pill" prior to arrival with minimal rel ief. He states he has had several episodes of vomiting. He denies any blood in his emesis. He felt chills, but denies any fever. He states his had the same thing to eat that he had, and she has not had any of the same symptoms. The patient denies history of similar symptoms. He is having difficulty finding a comfortable position. He denies any chest pain or shortness of breath. He has not vomited blood. Home Medications Medication Instructions Recorded Confirmed Type baclofen 10 mg tablet 10 mg PO BID 07/02/18 06/19/21 History metoprolol succinate 100 mg 100 mg PO QAM 08/10/18 06/19/21 History tablet,extended release 24 hr cholecalciferol (vitamin D3) 25 1,000 unit PO HS 08/13/18 06/19/21 History mcg (1,000 unit) capsule (Vitamin D3) albuterol sulfate 90 mcg/actuation 2 puff INHALATION Q4H PRN 06/19/21 06/19/21 History aerosol inhaler aspirin 81 mg chewable tablet 162 mg PO DAILY 06/19/21 06/19/21 History (Aspirin Childrens) evolocumab 420 mg/3.5 mL 420 mg SUBCUT MONTHLY 06/19/21 06/19/21 History subcutaneous wearable injector (Repatha Pushtronex) ezetimibe 10 mg tablet 10 mg PO QAM 06/19/21 06/19/21 History fluticasone propionate 50 2 spray INTRANASAL QAM 06/19/21 06/19/21 History mcg/actuation nasal spray,suspension furosemide 40 mg tablet 80 mg PO BID 06/19/21 06/19/21 History lisinopril 40 mg tablet 40 mg PO QAM 06/19/21 06/19/21 History metformin 500 mg tablet,extended 1,500 mg PO QAM 06/19/21 06/19/21 History release 24 hr metoprolol succinate 25 mg 25 mg PO QAM 06/19/21 06/19/21 History tablet,extended release 24 hr nitroglycerin 0.4 mg sublingual 0.4 mg SUBLINGUAL UD 06/19/21 06/19/21 History tablet (Nitrostat) omega 5-mxz-[id number]-fish oil 1,000 mg 1 cap PO DAILY 06/19/21 06/19/21 History (120 mg-180 mg) capsule (Fish Oil) omeprazole 40 mg capsule,delayed 40 mg PO DAILY 06/19/21 06/19/21 History release ondansetron HCl 4 mg tablet 4 mg PO Q6H PRN 06/19/21 06/19/21 History rosuvastatin 20 mg tablet (Crestor) 40 mg PO DAILY 06/19/21 06/19/21 History spironolactone 25 mg tablet 25 mg PO QAM 06/19/21 06/19/21 History Allergies Allergy/AdvReac Type Severity Reaction Status Date / Time Penicillins Allergy RASH Unverified 06/19/21 08:19 Past Med/Surg History Medical History (Updated 06/19/21 @ 15:15 by Rupal Pereira PA-C) Atrial fibrillation Barretts esophagus CAD (coronary artery disease) CHF (congestive heart failure) with preserved EF Dyslipidemia Heart failure with preserved ejection fraction Hypertension Obesity T2DM (type 2 diabetes mellitus) Surgical History Hx of CABG Hx of tonsillectomy S/P knee surgery Family History Mother Heart disease First [place] in her early 60s, fatal [place] at age 78 Father Stroke fatal CV[place] at age 69 Social History (Updated 06/19/21 @ 15:36 by Rupal Pereira PA-C) Smoking Status: Never smoker Hx Alcohol Use: No Hx Substance Use: No Preferred Language: Hungarian Communication Ability: Effective Student Accounts Coordinator Required: No Beliefs That Will Affect Care: None Current Living Situation: Spouse current occupational status: employed current occupation: [employer] Feels Safe at Home: Yes Safety Concerns: Feels Safe At This Time Assistive Devices: None Review of Systems A total of 10 systems reviewed and were otherwise negative Physical Exam Vital Signs Vital Signs - 24 hr 06/19/21 04:12 06/19/21 05:08 06/19/21 05:09 Temperature 36.8 C Temperature Source Temporal Artery Scan Pulse Rate 74 85 82 Pulse Rate [Right Finger] Pulse Rate from SpO2 Sensor Pulse Rhythm [Right Finger] Pulse Strength [Right Finger] Respiratory Rate 18 21 19 Respiratory Effort / Characteristics Respiratory Depth Respiratory Pattern Blood Pressure 107/70 227/85 H Blood Pressure [Right Arm] Blood Pressure Mean 82 132 Blood Pressure Mean [Right Arm] Blood Pressure Position [Right Arm] Pulse Oximetry 96 95 Oxygen Delivery Method Room Air Sepsis Recent Fever Within 48 Hours No Sepsis New/Unexplained Change in Mental Status N/A Sepsis Action Taken by Nursing No Action Required 06/19/21 05:10 06/19/21 05:12 06/19/21 05:30 Temperature Temperature Source Pulse Rate 82 83 82 Pulse Rate [Right Finger] Pulse Rate from SpO2 Sensor 61 Pulse Rhythm [Right Finger] Pulse Strength [Right Finger] Respiratory Rate 20 18 17 Respiratory Effort / Characteristics Respiratory Depth Respiratory Pattern Blood Pressure 185/94 H Blood Pressure [Right Arm] Blood Pressure Mean 124 Blood Pressure Mean [Right Arm] Blood Pressure Position [Right Arm] Pulse Oximetry 96 97 Oxygen Delivery Method Room Air Sepsis Recent Fever Within 48 Hours Sepsis New/Unexplained Change in Mental Status Sepsis Action Taken by Nursing 06/19/21 05:40 06/19/21 05:50 06/19/21 06:00 Temperature Temperature Source Pulse Rate 74 75 91 H Pulse Rate [Right Finger] Pulse Rate from SpO2 Sensor 75 77 84 Pulse Rhythm [Right Finger] Pulse Strength [Right Finger] Respiratory Rate 19 19 20 Respiratory Effort / Characteristics Respiratory Depth Respiratory Pattern Blood Pressure Blood Pressure [Right Arm] Blood Pressure Mean Blood Pressure Mean [Right Arm] Blood Pressure Position [Right Arm] Pulse Oximetry 96 96 97 Oxygen Delivery Method Sepsis Recent Fever Within 48 Hours Sepsis New/Unexplained Change in Mental Status Sepsis Action Taken by Nursing 06/19/21 06:10 06/19/21 06:20 06/19/21 06:30 Temperature Temperature Source Pulse Rate 81 94 H 84 Pulse Rate [Right Finger] Pulse Rate from SpO2 Sensor 81 83 72 Pulse Rhythm [Right Finger] Pulse Strength [Right Finger] Respiratory Rate 20 12 22 Respiratory Effort / Characteristics Respiratory Depth Respiratory Pattern Blood Pressure Blood Pressure [Right Arm] Blood Pressure Mean Blood Pressure Mean [Right Arm] Blood Pressure Position [Right Arm] Pulse Oximetry 96 95 97 Oxygen Delivery Method Sepsis Recent Fever Within 48 Hours Sepsis New/Unexplained Change in Mental Status Sepsis Action Taken by Nursing 06/19/21 06:40 06/19/21 07:06 06/19/21 07:07 Temperature Temperature Source Pulse Rate 83 91 H 86 Pulse Rate [Right Finger] Pulse Rate from SpO2 Sensor 77 85 Pulse Rhythm [Right Finger] Pulse Strength [Right Finger] Respiratory Rate 22 20 22 Respiratory Effort / Characteristics Respiratory Depth Respiratory Pattern Blood Pressure 202/104 H 202/104 H Blood Pressure [Right Arm] Blood Pressure Mean 136 136 Blood Pressure Mean [Right Arm] Blood Pressure Position [Right Arm] Pulse Oximetry 94 98 Oxygen Delivery Method Sepsis Recent Fever Within 48 Hours Sepsis New/Unexplained Change in Mental Status Sepsis Action Taken by Nursing 06/19/21 07:27 06/19/21 07:29 06/19/21 09:03 Temperature Temperature Source Pulse Rate 88 Pulse Rate [Right Finger] Pulse Rate from SpO2 Sensor 88 76 Pulse Rhythm [Right Finger] Pulse Strength [Right Finger] Respiratory Rate 24 Respiratory Effort / Characteristics Respiratory Depth Respiratory Pattern Blood Pressure 190/127 H Blood Pressure [Right Arm] Blood Pressure Mean 148 Blood Pressure Mean [Right Arm] Blood Pressure Position [Right Arm] Pulse Oximetry 96 92 Oxygen Delivery Method Sepsis Recent Fever Within 48 Hours Sepsis New/Unexplained Change in Mental Status Sepsis Action Taken by Nursing 06/19/21 09:16 06/19/21 09:30 06/19/21 10:00 Temperature Temperature Source Pulse Rate 101 H 93 H 92 H Pulse Rate [Right Finger] Pulse Rate from SpO2 Sensor 103 H 94 H Pulse Rhythm [Right Finger] Pulse Strength [Right Finger] Respiratory Rate 25 H 29 H 17 Respiratory Effort / Characteristics Respiratory Depth Respiratory Pattern Blood Pressure 198/111 H 205/118 H Blood Pressure [Right Arm] Blood Pressure Mean 140 147 Blood Pressure Mean [Right Arm] Blood Pressure Position [Right Arm] Pulse Oximetry 96 97 Oxygen Delivery Method Sepsis Recent Fever Within 48 Hours Sepsis New/Unexplained Change in Mental Status Sepsis Action Taken by Nursing 06/19/21 10:01 06/19/21 10:17 06/19/21 10:38 Temperature 36.8 C Temperature Source Oral Pulse Rate 88 89 Pulse Rate [Right Finger] 88 Pulse Rate from SpO2 Sensor 84 Pulse Rhythm [Right Finger] Regular Pulse Strength [Right Finger] Normal Respiratory Rate 25 H 24 20 Respiratory Effort / Characteristics Non-Labored Spontaneous Respiratory Depth Normal Respiratory Pattern Regular Blood Pressure 181/100 H 149/84 H Blood Pressure [Right Arm] 190/114 H Blood Pressure Mean 127 105 Blood Pressure Mean [Right Arm] 139 Blood Pressure Position [Right Arm] Semi-fowlers Pulse Oximetry 97 97 Oxygen Delivery Method Room Air Sepsis Recent Fever Within 48 Hours Sepsis New/Unexplained Change in Mental Status Sepsis Action Taken by Nursing VITALS: Vitals are noted on the nurse's note and reviewed by myself. Pt. is hypertensive. GENERAL: This is a 65-year-old obese white male, in no acute distress, nondiaphoretic, well-developed well-nourished. SKIN: The skin was without rashes, erythema, edema, or bruising. There is no tenting of the skin. Capillary refill less than 2 seconds. HEAD: Normocephalic atraumatic. EYES: Conjunctivae without injection, sclerae without icterus. NECK: Supple without nuchal rigidity. No lymphadenopathy. No JVD. HEART: Regular rate and rhythm without murmurs gallops or rubs. LUNGS: Clear to auscultation bilaterally without wheezes, rales or rhonchi. No retractions or accessory muscle use. ABDOMEN: Positive bowel sounds x 4. Epigastric and upper abdominal tenderness palpation. Abdomen was otherwise soft, without masses or organomegaly. No guarding or rebound tenderness. MUSCULOSKELETAL: No muscle atrophy, erythema, or edema noted. Full range of motion without joint tenderness in all extremities. No tenderness to palpation. Normal gait. Strength 5/5 throughout. NEURO: Patient was alert and oriented to person place and time. No focal neur ological deficits. Course Course The patient was seen and evaluated as above. An order was placed for continuous cardiac monitoring. The monitor shows a normal sinus rhythm at a rate of 83 bpm. IV access obtained, labs drawn. Patient was medicated with IV fluids, Zofran, acetaminophen, Pepcid. Labs reviewed by myself. I discussed the findings with the patient at bedside. He was reassessed. He is feeling much better. CT imaging performed. The case was signed out to Hannah Dasilva PA-C pending CT read. Please see her d ictation regarding final disposition and plan. Administered Medications Baclofen (Baclofen 10 Mg Tab) 10 mg PO BID MEREDITH Stop: 07/19/21 20:59 Last Admin: 06/19/21 19:50 Dose: 10 mg Documented by: [id number] Lactated Ringer's (Lr) 1,000 mls @ 80 mls/hr IV .[id number] MEREDITH Stop: 07/19/21 14:44 Last Admin: 06/19/21 14:57 Dose: Not Given Documented by: [id number] Insulin Aspart (Insulin Aspart Per Unit) 0 units SC ACHS MEREDITH Stop: 07/19/21 16:29 Last Admin: 06/19/21 20:39 Dose: 1 units Documented by: [id number] Cosigned by: [id number] Admin: 06/19/21 17:47 Dose: 1 units Documented by: [id number] Cosigned by: [id number] Menthol (Cough Drop (Sugar Free) Anabelle 24 Anabelle/1 Box) 1 anabelle BUCCAL PRN PRN PRN Reason: Sore Throat Stop: 07/19/21 19:37 Last Admin: 06/19/21 19:49 Dose: 1 anabelle Documented by: [id number] Oxycodone HCl (Oxycodone Hcl Ir 5 Mg Tab (Immediate Release)) 10 mg PO Q4H PRN PRN Reason: SEVERE Pain (7,8,9,10) Stop: 07/03/21 14:14 Last Admin: 06/19/21 19:49 Dose: 10 mg Documented by: [id number] Discontinued Medications Bupivacaine HCl/Epinephrine Bitart (Bupivacaine/Epinephrine 0.25% 1:200,000 30 Ml Vial) Confirm Administered Dose 30 ml .ROUTE .STK-MED ONE Stop: 06/19/21 11:17 Last Admin: 06/19/21 12:46 Dose: 30 ml Documented by: [id number] Sodium Chloride (Nss) 500 mls @ 999 mls/hr IV .Q31M STA Stop: 06/19/21 04:57 Last Infusion: 06/19/21 06:15 Dose: 0 mls/hr Documented by: [id number] Admin: 06/19/21 05:03 Dose: 999 mls/hr Documented by: [id number] Acetaminophen (Ofirmev) 1,000 mg in 100 mls @ 400 mls/hr IV NOW STA Stop: 06/19/21 04:41 Last Infusion: 06/19/21 05:14 Dose: 0 mls/hr Documented by: [id number] Admin: 06/19/21 04:55 Dose: 400 mls/hr Documented by: [id number] Famotidine (Pepcid 20mg Iv Push) 20 mg in 5 mls @ 2.5 mls/min IV NOW STA Stop: 06/19/21 04:31 Last Admin: 06/19/21 04:55 Dose: 2.5 mls/min Documented by: [id number] Cefepime HCl (Maxipime) 2,000 mg in 20 mls @ 5 mls/min IV NOW STA; Protocol Stop: 06/19/21 08:44 Last Admin: 06/19/21 09:03 Dose: 5 mls/min Documented by: [id number] Ioversol (Optiray 320 100ml) 100 ml IV ONCE ONE Stop: 06/19/21 07:01 Last Admin: 06/19/21 07:00 Dose: 93 ml Documented by: [id number] Labetalol HCl (Labetalol Hcl Iv 5 Mg/Ml 20ml) 10 mg IV NOW STA Stop: 06/19/21 10:03 Last Admin: 06/19/21 10:26 Dose: Not Given Documented by: [id number] Lisinopril (Lisinopril 40 Mg Tab) 40 mg PO NOW STA Stop: 06/19/21 07:55 Last Admin: 06/19/21 09:04 Dose: 40 mg Documented by: [id number] Menthol (Cough Drop (Sugar Free) Anabelle 24 Anabelle/1 Box) Confirm Administered Dose 24 anabelle BUCCAL .STK-MED ONE Stop: 06/19/21 19:45 Last Admin: 06/19/21 19:49 Dose: Not Given Documented by: [id number] Metoprolol Succinate (Metoprolol Succ 50mg Ext Rel Tab) 100 mg PO NOW STA Stop: 06/19/21 07:55 Last Admin: 06/19/21 09:03 Dose: 100 mg Documented by: [id number] Metoprolol Succinate (Metoprolol Succ 25mg Ext Rel Tab) 25 mg PO NOW STA Stop: 06/19/21 07:55 Last Admin: 06/19/21 09:03 Dose: 25 mg Documented by: [id number] Miscellaneous ( Floseal Hemostatic Matrix 10ml) 10 ml TOP ONCE ONE Stop: 06/19/21 12:29 Last Admin: 06/19/21 12:46 Dose: 10 ml Documented by: [id number] Morphine Sulfate (Morphine Sulfate 4 Mg/Ml 1 Ml Carp\\Vial) 4 mg IV NOW STA Stop: 06/19/21 07:55 Last Admin: 06/19/21 09:05 Dose: 4 mg Documented by: [id number] Ondansetron HCl (Ondansetron Inj 2 Mg/Ml 2 Ml Vial) 4 mg IV NOW STA Stop: 06/19/21 04:28 Last Admin: 06/19/21 04:55 Dose: 4 mg Documented by: [id number] Ondansetron HCl (Ondansetron Inj 2 Mg/Ml 2 Ml Vial) 4 mg IV NOW STA Stop: 06/19/21 07:55 Last Admin: 06/19/21 09:04 Dose: 4 mg Documented by: [id number] Medical Decision Making Differential Diagnosis Etiologies such as appendicitis, diverticulitis, obstruction, inflammatory bowel disease, renal colic, PUD, biliary pathology, pancreatitis, mesenteric ischemia, aortic pathology, infections, genitourinary, UTI, perforated viscus, as well as others were entertained. Medical Records Attestation: I reviewed the patient's medical records. Home Medications Current Medication List: was personally reviewed by me Laboratory Data Leukocytosis of 17,000. No anemia or thrombocytopenia. Renal, hepatic function, and electrolytes without significant abnormality. Lipase 23. Troponin x1 negative. BNP 89. Result diagrams: 06/19/21 05:36 06/19/21 05:38 Lab Results 06/19/21 06/19/21 06/19/21 Range/Units 04:50 04:50 04:50 WBC Cancelled RBC Cancelled Hgb Cancelled Hct Cancelled MCV Cancelled MCH Cancelled MCHC Cancelled RDW Std Deviation Cancelled RDW Coeff of Abran Cancelled Plt Count Cancelled MPV Cancelled Immature Gran % (Auto) Cancelled Neut % (Auto) Cancelled Lymph % (Auto) Cancelled Nash % (Auto) Cancelled Eos % (Auto) Cancelled Baso % (Auto) Cancelled Neut # (Auto) Cancelled Lymph # (Auto) Cancelled Nash # (Auto) Cancelled Eos # (Auto) Cancelled Baso # (Auto) Cancelled Immature Gran # (Auto) Cancelled Absolute Nucleated RBC Cancelled Nucleated RBC % (auto) Cancelled Neutrophils % (Manual) Cancelled Band Neutrophils % Cancelled Lymphocytes % (Manual) Cancelled Prolymphocyte % Cancelled Reactive Lymphs % (Man) Cancelled Monocytes % (Manual) Cancelled Eosinophils % (Manual) Cancelled Basophils % (Manual) Cancelled Metamyelocytes % (Man) Cancelled Myelocytes % (Man) Cancelled Promyelocytes % (Man) Cancelled Blast Cells % (Manual) Cancelled Plasma Cell % (Manual) Cancelled Other Cells % Cancelled Nucleated RBC % Cancelled Neutrophils # (Manual) Cancelled Band Neutrophils # Cancelled Total Absolute Neuts Cancelled Lymphocytes # (Manual) Cancelled Prolymphocyte # Cancelled Reactive Lymphs # Cancelled Total Abs Lymphocytes Cancelled Monocytes # (Manual) Cancelled Eosinophils # (Manual) Cancelled Basophils # (Manual) Cancelled Metamyelocytes # (Man) Cancelled Myelocytes # (Manual) Cancelled Promyelocytes # (Man) Cancelled Blast Cells # (Man) Cancelled Plasma Cell # (Manual) Cancelled Other Cells # Cancelled Nucleated RBCs # (Man) Cancelled Hypersegmented Neuts Cancelled Hyposegmented Neuts Cancelled Hypogranular Neuts Cancelled Large Granular Lymphs Cancelled # Lrg Granular Lymphs Cancelled Hairy Cells Cancelled Smudge Cells Cancelled Toxic Granulation Cancelled Toxic Vacuolation Cancelled Dohle Bodies Cancelled Lopez Rods Cancelled Platelet Estimate Cancelled Hypogranular Platelets Cancelled Clumped Platelets Cancelled Giant Platelets Cancelled Platelet Satelliting Cancelled RBC Morphology Cancelled Polychromasia Cancelled Hypochromasia Cancelled Poikilocytosis Cancelled Basophilic Stippling Cancelled Anisocytosis Cancelled Microcytosis Cancelled Macrocytosis Cancelled Spherocytes Cancelled Pappenheimer Bodies Cancelled Sickle Cells Cancelled Target Cells Cancelled Tear Drop Cells Cancelled Ovalocytes Cancelled Stomatocytes Cancelled [place] Bodies Cancelled Echinocytes Cancelled Acanthocytes (Spur) Cancelled Rouleaux Cancelled RBC Agglutinates Cancelled Schistocytes Cancelled RBC Morph Comment Cancelled Sezary Cell Cancelled Sodium Cancelled Potassium Cancelled Chloride Cancelled Carbon Dioxide Cancelled Anion Gap Cancelled BUN Cancelled Creatinine Cancelled Est Cr Clr Drug Dosing Cancelled Est GFR ( Amer) Cancelled Est GFR (Non-Af Amer) Cancelled BUN/Creatinine Ratio Cancelled Glucose Cancelled Calcium Cancelled Total Bilirubin Cancelled AST Cancelled ALT Cancelled Alkaline Phosphatase Cancelled Troponin I High Sens 11.0 (0-20) pg/ml B-Natriuretic Peptide (0-100) pg/ml Total Protein Cancelled Albumin Cancelled Globulin Cancelled Albumin/Globulin Ratio Cancelled Lipase 23 (11-82) U/L Urine Color Urine Appearance (Clear) Urine pH (4.5-7.5) Ur Specific [place] (1.000-1.030) Urine Protein (Negative) Urine Glucose (UA) (Negative) Urine Ketones (Negative) Urine Blood (Negative) Urine Nitrite (Negative) Urine Bilirubin (Negative) Urine Urobilinogen (Negative) Ur Leukocyte Esterase (Negative) Urine WBC (Auto) (0-5) /hpf Urine RBC (Auto) (0-4) /hpf U Hyaline Cast (Auto) (0-5) /lpf U Epithel Cells (Auto) (0-5) /lpf Urine Bacteria (Auto) (Negative) SARS-CoV-2, RNA, NAAT (NEGATIVE) 06/19/21 06/19/21 06/19/21 Range/Units 05:28 05:36 05:36 WBC 17.52 H RBC 5.12 Hgb 15.0 Hct 45.4 MCV 88.7 MCH 29.3 MCHC 33.0 RDW Std Deviation 44.9 RDW Coeff of Abran 13.8 Plt Count MPV Not Reportable Immature Gran % (Auto) 0.3 Neut % (Auto) 87.1 Lymph % (Auto) 4.5 Nash % (Auto) 7.9 Eos % (Auto) 0.1 Baso % (Auto) 0.1 Neut # (Auto) 15.24 H Lymph # (Auto) 0.79 L Nash # (Auto) 1.39 H Eos # (Auto) 0.02 Baso # (Auto) 0.02 Immature Gran # (Auto) 0.06 H Absolute Nucleated RBC Nucleated RBC % (auto) Neutrophils % (Manual) Band Neutrophils % Lymphocytes % (Manual) Prolymphocyte % Reactive Lymphs % (Man) Monocytes % (Manual) Eosinophils % (Manual) Basophils % (Manual) Metamyelocytes % (Man) Myelocytes % (Man) Promyelocytes % (Man) Blast Cells % (Manual) Plasma Cell % (Manual) Other Cells % Nucleated RBC % Neutrophils # (Manual) Band Neutrophils # Total Absolute Neuts Lymphocytes # (Manual) Prolymphocyte # Reactive Lymphs # Total Abs Lymphocytes Monocytes # (Manual) Eosinophils # (Manual) Basophils # (Manual) Metamyelocytes # (Man) Myelocytes # (Manual) Promyelocytes # (Man) Blast Cells # (Man) Plasma Cell # (Manual) Other Cells # Nucleated RBCs # (Man) Hypersegmented Neuts Hyposegmented Neuts Hypogranular Neuts Large Granular Lymphs # Lrg Granular Lymphs Hairy Cells Smudge Cells Toxic Granulation Toxic Vacuolation Dohle Bodies Lopez Rods Platelet Estimate Hypogranular Platelets Clumped Platelets Giant Platelets Platelet Satelliting RBC Morphology Unremarkable Polychromasia Hypochromasia Poikilocytosis Basophilic Stippling Anisocytosis Microcytosis Macrocytosis Spherocytes Pappenheimer Bodies Sickle Cells Target Cells Tear Drop Cells Ovalocytes Stomatocytes [place] Bodies Echinocytes Acanthocytes (Spur) Rouleaux RBC Agglutinates Schistocytes RBC Morph Comment Sezary Cell Sodium Potassium Chloride Carbon Dioxide Anion Gap BUN Creatinine Est Cr Clr Drug Dosing Est GFR ( Amer) Est GFR (Non-Af Amer) BUN/Creatinine Ratio Glucose Calcium Total Bilirubin AST ALT Alkaline Phosphatase Troponin I High Sens (0-20) pg/ml B-Natriuretic Peptide 89 (0-100) pg/ml Total Protein Albumin Globulin Albumin/Globulin Ratio Lipase (11-82) U/L Urine Color Yellow Urine Appearance Clear (Clear) Urine pH 8.5 H (4.5-7.5) Ur Specific [place] 1.020 (1.000-1.030) Urine Protein 1+ H (Negative) Urine Glucose (UA) 1+ H (Negative) Urine Ketones Trace H (Negative) Urine Blood Negative (Negative) Urine Nitrite Negative (Negative) Urine Bilirubin Negative (Negative) Urine Urobilinogen Negative (Negative) Ur Leukocyte Esterase Negative (Negative) Urine WBC (Auto) 1-5 (0-5) /hpf Urine RBC (Auto) 0-4 (0-4) /hpf U Hyaline Cast (Auto) 1-5 (0-5) /lpf U Epithel Cells (Auto) 10-20 H (0-5) /lpf Urine Bacteria (Auto) Negative (Negative) SARS-CoV-2, RNA, NAAT (NEGATIVE) 06/19/21 06/19/21 Range/Units 05:38 09:22 WBC RBC Hgb Hct MCV MCH MCHC RDW Std Deviation RDW Coeff of Abran Plt Count MPV Immature Gran % (Auto) Neut % (Auto) Lymph % (Auto) Nash % (Auto) Eos % (Auto) Baso % (Auto) Neut # (Auto) Lymph # (Auto) Nash # (Auto) Eos # (Auto) Baso # (Auto) Immature Gran # (Auto) Absolute Nucleated RBC Nucleated RBC % (auto) Neutrophils % (Manual) Band Neutrophils % Lymphocytes % (Manual) Prolymphocyte % Reactive Lymphs % (Man) Monocytes % (Manual) Eosinophils % (Manual) Basophils % (Manual) Metamyelocytes % (Man) Myelocytes % (Man) Promyelocytes % (Man) Blast Cells % (Manual) Plasma Cell % (Manual) Other Cells % Nucleated RBC % Neutrophils # (Manual) Band Neutrophils # Total Absolute Neuts Lymphocytes # (Manual) Prolymphocyte # Reactive Lymphs # Total Abs Lymphocytes Monocytes # (Manual) Eosinophils # (Manual) Basophils # (Manual) Metamyelocytes # (Man) Myelocytes # (Manual) Promyelocytes # (Man) Blast Cells # (Man) Plasma Cell # (Manual) Other Cells # Nucleated RBCs # (Man) Hypersegmented Neuts Hyposegmented Neuts Hypogranular Neuts Large Granular Lymphs # Lrg Granular Lymphs Hairy Cells Smudge Cells Toxic Granulation Toxic Vacuolation Dohle Bodies Lopez Rods Platelet Estimate Hypogranular Platelets Clumped Platelets Giant Platelets Platelet Satelliting RBC Morphology Polychromasia Hypochromasia Poikilocytosis Basophilic Stippling Anisocytosis Microcytosis Macrocytosis Spherocytes Pappenheimer Bodies Sickle Cells Target Cells Tear Drop Cells Ovalocytes Stomatocytes [place] Bodies Echinocytes Acanthocytes (Spur) Rouleaux RBC Agglutinates Schistocytes RBC Morph Comment Sezary Cell Sodium 132 L Potassium 3.9 Chloride 99 Carbon Dioxide 27 Anion Gap 6 BUN 11 Creatinine 0.72 Est Cr Clr Drug Dosing 138.7 Est GFR ( Amer) 115.1 Est GFR (Non-Af Amer) 99.3 BUN/Creatinine Ratio 15.3 Glucose 148 H Calcium 8.4 L Total Bilirubin 0.4 AST 17 ALT 14 Alkaline Phosphatase 75 Troponin I High Sens (0-20) pg/ml B-Natriuretic Peptide (0-100) pg/ml Total Protein 7.3 Albumin 4.1 Globulin 3.2 Albumin/Globulin Ratio 1.3 Lipase (11-82) U/L Urine Color Urine Appearance (Clear) Urine pH (4.5-7.5) Ur Specific [place] (1.000-1.030) Urine Protein (Negative) Urine Glucose (UA) (Negative) Urine Ketones (Negative) Urine Blood (Negative) Urine Nitrite (Negative) Urine Bilirubin (Negative) Urine Urobilinogen (Negative) Ur Leukocyte Esterase (Negative) Urine WBC (Auto) (0-5) /hpf Urine RBC (Auto) (0-4) /hpf U Hyaline Cast (Auto) (0-5) /lpf U Epithel Cells (Auto) (0-5) /lpf Urine Bacteria (Auto) (Negative) SARS-CoV-2, RNA, NAAT NEGATIVE (NEGATIVE) Imaging Data Radiologist's Impression: Abdomen/Pelvis CT 06/19/21 04:27 CT abd pelvis oral and IV con CLINICAL HISTORY: generalized abdominal pain, epigastric pain TECHNIQUE: Helical axial images of the abdomen and pelvis were obtained and displayed. Automated dose lowering techniques and/or adjustment according to patient size were utilized for this exam. This exam was performed with intravenous contrast. CT DOSE: 3891.84 mGy.cm COMPARISON: None available at the time of this dictation. FINDINGS: Lower chest: Prominent pleural fat is noted. Liver: Unremarkable. No focal lesions are seen. Gallbladder and biliary tree: The gallbladder is distended. Is wall appears minimally thickened measuring 3 to 5 mm. A few gallstones are noted in the dependent portion of the gallbladder. No intra- or extrahepatic biliary ductal dilation. Pancreas: Unremarkable, no focal lesions. Spleen: Splenule is incidentally noted. Adrenals: Unremarkable. Kidneys and ureters: Multiple cysts are seen measuring up to 12 mm in diameter on the left. Bladder: Limited evaluation due to underdistention. Reproductive organs: Prostatic calcifications are seen which may represent prior hemorrhage or granulomatous disease. Bowel: Diverticulosis is seen without evidence of diverticulitis. Lymph nodes Retroperitoneal: Unremarkable. Mesenteric: Unremarkable. Pelvic: Unremarkable. Peritoneum: Normal. Vessels: Atherosclerotic calcifications are seen. Abdominal wall: A fat-containing umbilical hernia is seen. Bones: Degenerative changes in the visualized spine. IMPRESSION: Distention and likely wall thickening in the gallbladder concerning for acute cholecystitis. A dependent gallstone is seen. If there is clinical uncertainty, lateral quadrant ultrasound or nuclear medicine HIDA scan can be performed. ACT 112: Negative or not required by law. Electronically signed by: Smith Todd M.D. 06/19/2021 7:34 AM Gallbladder Ultrasound 06/19/21 07:45 US gallbladder CLINICAL HISTORY: EPIGASTRIC PAIN, POSSIBLE MARILY, ABNORMAL CT TECHNIQUE: Multiple real-time sonographic images of the right upper quadrant were obtained. Comparison: Comparison is made to CT abdomen pelvis 06/19/2021 FINDINGS: The liver is diffusely homogenous with normal contour and echogenicity. No focal mass lesions are seen. No intrahepatic ductal dilatation is seen. Low level internal echoes are identified layering dependently within the gallbladder, which is consistent with gallbladder sludge. The gallbladder wall is mildly thickened measuring approximately 3 mm. There is no pericholecystic fluid present. A sonographic Whitlock's sign was elicited by the country printer. The common duct measures 0.5 cm in diameter at the level of the hepatic artery. The visualized portions of the pancreas appear normal. The right kidney shows normal echogenicity, cortical thickness and renal contou r. The right kidney shows no evidence of hydronephrosis or mass. No ascites or free fluid is seen in Willingham's pouch. IMPRESSION: Positive Whitlock's sign and gallbladder sludge, stones, and wall thickening compatible with acute cholecystitis. ACT 112: Negative or not required by law. Electronically signed by: Smith Todd M.D. 06/19/2021 8:54 AM Blood Pressure Blood Pressure Findings: Elevated blood pressure MDM Narrative This 65-year-old male patient presents to the emergency department today for evaluation of epigastric abdominal pain. This came on suddenly shortly after dinner. The patient ate [employer]. He is complaining of severe abdominal cramping on arrival. He has not had further vomiting. He was medicated with IV fluids, acetaminophen, pepcid, Zofran. He did well with these medications and on re-evaluation, is tolerating PO contrast without difficulty and notes his pain has significantly improved. He was assisted to the bathroom. Labs reviewed as above. CT abd/pelvis is pending at shift change. Pt. will be signed out to Hannah Dasilva PA-C pending CT imaging. Please see her dictation regarding final disposition and plan of this patient. The chart was completed utilizing [employer] Speech voice recognition software. Grammatical errors, random word insertions, pronoun errors, and incomplete sentences are an occasional consequence of this system due to software limitations, ambient noise, and hardware issues. Any formal questions or concerns about the content, text, or information contained within the body of this dictation should be directly addressed to the provider for clarification. Impression & Plan Acute cholecystitis Discharge Plan Visit Data Chief Complaint: Abdominal Pain Stated Complaint: SEVERE ABDOMINAL PAIN,NAUSEA,LIGHTHEADED ED Provider: Candelario Gamez ED Midlevel Provider: Jeffry Dasilva Discharge Problem: Acute cholecystitis Patient Disposition: Admitted As Inpatient Discharge Instructions Interventions: ED Discharge Assessment Last Done: 06/19/21 10:28
[2021-06-19 06:14] LABS: Albumin Globulin Ratio 1.3 (0.9-2); Albumin Level 4.1 gm/dl (3.4-5.0); BUN Creatinine Ratio 15.3 (10-20); Bilirubin,Total 0.4 mg/dl (0.2-1.0); Calcium 8.4 mg/dl (8.5-10.1); Creatinine Clr Calc Pharmacy 138.7 ml/min; Est GFR (African American) 115.1 ml/min; Est GFR (Non-African American) 99.3 ml/min; Globulin 3.2 gm/dl (2.5-4.0); Potassium 3.9 mmol/L (3.5-5.1); Total Protein 7.3 gm/dl (6.0-8.3)
[2021-06-19 06:18] LABS: Appearance Urine Clear (Clear); Bacteria Urine Automated Negative (Negative); Bilirubin Urine Negative (Negative); Blood Urine Negative (Negative); Color Urine Yellow; Glucose Urine UA 1+ (Negative); Ketones Urine Trace (Negative); Leukocyte Esterase Urine Negative (Negative); Nitrite Urine Negative (Negative); RBC Urine Automated 0-4 /hpf (0-4); Urobilinogen Urine Negative (Negative); pH Urine 8.5 (4.5-7.5)
[2021-06-19 06:34] LABS: Protein Urine 1+ (Negative)
[2021-06-19 06:48] LABS: Hematocrit (blood only) 45.4 % (42-52); Mean Corpuscular Hemoglobin 29.3 pg (25-34); Mean Corpuscular Volume 88.7 fL (80-100); RDW Coefficient of Variation 13.8 % (11.5-14.5); RDW Standard Deviation 44.9 fL (36.4-46.3); Red Blood Count 5.12 M/uL (4.7-6.1); White Blood Count 17.52 K/uL (4.8-10.8)
[2021-06-19 06:49] LABS: Basophils # (auto) 0.02 K/uL (0-0.2); Basophils % (auto) 0.1 %; Eosinophils # (auto) 0.02 K/uL (0-0.5); Eosinophils % (auto) 0.1 %; Immature Granulocytes # (auto) 0.06 K/uL (0.00-0.02); Immature Granulocytes % (auto) 0.3 %; Lymphocytes # (auto) 0.79 K/uL (1.2-3.4); Lymphocytes % (auto) 4.5 %; Monocytes # (auto) 1.39 K/uL (0.11-0.59); Monocytes % (auto) 7.9 %; Neutrophils # (auto) 15.24 K/uL (1.4-6.5); Neutrophils % (auto) 87.1 %; RBC Morphology Unremarkable
[2021-06-19] MEDS ORDERED: OPTIRAY 320 100ml IV ONE (07:00)
--- NOTE | 2021-06-19 07:36 | CT Scan Report ---
CT abd pelvis oral and IV con CLINICAL HISTORY: generalized abdominal pain, epigastric pain TECHNIQUE: Helical axial images of the abdomen and pelvis were obtained and displayed. Automated dose lowering techniques and/or adjustment according to patient size were utilized for this exam. This e xam was performed with intravenous contrast. CT DOSE: 3891.84 mGy.cm COMPARISON: None available at the time of this dictation. FINDINGS: Lower chest: Prominent pleural fat is noted. Liver: Unremarkable. No focal lesions are seen. Gallbladder and biliary tree: The gallbladder is distended. Is wall appears minimally thickened measu ring 3 to 5 mm. A few gallstones are noted in the dependent portion of the gallbladder. No intra- or extrahepatic biliary ductal dilation. Pancreas: Unremarkable, no focal lesions. Spleen: Splenule is incidentally noted. Adrenals: Unremarkable. Kidneys and ureters: Multiple cysts are seen measuring up to 12 mm in diameter on the left. Bladder: Limited evaluation due to underdistention. Reproductive organs: Prostatic calcifications are seen which may represent prior hemorrhage or granul omatous disease. Bowel: Diverticulosis is seen without evidence of diverticulitis. Lymph nodes Retroperitoneal: Unremarkable. Mesenteric: Unremarkable. Pelvic: Unremarkable. Peritoneum: Normal. Vessels: Atherosclerotic calcifications are seen. Abdominal wall: A fat-containing umbilical hernia is seen. Bones: Degenerative changes in the visualized spine. IMPRESSION: Distention and likely wall thickening in the gallbladder concerning for acute cholecystitis. A depend ent gallstone is seen. If there is clinical uncertainty, lateral quadrant ultrasound or nuclear medic ine HIDA scan can be performed. ACT 112: Negative or not required by law. Electronically signed by: Smith Todd M.D. 06/19/2021 7:34 AM
[2021-06-19] MEDS ORDERED: METOPROLOL SUCC 50MG EXT REL TAB PO STA (07:54)
[2021-06-19] MEDS ORDERED: lisinopril 40 MG TAB PO STA (07:54)
[2021-06-19] MEDS ORDERED: MoRPHine SULFATE 4 MG/ML 1 ML CARP\\VIAL IV STA (07:54)
[2021-06-19] MEDS ORDERED: METOPROLOL SUCC 25MG EXT REL TAB PO STA (07:54)
--- NOTE | 2021-06-19 08:01 | Emergency Department Note ---
ED Visit Note ED NOTE: Received this patient in signout from Janay Hopkins PA-C, at change of shift. Briefly patient is a 65-year-old male with past medical history significant for hypertension, dyslipidemia, atrial fibrillation, history of CHF, among other chronic medical problems, who presents emergency department for evaluation of upper abdominal pain, nausea and vomiting. At change of shift, CT scan of the abdomen and pelvis was pending. Laboratory studies noted a leukocytosis of 17,500 with left shift and bandemia. Electrolytes and renal functions are normal. Transaminases are not elevated. Lipase is within normal limits. Troponin was negative x1, BNP not indicative of CHF. Urine microscopy was clear. Patient had received IV acetaminophen, Zofran, Pepcid and IV fluids with some relief of his symptoms while in the emergency department. CT scan of the abdomen and pelvis with IV and oral contrast notes the gallbladder to be distended with minimal gallbladder wall thickening and dependent gallstones. No ductal dilatation noted. No other acute pathology in the abdomen or pelvis identified. If clinical uncertainty, gallbladder ultr asound or HIDA scan could be performed. Patient was reassessed around 0745. His blood pressure readings have been elevated in the 200s over 100s since returning from CAT scan. Patient has multiple antihypertensives that he normally takes in the morning, med list was reviewed with him. He is on lisinopril, metoprolol, furosemide and spironolactone. He was still noting a lot of upper abdominal/epigastric discomfort and cramping. CT scan findings were reviewed with him and it was recommended that we proceed with the ultrasound. CT scan findings were reviewed with Dr. Gamez, and patient was given cefepime 2 g IV empirically. He was still uncomfortable, therefore was given morphine 4 mg IV and Zofran 4 mg IV. He was also given his a.m. dose of lisinopril 40 mg and metoprolol 125 mg with a sip of water at this time. Patient unfortunately did not get these medications prior to going to ultrasound, they were administered around 0900 when he got back to the department. Ultrasound does note gallbladder sludge, gallbladder wall thickening, with a positive sonographic Whitlock sign concerning for acute cholecystitis. Common duct is 0.5 cm in diameter. Patient was reassessed when he returned to the department, and ultrasound findings were reviewed with him. ED physician is aware of the patient's presentation and ED course thus far. Consultation was placed with general surge ry, patient reviewed with Fady Tolentino PA-C. COVID swab was obtained for admitting purposes. Patient was seen in the emergency department by general surgery, Dr. Rene. They will take the patient to the OR later today for cholecystectomy. Patient was ordered labetalol 10 mg IV persistently elevated blood pressure, and 180s over 100s, however when the patient's blood pressure was checked within the more appropriate sized cuff, he was in the 140s over 100. The labetalol order was canceled by Dr. Gamez. The patient was taken to the OR for surgical intervention.
[2021-06-19] MEDS ORDERED: CEFEPIME 2,000 MG/20 ML VIAL IV STA (08:41)
--- NOTE | 2021-06-19 08:55 | Ultrasound Report ---
US gallbladder CLINICAL HISTORY: EPIGASTRIC PAIN, POSSIBLE MARILY, ABNORMAL CT TECHNIQUE: Multiple real-time sonographic images of the right upper quadrant were obtained. Comparison: Comparison is made to CT abdomen pelvis 06/19/2021 FINDINGS: The liver is diffusely homogenous with normal contour and echogenicity. No focal mass lesions are se en. No intrahepatic ductal dilatation is seen. Low level internal echoes are identified layering dependently within the gallbladder, which is consistent with gallbladder sludge. The gallbladder wall is mildly thickened measuring approximately 3 mm. There is no pericholecystic fluid present. A sono graphic Whitlock's sign was elicited by the ammunition assembly i laborer. The common duct measures 0.5 cm in diameter at the level of the hepatic artery. The visualized portions of the pancreas appear normal. The right kidney shows normal echogenicity, cortical thickness and renal contour. The right kidney sh ows no evidence of hydronephrosis or mass. No ascites or free fluid is seen in Willingham's pouch. IMPRESSION: Positive Whitlock's sign and gallbladder sludge, stones, and wall thickening compatible with acute chol ecystitis. ACT 112: Negative or not required by law. Electronically signed by: Smith Todd M.D. 06/19/2021 8:54 AM
--- NOTE | 2021-06-19 09:38 | History & Physical Report ---
Date of Service June 19, 2021 Assessment & Plan (1) Acute cholecystitis: Plan: This is a 65y M with a PMH of afib, HTN, heart failure and history of coronary bypass who presents to the [facility] ED on 06/19/21 with complaints of abdominal pain and nausea/vomiting starting yesterday. In the ER a CT a/p was performed that revealed distention and likely wall thickening in the gallbladder concerning for acute cholecystitis. A dependent gallstone is seen. Follow up with a RUQ US showed positive Whitlock's sign and gallbladder sludge, stones, and wall thickening compatible with acute cholecystitis. Patient's WBC 17 and he is hypertensive in the ER. LFTs are within normal limits. On exam patient is tender to palpation in the RUQ. Based on history, imaging, exam we will proceed with taking the patient to the OR for a laparoscopic cholecystectomy, possible open, possible IOC. We will ask the hospitalists to see the patient post operatively given his medical issues. Pt NPO with IVF and pre-op abx given. Dr. Rene has obtained consent and we will proceed later today based on OR schedule. History of Present Illness Primary Care Provider: Shahzad Huang DO This is a 65y M with a PMH of afib, HTN, heart failure and history of coronary bypass who presents to the [facility] ED on 06/19/21 with complaints of abdominal pain. Patient reports the pain started yesterday after he was sitting in his recliner. He subsequently developed nausea/vomiting and pain progressed to the point he was doubled over in severe pain. He could not sleep or get comfortable. He presented to the ER today due to ongoing symptoms. In the ER a CT a/p was performed that revealed distention and likely wall thickening in the gallbladder concerning for acute cholecystitis. A dependent gallstone is seen. Follow up with a RUQ US showed positive Whitlock's sign and gallbladder sludge, stones, and wall thickening compatible with acute cholecystitis. Patient denies any prior abdominal surgical history. This is the first time he has had pain like this before. NPO since yesterday. Allergies Allergy/AdvReac Type Severity Reaction Status Date / Time Penicillins Allergy RASH Unverified 06/19/21 08:19 Home Medications Medication Instructions Recorded Confirmed Type baclofen 10 mg tablet 10 mg PO BID 07/02/18 06/19/21 History metoprolol succinate 100 mg 100 mg PO QAM 08/10/18 06/19/21 History tablet,extended release 24 hr cholecalciferol (vitamin D3) 25 1,000 unit PO HS 08/13/18 06/19/21 History mcg (1,000 unit) capsule (Vitamin D3) albuterol sulfate 90 mcg/actuation 2 puff INHALATION Q4H PRN 06/19/21 06/19/21 History aerosol inhaler aspirin 81 mg chewable tablet 162 mg PO DAILY 06/19/21 06/19/21 History (Aspirin Childrens) evolocumab 420 mg/3.5 mL 420 mg SUBCUT MONTHLY 06/19/21 06/19/21 History subcutaneous wearable injector (Repatha Pushtronex) ezetimibe 10 mg tablet 10 mg PO QAM 06/19/21 06/19/21 History fluticasone propionate 50 2 spray INTRANASAL QAM 06/19/21 06/19/21 History mcg/actuation nasal spray,suspension furosemide 40 mg tablet 80 mg PO BID 06/19/21 06/19/21 History lisinopril 40 mg tablet 40 mg PO QAM 06/19/21 06/19/21 History metformin 500 mg tablet,extended 1,500 mg PO QAM 06/19/21 06/19/21 History release 24 hr metoprolol succinate 25 mg 25 mg PO QAM 06/19/21 06/19/21 History tablet,extended release 24 hr nitroglycerin 0.4 mg sublingual 0.4 mg SUBLINGUAL UD 06/19/21 06/19/21 History tablet (Nitrostat) omega [id number]-[id number]-fish oil 1,000 mg 1 cap PO DAILY 06/19/21 06/19/21 History (120 mg-180 mg) capsule (Fish Oil) omeprazole 40 mg capsule,delayed 40 mg PO DAILY 06/19/21 06/19/21 History release ondansetron HCl 4 mg tablet 4 mg PO Q6H PRN 06/19/21 06/19/21 History rosuvastatin 20 mg tablet (Crestor) 40 mg PO DAILY 06/19/21 06/19/21 History spironolactone 25 mg tablet 25 mg PO QAM 06/19/21 06/19/21 History Past Med/Surg History Medical History Atrial fibrillation Barretts esophagus CHF (congestive heart failure) with preserved EF Dyslipidemia Heart failure with preserved ejection fraction Hypertension Obesity Surgical History Hx of CABG Hx of tonsillectomy S/P knee surgery Family History Mother Heart disease First [place] in her early 60s, fatal [place] at age 78 Father Stroke fatal CVA at age 69 Social History Smoking Status: Never smoker Hx Alcohol Use: Yes Alcohol type: beer Hx Substance Use: No Preferred Language: Mauritian Communication Ability: Effective Beliefs That Will Affect Care: None Current Living Situation: Significant Other current occupational status: employed current occupation: [employer] Feels Safe at Home: Yes Assistive Devices: None Review of Systems Constitutional: no fever and no chills Cardiovascular: no chest pain Gastrointestinal: + abdominal pain, + bloating, + nausea and + vomiting Physical Exam Physical Exam: awake/alert Constitutional: WD/WN, vitals as above Eyes: PERRL, conjunctivae normal, anicteric sclerae ENMT: external ear and nose normal, oropharynx normal Neck: trachea midline, no thyromegaly Respiratory: normal respiratory effort, lungs clear to auscultation Cardiovascular: RRR, no murmur, no edema Gastrointestinal (Abdomen): Inspection/Auscultation: + abdomen distended Percussion/Palpation: + abdomen tender (TTP in RUQ), abdomen soft and + hernia (umbilical hernia) Musculoskeletal: no cyanosis or clubbing, extremities motor strength 5/5 Skin: no rashes, warm and dry Neurologic: PERRL, EOMI, accommodation nl, no face palsy, no dysarthria Psychiatric: A+Ox3, euthymic affect Results & Data Results & Data ([facility]) Vital Signs (Past 12 Hours) Vital Signs Temp Pulse Resp BP Pulse Ox 06/19/21 07:29 190/127 H 06/19/21 07:27 88 24 96 06/19/21 07:07 86 22 202/104 H 98 06/19/21 07:06 91 H 20 202/104 H 06/19/21 06:40 83 22 94 06/19/21 06:30 84 22 97 06/19/21 06:20 94 H 12 95 06/19/21 06:10 81 20 96 06/19/21 06:00 91 H 20 97 06/19/21 05:50 75 19 96 06/19/21 05:40 74 19 96 06/19/21 05:30 82 17 185/94 H 97 06/19/21 05:12 83 18 96 06/19/21 05:10 82 20 06/19/21 05:09 82 19 227/85 H 95 06/19/21 05:08 85 21 06/19/21 04:12 36.8 C 74 18 107/[address] abd pelvis oral and IV con CLINICAL HISTORY: generalized abdominal pain, epigastric pain TECHNIQUE: Helical axial images of the abdomen and pelvis were obtained and displayed. Automated dose lowering techniques and/or adjustment according to patient size were utilized for this exam. This exam was performed with intravenous contrast. CT DOSE: 3891.84 mGy.cm COMPARISON: None available at the time of this dictation. FINDINGS: Lower chest: Prominent pleural fat is noted. Liver: Unremarkable. No focal lesions are seen. Gallbladder and biliary tree: The gallbladder is distended. Is wall appears minimally thickened measuring 3 to 5 mm. A few gallstones are noted in the dependent portion of the gallbladder. No intra- or extrahepatic biliary ductal dilation. Pancreas: Unremarkable, no focal lesions. Spleen: Splenule is incidentally noted. Adrenals: Unremarkable. Kidneys and ureters: Multiple cysts are seen measuring up to 12 mm in diameter on the left. Bladder: Limited evaluation due to underdistention. Reproductive organs: Prostatic calcifications are seen which may represent prior hemorrhage or granulomatous disease. Bowel: Diverticulosis is seen without evidence of diverticulitis. Lymph nodes Retroperitoneal: Unremarkable. Mesenteric: Unremarkable. Pelvic: Unremarkable. Peritoneum: Normal. Vessels: Atherosclerotic calcifications are seen. Abdominal wall: A fat-containing umbilical hernia is seen. Bones: Degenerative changes in the visualized spine. IMPRESSION: Distention and likely wall thickening in the gallbladder concerning for acute cholecystitis. A dependent gallstone is seen. If there is clinical uncertainty, lateral quadrant ultrasound or nuclear medicine HIDA scan can be performed. ACT 112: Negative or not required by law. Electronically signed by: Smith Todd M.D. 06/19/2021 7:34 AM US gallbladder CLINICAL HISTORY: EPIGASTRIC PAIN, POSSIBLE MARILY, ABNORMAL CT TECHNIQUE: Multiple real-time sonographic images of the right upper quadrant were obtained. Comparison: Comparison is made to CT abdomen pelvis 06/19/2021 FINDINGS: The liver is diffusely homogenous with normal contour and echogenicity. No focal mass lesions are seen. No intrahepatic ductal dilatation is seen. Low level internal echoes are identified layering dependently within the gallbladder, which is consistent with gallbladder sludge. The gallbladder wall is mildly thickened measuring approximately 3 mm. There is no pericholecystic fluid present. A sonographic Whitlock's sign was elicited by the fiberglass ski maker. The common duct measures 0.5 cm in diameter at the level of the hepatic artery. The visualized portions of the pancreas appear normal. The right kidney shows normal echogenicity, cortical thickness and renal contour. The right kidney shows no evidence of hydronephrosis or mass. No ascites or free fluid is seen in Willingham's pouch. IMPRESSION: Positive Whitlock's sign and gallbladder sludge, stones, and wall thickening compatible with acute cholecystitis. ACT 112: Negative or not required by law. Electronically signed by: Smith Todd M.D. 06/19/2021 8:54 AM Supervising Physician Co-Signing Physician Notes I personally saw and evaluated the patient with Dinah Torres PA-C and agree with the assessment and plan. 65-year-old male with acute cholecystitis CT and ultrasound images viewed by me Clinically he has acute cholecystitis without LFT elevation We will plan on laparoscopic cholecystectomy, possible open, possible intraoperative cholangiogram today Consent obtained, risks discussed including bleeding, infection, bile leak, ductal injury He does have a significant heart history with a CABG x3 2-1/2 years ago and history of atrial fibrillation not on anticoagulation We will consult hospitalist medicine postoperatively for medical comanagement PG Care Time/CCT Total # of Minutes Spent Total Time Spent with Patient: Total time spent is greater than 50% in coordination of care (as documented) at patient's floor/unit and/or counseling patient: Coding Level of Care Code 62317 Initial Inpt Care Lvl 3 Diagnoses Acute cholecystitis K81.0
[2021-06-19] MEDS ORDERED: LABETALOL HCL IV 5 MG/ML 20ML IV STA (10:02)
--- NOTE | 2021-06-19 10:06 | Emergency Department Note ---
ED Visit Note Patient was seen by our PA/PAGE MAKEUP SYSTEM OPERATOR. I was involved in the patient's care and did evaluate the patient myself. I was involved in the care throughout the ER stay. The patient has acute cholecystitis by work-up. He has received antibiotics. He is going to be hospitalized for a cholecystectomy. Of note, the patient's blood pressure was elevated. He did receive his typical normal morning blood pressure meds. He is going to receive IV labetalol in addition. .
[2021-06-19] MEDS ORDERED: MIDAZOLAM HCL 1 MG/ML 2ML VIAL ONE (10:44)
[2021-06-19] MEDS ORDERED: fentaNYL citrate 100 MCG/2 ML VIAL ONE (10:44)
[2021-06-19] MEDS ORDERED: LIDOCAINE 2% 2 ML VIAL/AMP(20MG/ML) INFIL ONE (10:50)
[2021-06-19] MEDS ORDERED: PROPOFOL IV EMULSION 10 MG/ML 20 ML VIAL IV ONE (10:50)
[2021-06-19] MEDS ORDERED: DEXAMETHASONE SOD INJ 4 MG/ML VIAL ONE (10:50)
[2021-06-19] MEDS ORDERED: ONDANSETRON INJ 2 MG/ML 2 ML VIAL ONE (10:50)
[2021-06-19] MEDS ORDERED: NEOSTIGMINE METHYLSULFATE 1 MG/ML 10ML VIAL ONE ×3 (10:51)
[2021-06-19] MEDS ORDERED: GLYCOPYRROLATE 0.2 MG/ML VIAL ONE (10:51)
[2021-06-19] MEDS ORDERED: BUPIVACAINE/EPINEPHRINE 0.25% 1:200,000 30 ML VIAL ONE (11:16)
--- NOTE | 2021-06-19 11:17 | Anesthesiology Consultation ---
Date of Service June 19, 2021 Assessment & Plan Chart Review Chart Review: Acceptable Risk for Surgery Consults Requested none History Surgery Operation Date: 06/19/21 13:10 Proposed Procedures p Laparoscopic Cholecystectomy Possible Cholangiogram - Cristopher Rene DO Height/Weight Height: 5 ft 9.5 in Weight: 125.7 kg Allergies Allergy/AdvReac Type Severity Reaction Status Date / Time Penicillins Allergy RASH Unverified 06/19/21 08:19 Medications Home Medications Medication Instructions Recorded Confirmed Last Taken baclofen 10 mg tablet 10 mg PO BID 07/02/18 06/19/21 03/21/19 metoprolol succinate 100 mg 100 mg PO QAM 08/10/18 06/19/21 03/23/19 tablet,extended release 24 hr cholecalciferol (vitamin D3) 25 1,000 unit PO HS 08/13/18 06/19/21 03/22/19 mcg (1,000 unit) capsule (Vitamin D3) albuterol sulfate 90 mcg/actuation 2 puff INHALATION Q4H PRN 06/19/21 06/19/21 Unknown aerosol inhaler aspirin 81 mg chewable tablet 162 mg PO DAILY 06/19/21 06/19/21 Unknown (Aspirin Childrens) evolocumab 420 mg/3.5 mL 420 mg SUBCUT MONTHLY 06/19/21 06/19/21 Unknown subcutaneous wearable injector (Repatha Pushtronex) ezetimibe 10 mg tablet 10 mg PO QAM 06/19/21 06/19/21 Unknown fluticasone propionate 50 2 spray INTRANASAL QAM 06/19/21 06/19/21 Unknown mcg/actuation nasal spray,suspension furosemide 40 mg tablet 80 mg PO BID 06/19/21 06/19/21 Unknown lisinopril 40 mg tablet 40 mg PO QAM 06/19/21 06/19/21 Unknown metformin 500 mg tablet,extended 1,500 mg PO QAM 06/19/21 06/19/21 Unknown release 24 hr metoprolol succinate 25 mg 25 mg PO QAM 06/19/21 06/19/21 Unknown tablet,extended release 24 hr nitroglycerin 0.4 mg sublingual 0.4 mg SUBLINGUAL UD 06/19/21 06/19/21 Unknown tablet (Nitrostat) omega [id number]-fish oil 1,000 mg 1 cap PO DAILY 06/19/21 06/19/21 Unknown (120 mg-180 mg) capsule (Fish Oil) omeprazole 40 mg capsule,delayed 40 mg PO DAILY 06/19/21 06/19/21 Unknown release ondansetron HCl 4 mg tablet 4 mg PO Q6H PRN 06/19/21 06/19/21 Unknown rosuvastatin 20 mg tablet (Crestor) 40 mg PO DAILY 06/19/21 06/19/21 Unknown spironolactone 25 mg tablet 25 mg PO QAM 06/19/21 06/19/21 Unknown NPO Date Last Intake of Fluids: 06/19/21 Time Last Intake of Fluids: 07:00 Last Intake of Fluids Comment: sip with med in ED Date Last Intake of Solids: 06/18/21 Time Last Intake of Solids: 07:00 Past Medical History Medical History Atrial fibrillation Barretts esophagus CHF (congestive heart failure) with preserved EF Dyslipidemia Heart failure with preserved ejection fraction Hypertension Obesity Past Family History Family History Mother Heart disease First ID in her early 60s, fatal ID at age 78 Father Stroke fatal CVA at age 69 Past Surgical History Surgical History Hx of CABG Hx of tonsillectomy S/P knee surgery Social History Smoking Status: Never smoker Hx Alcohol Use: Yes Alcohol type: beer alcohol intake frequency: holidays/special occasions only Hx Substance Use: No Physical Exam Vital Signs Last Vital Signs Temp 36.8 C 06/19/21 10:38 Pulse 88 06/19/21 10:38 Resp 20 06/19/21 10:38 BP 190/114 H 06/19/21 10:38 Pulse Ox 97 06/19/21 10:38 Testing Laboratory Results 06/19/21 05:36 06/19/21 05:38 Urine Color Yellow 06/19/21 05:28 Urine Appearance Clear (Clear) 06/19/21 05:28 Urine pH 8.5 (4.5-7.5) H 06/19/21 05:28 Ur Specific [place] 1.020 (1.000-1.030) 06/19/21 05:28 Urine Protein 1+ (Negative) H 06/19/21 05:28 Urine Glucose (UA) 1+ (Negative) H 06/19/21 05:28 Urine Ketones Trace (Negative) H 06/19/21 05:28 Urine Nitrite Negative (Negative) 06/19/21 05:28 Ur Leukocyte Esterase Negative (Negative) 06/19/21 05:28 Urine WBC (Auto) 1-5 /hpf (0-5) 06/19/21 05:28 Urine RBC (Auto) 0-4 /hpf (0-4) 06/19/21 05:28 U Hyaline Cast (Auto) 1-5 /lpf (0-5) 06/19/21 05:28 U Epithel Cells (Auto) 10-20 /lpf (0-5) H 06/19/21 05:28 Urine Bacteria (Auto) Negative (Negative) 06/19/21 05:28
[2021-06-19] MEDS ORDERED: PROMETHAZINE HCL 12.5 MG in SODIUM CHLORIDE 0.9% 50 ML IV PRN ×2 (11:22→14:38)
[2021-06-19] MEDS ORDERED: fentaNYL citrate 100 MCG/2 ML VIAL IV PRN (11:22)
[2021-06-19] MEDS ORDERED: ONDANSETRON INJ 2 MG/ML 2 ML VIAL IV PRN ×2 (11:22→14:15)
[2021-06-19] MEDS ORDERED: ePHEDrine sulfate 50 MG/ML AMP IV PRN (11:22)
[2021-06-19] MEDS ORDERED: HYDROmorphone INJ 2 MG/ML SYR/VIAL IV PRN (11:22)
[2021-06-19] MEDS ORDERED: ATROPINE SULFATE 0.1 MG/ML 10ML SYR IV PRN (11:22)
[2021-06-19] MEDS ORDERED: LABETALOL HCL IV 5 MG/ML 20ML IV ONE (11:50)
[2021-06-19] MEDS ORDERED: FLOSEAL HEMOSTATIC MATRIX 10ML TOP ONE (12:28)
--- NOTE | 2021-06-19 12:47 | Post Operative Brief Note ---
PG Immediate Post Op with CF Date of Surgery June 19, 2021 Pre & Post Diagnosis Operation Date: 06/19/21 13:10 Pre-Op Diagnosis: acute cholecystitis Post-Op Diagnosis: acute cholecystitis I identified the patient and participated in the time-out.: Yes Procedure Operation Date: 06/19/21 13:10 Actual Procedures p Laparoscopic Cholecystectomy (Not Applicable) - Cristopher Rene DO Surgeon Cristopher Rene DO Group Billing Coordinator Mike Villa PA-C Estimated Blood Loss 25 Findings See Below Acutely inflamed dilated edematous gallbladder Specimens Specimen Description: A: gallbladder and contents Anesthesia Type General Complications none Disposition Disposition: Recovery Room
--- NOTE | 2021-06-19 12:49 | Operative Report ---
PG Post Operative Report Pre & Post Diagnosis Operation Date: 06/19/21 13:10 Pre-Op Diagnosis: acute cholecystitis Post-Op Diagnosis: acute cholecystitis I identified the patient and participated in the time-out.: Yes Procedure Operation Date: 06/19/21 13:10 Actual Procedures p Laparoscopic Cholecystectomy (Not Applicable) - Cristopher Rene DO Surgeon Cristopher Rene DO Hotel Yardperson Mike Villa PA-C Estimated Blood Loss 25 Findings See Below Fluids see anesthesia record Specimens Gallbladder to pathology Drains None Anesthesia Type General Complications none Disposition Disposition: Recovery Room Indications 65-year-old male with acute cholecystitis Description of Procedure The patient was brought to the operating room and placed in the supine position with both arms extended. At this time he underwent general endotracheal anesthesia without any problems. He was given appropriate pre-operative antibiotics. His abdomen was prepped and draped in the usual sterile fashion. A timeout was called, the procedure was verified as Laparoscopic cholecystectomy, possible open, possible intra-operative cholangiogram. Surgical, nursing and anesthesia teams agreed and the procedure was begun. After injection of 0.25% Marcaine with epinephrine, a supraumbilical vertical incision was made and carried down to the fascia using S-retractors. The abdominal wall was then elevated with towel clamps and abdomen entered using the Veress needle confirming position using the saline drop test. Pneumoperitoneum was established. 5mm trocar was placed. Laparoscope was introduced. No injury from entry into the abdomen was visualized after inspection of the abdomen. Three further ports were placed under direct visualization. One 11mm in the subxiphoid region and two 5mm in the RUQ. At this time the abdomen was inspected and the gallbladder identified. The gallbladder fundus was grasped and retracted cephalad. The gallbladder was acutely inflamed, dilated and edematous. The gallbladder was decompressed. The gallbladder infundibulum was then grasped and retracted laterally. The cystic duct and cystic artery were then identified and skeletonized. The critical view of safety was obtained. They were both then clipped twice proximally and once distally and then divided using scissors. The gallbladder was then taken off of the liver bed using electrocautery and placed in an endocatch bag and removed from the subxiphoid port. The liver bed was then inspected and any sites of oozing were cauterized using electrocautery. Floseal was then placed in the liver bed for hemostasis. The subxiphoid port was then closed using 0-Vicryl using the suture passer. The trocars were then removed under direct visualization and no bleeding was present. Abdomen was desufflated. The skin was then closed using 4-0 Monocryl in a subcuticular fashion. Surgical glue was applied. Needle and sponge counts were correct x 2. At this time the patient was awoken from anesthesia and extubated having remained stable throughout the entire case. The patient was then transported to PACU in stable condition. The physician dental front office assistant was present scrubbed for the entire case. He was essential in positioning, prepping and draping the patient, driving the laparoscope, retraction and exposure, closure of the incisions and placement the dressings. I attest to the content of the Intraoperative Record and any orders documented therein. Any exceptions are noted below.
--- NOTE | 2021-06-19 14:11 | Anesthesiology Progress Note ---
Date of Service June 19, 2021 Anesthesia Post Procedure Vital Signs Vital Signs: Temp Pulse Pulse Pulse Resp BP BP 06/19/21 13:55 37.9 C H 93 H 22 118/84 06/19/21 13:45 37.9 C H 91 H 22 125/90 06/19/21 13:35 37.9 C H 91 H 29 H 128/82 06/19/21 13:25 88 24 141/76 H 06/19/21 13:15 86 20 153/82 H 06/19/21 13:05 79 20 150/86 H 06/19/21 12:59 36.4 C L 80 20 167/90 H 06/19/21 10:38 36.8 C 88 20 190/114 H 06/19/21 10:17 89 24 149/84 H 06/19/21 10:01 88 25 H 181/100 H 06/19/21 10:00 92 H 17 06/19/21 09:30 93 H 29 H 205/118 H 06/19/21 09:16 101 H 25 H 198/111 H 06/19/21 09:03 06/19/21 07:29 190/127 H 06/19/21 07:27 88 24 06/19/21 07:07 86 22 202/104 H 06/19/21 07:06 91 H 20 202/104 H 06/19/21 06:40 83 22 06/19/21 06:30 84 22 06/19/21 06:20 94 H 12 06/19/21 06:10 81 20 06/19/21 06:00 91 H 20 06/19/21 05:50 75 19 06/19/21 05:40 74 19 06/19/21 05:30 82 17 185/94 H 06/19/21 05:12 83 18 06/19/21 05:10 82 20 06/19/21 05:09 82 19 227/85 H 06/19/21 05:08 85 21 06/19/21 04:12 36.8 C 74 18 107/70 Pulse Ox 06/19/21 13:55 94 06/19/21 13:45 94 06/19/21 13:35 95 06/19/21 13:25 93 06/19/21 13:15 97 06/19/21 13:05 97 06/19/21 12:59 95 06/19/21 10:38 97 06/19/21 10:17 06/19/21 10:01 97 06/19/21 10:00 06/19/21 09:30 97 06/19/21 09:16 96 06/19/21 09:03 92 06/19/21 07:29 06/19/21 07:27 96 06/19/21 07:07 98 06/19/21 07:06 06/19/21 06:40 94 06/19/21 06:30 97 06/19/21 06:20 95 06/19/21 06:10 96 06/19/21 06:00 97 06/19/21 05:50 96 06/19/21 05:40 96 06/19/21 05:30 97 06/19/21 05:12 96 06/19/21 05:10 06/19/21 05:09 95 06/19/21 05:08 06/19/21 04:12 96 Transfer of Care Handoff Completed per policy Notes Mental Status: alert / awake / arousable and participated in evaluation Patient Amnestic to Procedure: Yes Nausea / Vomiting: adequately controlled Pain: adequately controlled Airway Patency, RR, SpO2: stable & adequate BP & HR: stable & adequate Hydration State: stable & adequate Anesthetic Complications: no major complications apparent
[2021-06-19] MEDS ORDERED: oxyCODONE HCL IR 5 MG TAB (IMMEDIATE RELEASE) PO PRN (14:15)
[2021-06-19] MEDS ORDERED: NITROGLYCERIN SL 0.4 MG/TAB TAB SL PRN (14:15)
[2021-06-19] MEDS ORDERED: ALBUTEROL HFA 8 GM INHALER INH PRN (14:15)
[2021-06-19] MEDS ORDERED: ACETAMINOPHEN 325 MG TAB PO PRN (14:15)
[2021-06-19] MEDS ORDERED: MoRPHine SULFATE 2 MG/ML CARP IV PRN (14:15)
[2021-06-19] MEDS ORDERED: MoRPHine SULFATE 4 MG/ML 1 ML CARP\\VIAL IV PRN (14:15)
--- NOTE | 2021-06-19 14:25 | Electrocardiogram Report ---
Test Reason : Blood Pressure : / mmHG Vent. Rate : 090 BPM Atrial Rate : 090 BPM P-R Int : 176 ms QRS Dur : 088 ms QT Int : 396 ms P-R-T Axes : 015 -01 070 degrees QTc Int : 484 ms Sinus rhythm with Premature atrial complexes with Aberrant conduction Minimal voltage criteria for LVH, may be normal variant Nonspecific ST and T wave abnormality Prolonged QT Abnormal ECG When compared with ECG of 19-JUN-2021 11:25, (unconfirmed) Aberrant conduction is now Present Confirmed by Camron Colon ([id number]) on 06/19/2021 2:24:48 PM Referred By: REFERRED SELF Confirmed By:Yahir Colon
--- NOTE | 2021-06-19 14:32 | Consultation ---
Date of Consultation June 19, 2021 Assessment & Plan (1) Acute cholecystitis: (2) CAD (coronary artery disease): (3) CHF (congestive heart failure): (4) Atrial fibrillation: (5) T2DM (type 2 diabetes mellitus): This is a 65-year-old male who has a significant past medical history of CAD status post CABG x3 in 2019, history of PAF status post DC CV as well as pulmonary vein isolation and left atrial appendage clip at time of his CABG, history of SVT, diastolic CHF, HTN, HLD, T2DM, Garcia's esophagus, morbid obesity who presented to ED secondary to abdominal pain, nausea and vomiting x1 day. Acute cholecystitis Leukocytosis s/p Lap Dr. Edgard Ramírez POD #0 Tolerated procedure well EBL 25 mL Pain/wound management per surgery Discussed with surgery - no further indication for antibiotics CAD hx of CABG 2019 PAF s/p PVI and Left atrial appendage clip Chronic HFpEF HTN HLD euvolemic, no CP or SOB daily weights, strict intake and output lasix, aldactone, lisinopril currently on hold - eval volume status, renal fxn and bp in a.m. and resume if able continue ASA, metoprolol crestor on hold - resume when able, he is also on Repatha inj as OP monthly T2DM well controlled a1c 5.9 06/04/21 hold metformin, novolog per protocol Rash pt complains of rash to abd, extensor surf of UE and face no new meds, detergents, soaps tried OP steroid cream, no improvement not itchy, occassionally painful recommend OP derm eval and eval with PCP DVT ppx: SCD/TEDS per primary Dispo: d/c home when cleared by surg PCP: Fernanda Huang FULL CODE Pt was seen and examined in collaboration with Dr. Stewart, please see addendum Thank you for this consultation. We will follow the patient with you during their hospital stay. You can reach a member of the [facility] Hospitalist Team 23/09 via hospitalist role on tiger text. Supervising Physician Co-Signing Physician Notes 65 yo M presented for laparoscopic cholecystectomy, which was performed today. He is feeling better post-operatively and denies nausea, with pain that is controlled. Denies chest pain or shortness of breath. He is on Lasix, lisinopril and spironolactone and post-operatively has been placed on intravenous fluids. He appears somewhat short of breath with minimal exertion, and per his report, this is his baseline. He has chronic intermittent feet swelling with no edema present currently, and denies any recent weight gain. He reports working on losing weight at home. Hypertensive this morning with blood pressure noted 227/85. He has had home metoprolol, lisinopril today. BP currently 152/84, HR 88. Obese, NAD. Slight conversational dyspnea. Lungs clear to auscultation. Irregularly , irregular rhythm with S1/2 heard and no m/g/r. No peripheral edema. No gross neurologic deficit. Euvolemic. After further discussion with provider above, will continue all home meds starting tomorrow and hold on further intravenous fluids at this time given elevated blood pressure this morning. Pain seems to be improved, so hopeful this keeps the blood pressure down overnight. Continuing to hold crestor and zetia is fine as do not anticipate prolonged hospital stay. Rash present is pruritic and may be some reaction from Repatha started in Jan 2021? Benadryl PRN and followup with PCP or derm as outpatient. Thank you for this consultation. We will continue to follow this patient throughout the remainder of his stay. DO Terry History of Present Illness Requesting Physician: Dr. Rene Reason for Consultation: Dr. Rene Attending Physician: Cristopher Rene DO History of Present Illness This is a 65-year-old male who has a significant past medical history of CAD status post CABG x3 in 2019, history of PAF status post DC CV as well as pulmonary vein isolation and left atrial appendage clip at time of his CABG, history of SVT, diastolic CHF, HTN, HLD, T2DM, Garcia's esophagus, morbid obesity who presented to ED secondary to abdominal pain, nausea and vomiting x1 day. In ED patient underwent CT abdomen pelvis which was concerning for acute cholecystitis. His white blood cell count was 17,000. LFTs were unremarkable. He was seen and examined by general surgery in ED and opted to undergo urgent laparoscopic cholecystectomy. Currently he is postopera tive and tolerated the procedure well. He had 25 mL EBL. Postoperatively he feels a significant relief of pain. He states epigastric and right upper quadrant pain started approximately 1 day ago. It started shortly after eating a ham pot pie and apple pie on Friday. He also complained of nausea and vomiting. Currently he does complain of mild incisional discomfort. He denies any fever, chills, sweats, lightheadedness, dizziness, chest pain, shortness of breath, cough, nausea, vomiting, change in bowel or urinary habits. At baseline he complains of significant nocturia. He also complains of a intermittent rash that has been present for the past month. It is located on face, abdomen and upper extremity extensor surfaces. It is scab-like. He has tried [id number] steroid cream which made it worse. No recent change in soaps or detergents. No new medications. Unsure if any food makes it worse. He states its not itchy, but occasionally painful. Epic chart was reviewed. Regards to patient history of T2DM. His last A1c was 5.9 on 06/04/2021. It is well controlled on oral metformin. He does have history of CAD with CABG x3 in 2019. He also is history of diastolic CHF. He recently had echocardiogram in March 2021 which revealed improved EF 55%, grade 1 diastolic dysfunction and mild aortic valve sclerosis. He does follow closely with [facility] cardiology. Problem List * New onset symptomatic paroxysmal atrial fibrillation with a rapid ventricular response initially observed in July 2018. Status post July 06, 2018 direct current cardioversion. * [id number] Score 3 points. * Systolic and diastolic congestive heart failure * Multivessel coronary artery disease (Cardiac catheterization on August 14, 2018 revealed 50% distal left main stenosis that was hemodynamically significant by FFR, 60% OM1, 100% OM2, 100% proximal RCA, 80% distal RCA, severe diffuse apical LAD stenosis of 70 to 80%, 75% D1 stenosis involving both the superior and inferior limbs) * Status post CABG x3 on August 27, 2018, receiving a PRABHAKAR to the LAD, SVG to the OM, and a SVG to the PDA via endoscopic veing harvesting) by Dr. Jimenez. * Status post pulmonary vein isolation procedure at the time of CABG. * Status post left atrial appendage clip (50 mm) at the time of CABG. * Postop course complicated by SVT with recommendations by Dr. Jennings to utilize amiodarone, 200 mg/day x1 month post discharge. Coumadin anticoagulation recommended x 4 months. * Hypertension * Dyslipidemia * Obesity * Garcia's esophagus * Suspected sleep apnea Allergies Allergy/AdvReac Type Severity Reaction Status Date / Time Penicillins Allergy RASH Unverified 06/19/21 08:19 Home Medications Medication Instructions Recorded Confirmed Type baclofen 10 mg tablet 10 mg PO BID 07/02/18 06/19/21 History metoprolol succinate 100 mg 100 mg PO QAM 08/10/18 06/19/21 History tablet,extended release 24 hr cholecalciferol (vitamin D3) 25 1,000 unit PO HS 08/13/18 06/19/21 History mcg (1,000 unit) capsule (Vitamin D3) albuterol sulfate 90 mcg/actuation 2 puff INHALATION Q4H PRN 06/19/21 06/19/21 History aerosol inhaler aspirin 81 mg chewable tablet 162 mg PO DAILY 06/19/21 06/19/21 History (Aspirin Childrens) evolocumab 420 mg/3.5 mL 420 mg SUBCUT MONTHLY 06/19/21 06/19/21 History subcutaneous wearable injector (Repatha Pushtronex) ezetimibe 10 mg tablet 10 mg PO QAM 06/19/21 06/19/21 History fluticasone propionate 50 2 spray INTRANASAL QAM 06/19/21 06/19/21 History mcg/actuation nasal spray,suspension furosemide 40 mg tablet 80 mg PO BID 06/19/21 06/19/21 History lisinopril 40 mg tablet 40 mg PO QAM 06/19/21 06/19/21 History metformin 500 mg tablet,extended 1,500 mg PO QAM 06/19/21 06/19/21 History release 24 hr metoprolol succinate 25 mg 25 mg PO QAM 06/19/21 06/19/21 History tablet,extended release 24 hr nitroglycerin 0.4 mg sublingual 0.4 mg SUBLINGUAL UD 06/19/21 06/19/21 History tablet (Nitrostat) omega 1-ktw-hwa-fish oil 1,000 mg 1 cap PO DAILY 06/19/21 06/19/21 History (120 mg-180 mg) capsule (Fish Oil) omeprazole 40 mg capsule,delayed 40 mg PO DAILY 06/19/21 06/19/21 History release ondansetron HCl 4 mg tablet 4 mg PO Q6H PRN 06/19/21 06/19/21 History rosuvastatin 20 mg tablet (Crestor) 40 mg PO DAILY 06/19/21 06/19/21 History spironolactone 25 mg tablet 25 mg PO QAM 06/19/21 06/19/21 History Patient History Medical History (Updated 06/19/21 @ 15:15 by Rupal Pereira PA-C) Atrial fibrillation Barretts esophagus CAD (coronary artery disease) CHF (congestive heart failure) with preserved EF Dyslipidemia Heart failure with preserved ejection fraction Hypertension Obesity T2DM (type 2 diabetes mellitus) Surgical History Hx of CABG Hx of tonsillectomy S/P knee surgery Family History Mother Heart disease First NM in her early 60s, fatal NM at age 78 Father Stroke fatal CVA at age 69 Social History (Updated 06/19/21 @ 15:36 by Rupal Pereira PA-C) Smoking Status: Never smoker Hx Alcohol Use: No Hx Substance Use: No Preferred Language: Israeli Communication Ability: Effective Suture Polisher Required: No Beliefs That Will Affect Care: None Current Living Situation: Spouse current occupational status: employed current occupation: [employer] Feels Safe at Home: Yes Safety Concerns: Feels Safe At This Time Assistive Devices: None Review of Systems Review of Systems: All systems reviewed & are unremarkable except as noted in HPI & below Physical Exam Physical Exam: Constitutional: WD/WN, M, obese, vitals as above, NAD, sitting up in bed, pleasant, conversing easily Head: Normocephalic, Atraumatic Eyes: PERRL, conjunctivae normal, anicteric sclerae ENMT: external ear and nose normal, oropharynx normal Neck: trachea midline, no thyromegaly normal visual inspection Respiratory: normal respiratory effort, lungs clear to auscultation, no wheeze, rales, rhonchi. Normal insp/exp effort, no accessory muscle use Cardiovascular: RRR, no murmur, no edema Vessels: no JVD or carotid bruit Chest: normal inspection of chest,sternal scar noted Abdomen: normal bowel sounds, protuberant abd, soft, +lap marily incisions CDI Musculoskeletal: no cyanosis or clubbing, extremities motor strength 5/5 Skin: no rashes, warm and dry normal turgor Neurologic: PERRL, EOMI, accommodation nl, no face palsy, no dysarthria CN's II-XI intact bilaterally and moves all extremities Psychiatric: A+Ox3, euthymic affect Lymphatic: no cervical or axillary lymphadenopathy : deferred Results & Data ([facility]) Vital Signs (Past 12 Hours) Vital Signs Temp Pulse Pulse Pulse Resp BP BP 06/19/21 13:55 37.9 C H 93 H 22 118/84 06/19/21 13:45 37.9 C H 91 H 22 125/90 06/19/21 13:35 37.9 C H 91 H 29 H 128/82 06/19/21 13:25 88 24 141/76 H 06/19/21 13:15 86 20 153/82 H 06/19/21 13:05 79 20 150/86 H 06/19/21 12:59 36.4 C L 80 20 167/90 H 06/19/21 10:38 36.8 C 88 20 190/114 H 06/19/21 10:17 89 24 149/84 H 06/19/21 10:01 88 25 H 181/100 H 06/19/21 10:00 92 H 17 06/19/21 09:30 93 H 29 H 205/118 H 06/19/21 09:16 101 H 25 H 198/111 H 06/19/21 09:03 06/19/21 07:29 190/127 H 06/19/21 07:27 88 24 06/19/21 07:07 86 22 202/104 H 06/19/21 07:06 91 H 20 202/104 H 06/19/21 06:40 83 22 06/19/21 06:30 84 22 06/19/21 06:20 94 H 12 06/19/21 06:10 81 20 06/19/21 06:00 91 H 20 06/19/21 05:50 75 19 06/19/21 05:40 74 19 06/19/21 05:30 82 17 185/94 H 06/19/21 05:12 83 18 06/19/21 05:10 82 20 06/19/21 05:09 82 19 227/85 H 06/19/21 05:08 85 21 06/19/21 04:12 36.8 C 74 18 107/70 Pulse Ox 06/19/21 13:55 94 06/19/21 13:45 94 06/19/21 13:35 95 06/19/21 13:25 93 06/19/21 13:15 97 06/19/21 13:05 97 06/19/21 12:59 95 06/19/21 10:38 97 06/19/21 10:17 06/19/21 10:01 97 06/19/21 10:00 06/19/21 09:30 97 06/19/21 09:16 96 06/19/21 09:03 92 06/19/21 07:29 06/19/21 07:27 96 06/19/21 07:07 98 06/19/21 07:06 06/19/21 06:40 94 06/19/21 06:30 97 06/19/21 06:20 95 06/19/21 06:10 96 06/19/21 06:00 97 06/19/21 05:50 96 06/19/21 05:40 96 06/19/21 05:30 97 06/19/21 05:12 96 06/19/21 05:10 06/19/21 05:09 95 06/19/21 05:08 06/19/21 04:12 96 Laboratory Results Short CBC 06/19/21 06/19/21 Range/Units 04:50 05:36 WBC Cancelled 17.52 H Hgb Cancelled 15.0 Hct Cancelled 45.4 Plt Count Cancelled BMP 06/19/21 06/19/21 04:50 05:38 Sodium Cancelled 132 L Potassium Cancelled 3.9 Chloride Cancelled 99 Carbon Dioxide Cancelled 27 BUN Cancelled 11 Creatinine Cancelled 0.72 Glucose Cancelled 148 H Calcium Cancelled 8.4 L Liver Function 06/19/21 06/19/21 Range/Units 04:50 05:38 Total Bilirubin Cancelled 0.4 AST Cancelled 17 ALT Cancelled 14 Alkaline Phosphatase Cancelled 75 Albumin Cancelled 4.1 Urine 06/19/21 Range/Units 05:28 Urine Color Yellow Urine Appearance Clear (Clear) Urine pH 8.5 H (4.5-7.5) Ur Specific [place] 1.020 (1.000-1.030) Urine Protein 1+ H (Negative) Urine Glucose (UA) 1+ H (Negative) Diagnostic Findings Abdomen/Pelvis CT 06/19/21 04:27 CT abd pelvis oral and IV con CLINICAL HISTORY: generalized abdominal pain, epigastric pain TECHNIQUE: Helical axial images of the abdomen and pelvis were obtained and displayed. Automated dose lowering techniques and/or adjustment according to patient size were utilized for this exam. This exam was performed with intravenous contrast. CT DOSE: 3891.84 mGy.cm COMPARISON: None available at the time of this dictation. FINDINGS: Lower chest: Prominent pleural fat is noted. Liver: Unremarkable. No focal lesions are seen. Gallbladder and biliary tree: The gallbladder is distended. Is wall appears minimally thickened measuring 3 to 5 mm. A few gallstones are noted in the dependent portion of the gallbladder. No intra- or extrahepatic biliary ductal dilation. Pancreas: Unremarkable, no focal lesions. Spleen: Splenule is incidentally noted. Adrenals: Unremarkable. Kidneys and ureters: Multiple cysts are seen measuring up to 12 mm in diameter on the left. Bladder: Limited evaluation due to underdistention. Reproductive organs: Prostatic calcifications are seen which may represent prior hemorrhage or granulomatous disease. Bowel: Diverticulosis is seen without evidence of diverticulitis. Lymph nodes Retroperitoneal: Unremarkable. Mesenteric: Unremarkable. Pelvic: Unremarkable. Peritoneum: Normal. Vessels: Atherosclerotic calcifications are seen. Abdominal wall: A fat-containing umbilical hernia is seen. Bones: Degenerative changes in the visualized spine. IMPRESSION: Distention and likely wall thickening in the gallbladder concerning for acute cholecystitis. A dependent gallstone is seen. If there is clinical uncertainty, lateral quadrant ultrasound or nuclear medicine HIDA scan can be performed. ACT 112: Negative or not required by law. Electronically signed by: Smith Todd M.D. 06/19/2021 7:34 AM Gallbladder Ultrasound 06/19/21 07:45 US gallbladder CLINICAL HISTORY: EPIGASTRIC PAIN, POSSIBLE MARILY, ABNORMAL CT TECHNIQUE: Multiple real-time sonographic images of the right upper quadrant were obtained. Comparison: Comparison is made to CT abdomen pelvis 06/19/2021 FINDINGS: The liver is diffusely homogenous with normal contour and echogenicity. No focal mass lesions are seen. No intrahepatic ductal dilatation is seen. Low level internal echoes are identified layering dependently within the gallbladder, which is consistent with gallbladder sludge. The gallbladder wall is mildly thickened measuring approximately 3 mm. There is no pericholecystic fluid present. A sonographic Whitlock's sign was elicited by the leasing assistant. The common duct measures 0.5 cm in diameter at the level of the hepatic artery. The visualized portions of the pancreas appear normal. The right kidney shows normal echogenicity, cortical thickness and renal contour. The right kidney shows no evidence of hydronephrosis or mass. No ascites or free fluid is seen in Willingham's pouch. IMPRESSION: Positive Whitlock's sign and gallbladder sludge, stones, and wall thickening compatible with acute cholecystitis. ACT 112: Negative or not required by law. Electronically signed by: Smith Todd M.D. 06/19/2021 8:54 AM Medications Administered Current Inpatient Medications Acetaminophen (Acetaminophen 325 Mg Tab) 650 mg PO Q4H PRN PRN Reason: mild pain Stop: 07/19/21 14:14 Albuterol (Albuterol Hfa 8 Gm Inhaler) 2 puffs INH Q4H PRN; Protocol PRN Reason: Wheezing Stop: 07/19/21 14:14 Aspirin (Aspirin 81 Mg Chew) 162 mg PO DAILY MEREDITH Stop: 07/20/21 08:59 Baclofen (Baclofen 10 Mg Tab) 10 mg PO BID MEREDITH Stop: 07/19/21 20:59 Dextrose (Dextrose 50% 50 Ml Syringe) 25 - 50 ml IV UD PRN; Protocol PRN Reason: Hypoglycemia Protocol Stop: 07/19/21 14:32 Fluticasone Propionate (Fluticasone Propionate Na Spr 16 Gm Btl) 2 sprays AMY QAM MEREDITH Stop: 07/20/21 08:59 Glucagon (Glucagon For Inj 1 Mg Vial) 1 mg SQ UD PRN; Protocol PRN Reason: Hypoglycemia Protocol Stop: 07/19/21 14:32 Glucose (Glucose 10 Tabs/Tube) 4 - 8 tabs PO UD PRN; Protocol PRN Reason: Hypoglycemia Protocol Stop: 07/19/21 14:32 Glucose (Glucose 40% Gel 15 Gm Tube) 15 - 30 gm PO UD PRN; Protocol PRN Reason: Hypoglycemia Protocol Stop: 07/19/21 14:32 Lactated Ringer's (Lr) 1,000 mls @ 80 mls/hr IV .[id number] MEREDITH Stop: 07/19/21 14:44 Insulin Aspart (Insulin Aspart Per Unit) 0 units SC ACHS MEREDITH Stop: 07/19/21 16:29 Metoprolol Succinate (Metoprolol Succ 50mg Ext Rel Tab) 100 mg PO [facility] Stop: 07/20/21 08:59 Metoprolol Succinate (Metoprolol Succ 25mg Ext Rel Tab) 25 mg PO [facility] Stop: 07/20/21 08:59 Miscellaneous (Carbohydrates For Hypoglycemia ) 15 - 30 gm PO UD PRN PRN Reason: Hypoglycemia Protocol Stop: 07/19/21 14:32 Morphine Sulfate (Morphine Sulfate 2 Mg/Ml Carp) 2 mg IV Q2H PRN PRN Reason: Pain (1,2,3,4,5) & Pre PT Stop: 07/03/21 14:14 Morphine Sulfate (Morphine Sulfate 4 Mg/Ml 1 Ml Carp\Vial) 4 mg IV Q2H PRN PRN Reason: Pain (6,7,8,9,10) Stop: 07/03/21 14:14 Nitroglycerin (Nitroglycerin Sl 0.4 Mg/Tab Tab) 0.4 mg SL Q5M PRN PRN Reason: Chest Pain Stop: 07/19/21 14:14 Ondansetron HCl (Ondansetron Inj 2 Mg/Ml 2 Ml Vial) 4 mg IV Q4H PRN PRN Reason: Nausea And Vomiting Stop: 07/19/21 14:14 Oxycodone HCl (Oxycodone Hcl Ir 5 Mg Tab (Immediate Release)) 5 mg PO Q4H PRN PRN Reason: MODERATE Pain (4,5,6) & Pre PT Stop: 07/03/21 14:14 Oxycodone HCl (Oxycodone Hcl Ir 5 Mg Tab (Immediate Release)) 10 mg PO Q4H PRN PRN Reason: SEVERE Pain (7,8,9,10) Stop: 07/03/21 14:14 ECG Rate (beats per minute): 90 Rhythm: normal sinus Findings: + PAC and + prolonged QT (484ms)
[2021-06-19] MEDS ORDERED: DEXTROSE 50% 50 ML SYRINGE IV PRN (14:33)
[2021-06-19] MEDS ORDERED: CARBOHYDRATES FOR HYPOGLYCEMIA PO PRN (14:33)
[2021-06-19] MEDS ORDERED: GLUCOSE 40% GEL 15 GM TUBE PO PRN (14:33)
[2021-06-19] MEDS ORDERED: GLUCAGON FOR INJ 1 MG VIAL SQ PRN (14:33)
[2021-06-19] MEDS ORDERED: GLUCOSE 10 TABS/TUBE PO PRN (14:33)
[2021-06-19] MEDS ORDERED: LACTATED RINGER'S 1,000 ML IV SCH (14:45)
[2021-06-19] MEDS: INSULIN ASPART PER UNIT SC SCH ×2 (17:47→20:39)
[2021-06-19] MEDS ORDERED: COUGH DROP (SUGAR FREE) LOZ 24 LOZ/1 BOX BUCCAL PRN (19:38)
[2021-06-19] MEDS ORDERED: COUGH DROP (SUGAR FREE) LOZ 24 LOZ/1 BOX BUCCAL ONE (19:44)
[2021-06-19] MEDS: oxyCODONE HCL IR 5 MG TAB (IMMEDIATE RELEASE) PO PRN (19:49)
[2021-06-19] MEDS: BACLOFEN 10 MG TAB PO SCH (19:50)
[2021-06-20] MEDS: oxyCODONE HCL IR 5 MG TAB (IMMEDIATE RELEASE) PO PRN (08:02)
[2021-06-20] MEDS: BACLOFEN 10 MG TAB PO SCH (08:03)
[2021-06-20] MEDS: INSULIN ASPART PER UNIT SC SCH ×2 (08:07→12:21)
[2021-06-20 08:32] LABS: Hematocrit (blood only) 43.4 % (42-52); Hemoglobin 14.2 g/dL (14.0-18.0); Mean Corpuscular Hemoglobin 29.2 pg (25-34); Mean Corpuscular Hgb Conc 32.7 g/dL (32-36); Mean Corpuscular Volume 89.1 fL (80-100); Mean Platelet Volume 11.7 fL (7.4-10.4); Platelet Count 126 K/uL (130-400); RDW Coefficient of Variation 14.5 % (11.5-14.5); RDW Standard Deviation 47.6 fL (36.4-46.3); Red Blood Count 4.87 M/uL (4.7-6.1)
[2021-06-20 08:58] LABS: Albumin Level 3.8 gm/dl (3.4-5.0); BUN Creatinine Ratio 20.5 (10-20); Bilirubin Direct 0.2 mg/dl (0-0.2); Bilirubin,Total 0.8 mg/dl (0.2-1.0); Calcium 8.7 mg/dl (8.5-10.1); Creatinine Clr Calc Pharmacy 130.1 ml/min; Est GFR (African American) 111.3 ml/min; Est GFR (Non-African American) 96.1 ml/min; Potassium 4.4 mmol/L (3.5-5.1); Total Protein 7.1 gm/dl (6.0-8.3)
[2021-06-20] MEDS ORDERED: METOPROLOL SUCC 25MG EXT REL TAB PO SCH (09:00)
[2021-06-20] MEDS ORDERED: FLUTICASONE PROPIONATE NA SPR 16 GM BTL NAE SCH (09:00)
[2021-06-20] MEDS ORDERED: METOPROLOL SUCC 50MG EXT REL TAB PO SCH (09:00)
[2021-06-20] MEDS ORDERED: FUROSEMIDE 80 MG TAB PO SCH (09:00)
[2021-06-20] MEDS ORDERED: ASPIRIN 81 MG CHEW PO SCH (09:00)
[2021-06-20] MEDS ORDERED: lisinopril 40 MG TAB PO SCH (09:00)
[2021-06-20] MEDS ORDERED: SPIRONOLACTONE 25 MG TAB PO SCH (09:00)
[2021-06-20 09:11] LABS: Basophils # (auto) 0.01 K/uL (0-0.2); Basophils % (auto) 0.1 %; Eosinophils # (auto) 0.01 K/uL (0-0.5); Eosinophils % (auto) 0.1 %; Immature Granulocytes # (auto) 0.05 K/uL (0.00-0.02); Immature Granulocytes % (auto) 0.3 %; Lymphocytes # (auto) 1.32 K/uL (1.2-3.4); Lymphocytes % (auto) 6.9 %; Monocytes # (auto) 2.52 K/uL (0.11-0.59); Monocytes % (auto) 13.1 %; Neutrophils # (auto) 15.29 K/uL (1.4-6.5); Neutrophils % (auto) 79.5 %
[2021-06-20] MEDS ORDERED: CIPROFLOXACIN / D5W 400 MG/200 ML BAG IV SCH (10:00)
--- NOTE | 2021-06-20 10:24 | Surgery Progress Note ---
Date of Service June 20, 2021 Assessment & Plan (1) Acute cholecystitis: Plan: POD 1 lap jeanna WBC up slightly, Tmax 37.8 last night, will resume abx recheck later today for possible d/c today vs tomorrow Admission and Anticipated Discharge Date Admission Date: June 19, 2021 Supervising Physician Co-Signing Physician Notes I personally saw and evaluated the patient with Mike Villa PA-C and agree with the assessment and plan. 65-year-old male postoperative day 1 laparoscopic cholecystectomy for acute chol ecystitis WBC from 17-, will resume antibiotics Cipro Flagyl p.o. x7 days Otherwise he is feeling well and tolerating a diet and his pain is controlled If he tolerates lunch will send him home later this evening with follow-up with me in 2 weeks Subjective no c/o, tolerating regular diet Physical Exam Gastrointestinal (Abdomen): Inspection/Auscultation: + abdominal surgical incision (dressings intact); abdomen not distended Results & Data ([facility]) Vital Signs (Past 12 Hours) Vital Signs Temp Pulse Resp BP Pulse Ox 06/20/21 08:00 36.8 C 76 18 158/86 H 94 06/20/21 02:20 36.8 C 83 18 145/82 H 95 06/19/21 22:49 36.9 C 91 H 18 114/68 93 PG Care Time/CCT Total # of Minutes Spent Total Time Spent with Patient: Total time spent is greater than 50% in coordination of care (as documented) at patient's floor/unit and/or counseling patient: Coding Level of Care Code None Diagnoses Acute cholecystitis K81.0
--- NOTE | 2021-06-20 12:50 | Hospitalist Progress Note ---
Date of Service June 20, 2021 Assessment & Plan (1) Acute cholecystitis: (2) CAD (coronary artery disease): (3) CHF (congestive heart failure): (4) Atrial fibrillation: (5) T2DM (type 2 diabetes mellitus): Plan: This is a 65-year-old male who has a significant past medical history of CAD status post CABG x3 in 2019, history of PAF status post DC CV as well as pulmonary vein isolation and left atrial appendage clip at time of his CABG, history of SVT, diastolic CHF, HTN, HLD, T2DM, Garcia's esophagus, morbid obesity who presented to ED secondary to abdominal pain, nausea and vomiting x1 day. Acute cholecystitis Leukocytosis s/p Lap Jeanna, Dr. Rene POD #1 low Tolerated procedure well EBL 25 mL Pain/wound/ATB management per surgery CAD hx of CABG 2019 PAF s/p PVI and Left atrial appendage clip Chronic HFpEF HTN HLD euvolemic, no CP or SOB daily weights, strict intake and output lasix, aldactone, lisinopril currently on hold - eval volume status, renal fxn and bp in a.m. and resume if able continue ASA, metoprolol crestor can be resumed, he is also on Repatha inj as OP monthly T2DM well controlled a1c 5.9 06/04/21 hold metformin, novolog per protocol Glucometer provided, lancents and test strips sent. Rash pt complains of rash to abd, extensor surf of UE and face no new meds, detergents, soaps tried OP steroid cream, no improvement not itchy, occassionally painful recommend OP derm eval and eval with PCP DVT ppx: SCD/TEDS per primary Dispo: d/c home when cleared by surg PCP: Fernanda Huang FULL CODE Thank you for this consultation. We will follow the patient with you during their hospital stay. You can reach a member of the [facility] Hospitalist Team 23/09 via hospitalist role on tiger text. Admission and Anticipated Discharge Date Admission Date: June 19, 2021 Subjective Patient seen and examined at bedside as a follow-up of status post a lap jeanna for acute cholecystitis. Patient was lying in bed, on room air, NAD, no new acute events overnight. Patient reports eating okay and moving gas okay, has not moved bowel after surgery. Patient denies any pain. Patient denies any headache/dizziness/nausea/vomiting/feeling of fever/other review of symptoms. Physical Exam Physical Exam: GENERAL: Alert and oriented x3. NAD, on RA. Morbidly obese HEENT: No pallor, no icterus. Pupils equal, round and reactive to light. Oral mucosa moist. NECK: No JVD, no neck masses. HEART: S1 and S2 heard. Regular rate and rhythm. No murmur, no gallop. RESPIRATORY SYSTEM: Normal AP diameter. No accessory muscle use. No wheezing, no crackles. ABDOMEN: Soft, bowel sounds present, nontender, no distention. Clean dressing over lap jeanna ports of entry. CENTRAL NERVOUS SYSTEM: No facial droop. Speech is clear. Obeys simple commands. Moves extremities. EXTREMITIES: No edema, no erythema seen. Results & Data Results & Data ([facility]) Vital Signs (Past 12 Hours) Vital Signs Temp Pulse Pulse Resp BP Pulse Ox 06/20/21 11:00 36.3 C L 72 18 100/59 L 95 06/20/21 08:00 36.8 C 76 18 158/86 H 94 06/20/21 02:20 36.8 C 83 18 145/82 H 95
--- NOTE | 2021-06-21 14:10 | Discharge Summary ---
Date of Service June 21, 2021 Admission HPI Per Admitting Provider This is a 65y M with a PMH of afib, HTN, heart failure and history of coronary bypass who presents to the [facility] ED on 06/19/21 with complaints of abdominal pain. Patient reports the pain started yesterday after he was sitting in his recliner. He subsequently developed nausea/vomiting and pain progressed to the point he was doubled over in severe pain. He could not sleep or get comfortable. He presented to the ER today due to ongoing symptoms. In the ER a CT a/p was performed that revealed distention and likely wall thickening in the gallbladder concerning for acute cholecystitis. A dependent gallstone is seen. Follow up with a RUQ US showed positive Whitlock's sign and gallbladder sludge, stones, and wall thickening compatible with acute cholecystitis. Patient denies any prior abdominal surgical history. This is the first time he has had pain like this before. NPO since yesterday. Principal Diagnosis Acute cholecystitis Discharge Exam Constitutional WD/WN, vitals as above Gastrointestinal (Abdomen) Inspection/Auscultation: + abdominal surgical incision (dressings dry); abdomen not distended Percussion/Palpation: abdomen soft Discharge Data Allergies Allergy/AdvReac Type Severity Reaction Status Date / Time Penicillins Allergy RASH Unverified 06/19/21 08:19 Consultations 06/19/21 09:54 ED Decision to Admit Stat 06/19/21 14:15 Consult Hospitalist Routine Procedures Performed Operation Date: 06/19/21 13:10 Actual Procedures p Laparoscopic Cholecystectomy (Not Applicable) - Cristopher Rene, Ordered Studies 06/19/21 04:27 CT abd pelvis oral and IV con Stat 06/19/21 07:45 US gallbladder Stat Hospital Course (1) Acute cholecystitis: 65 y/o male presented to the ER with abdominal pain, nausea and vomiting. White count was 17,[address] and U/S were consistent with acute cholecystitis. He was taken to the operating room for laparoscopic cholecystectomy and transferred to the surgical floor for overnight observation. Hospitalist service was consulted routinely given his history of CHF, CAD, A-fib and DM II. In the morning he was able to advance diet and tolerate oral analgesics. He did not have any cardiac complications. He was stable for discharge home on oral antibiotics. Total Time Total Time Spent Total Time Spent (In Minutes): 15 Discharge Plan Discharge Items Patient Disposition: Home - Self-Care Reason For Visit: CHOLECYSTITIS Discharge Diagnosis: laparoscopic cholecystectomy Activity: Per Instructions section Lifting: No more than 10 pounds Bathing Comment: may shower; no soaking in tubs/pools Exercise/Sports: Wait until after follow-up appointment Driving/Machine Use: no driving while taking narcotics for pain Non-emergency contact: Surgeon Call non-emergency contact if: you have any medication questions, your symptoms worsen, your pain is worsening, your pain is concerning for you, you have a fever, your temperature is above 101.5, your wound has increased redness, your wound has increased drainage and your wound pain has increased Follow-up/Referrals: Cristopher Rene DO [Physician] - 07/05/21 10:15 am (Please call to schedule follow up in clinic within 2 weeks) Shahzad Huang DO [Primary Care Provider] - Diet: Carb Consistent or DM2 Addtl Attending Provider Instructions: You may remove your outer surgical dressings on 06/21/21. You will have small white bandages on underneath called steri- strips./ You may shower with these on. They will tend to fall off on their own within 7-10 days. You may purchase Tylenol and/or Ibuprofen over the counter if needed for pain control. Pending Studies at Discharge: Yes Studies:: surgical pathology Stand-Alone Forms: [facility] Medications and DC Order Prescriptions: New oxycodone 5 mg tablet 5 - 10 mg PO .[id number] PRN (Reason: pain, for initial therapy, max 6 tabs per day) Qty: 15 RF: 0 ciprofloxacin HCl [Cipro] 500 mg tablet 500 mg PO BID Qty: 20 RF: 0 metronidazole 500 mg tablet 500 mg PO Q8H 10 Days Qty: 30 RF: 0 (DME) OneTouch Verio test strips Strip See Rx Instructions .Route Qty: 50 RF: 0 (DME) lancets [OneTouch Delica Lancets] 33 gauge misc See Rx Instructions .Route Qty: 50 RF: 0 Continued metoprolol succinate 100 mg Tablet Extended Release 24 Hr 100 mg PO QAM RF: 0 cholecalciferol (vitamin D3) [Vitamin D3] 1,000 unit Capsule 1,000 unit PO HS RF: 0 baclofen 10 mg tablet 10 mg PO BID RF: 0 furosemide 40 mg tablet 80 mg PO BID RF: 0 ondansetron HCl 4 mg tablet 4 mg PO Q6H PRN (Reason: Nausea) RF: 0 omeprazole 40 mg capsule,delayed release(DR/EC) 40 mg PO DAILY RF: 0 spironolactone 25 mg tablet 25 mg PO QAM RF: 0 nitroglycerin [Nitrostat] 0.4 mg Tablet, Sublingual 0.4 mg sublingual UD RF: 0 aspirin [Aspirin Childrens] 81 mg Tablet,Chewable 162 mg PO DAILY RF: 0 metoprolol succinate 25 mg tablet extended release 24 hr 25 mg PO QAM RF: 0 albuterol sulfate 90 mcg/actuation HFA aerosol inhaler 2 puff INHALATION Q4H PRN (Reason: Wheezing) RF: 0 lisinopril 40 mg tablet 40 mg PO QAM RF: 0 fluticasone propionate 50 mcg/actuation Violet,Suspension 2 spray INTRANASAL QAM RF: 0 metformin 500 mg tablet extended release 24 hr 1,500 mg PO QAM RF: 0 ezetimibe 10 mg tablet 10 mg PO QAM RF: 0 omega 4-aij-usf-fish oil [Fish Oil] 1,000 mg (120 mg-180 mg) Capsule 1 cap PO DAILY RF: 0 Repatha Pushtronex 420 mg/3.5 mL wearable injector 420 mg SUBCUT MONTHLY RF: 0 rosuvastatin [Crestor] 20 mg tablet 40 mg PO DAILY RF: 0 Discharge Orders: Discharge Order (Routine); Ordered 06/20/21 Ordered By: Dinah Hutton/Other Patient Handouts: Using a Blood Sugar Log, Managing Type 2 Diabetes, Diabetes Blood Glucose Check Ch, Diabetes: Living Your Life Admission Data Admit Date/Time: 06/19/21 12:56 Attending Provider: Cristopher Rene Admit Provider: Cristopher Rene Primary Care Provider: Shahzad Huang Other Providers: Cristopher Rene ; Alyssa Peng ; Amberly Laird ; Ara Sebastian ; Roseann Messer ; Janice Yu ; Ayah Bob ; Tamir Choi ; Víctor Saunders ; Johnson Moffett ; Cindy Morrow ; Rosana Stewart ; Mega Maciel ; Jeannette Saleh ; Rupal Pereira ; Bj Urbina ; Sera Asif ; Shahnaz Vasquez ; Leonor Nichols ; Emily Stroud I. ; Efrain Barrow Other Interventions: Discharge Summary Assessment (RN) Last Done: 06/20/21 14:28 Coding Level of Care Code D/C DAY MANAGEMENT <30 MINS Diagnoses Acute cholecystitis K81.0
== END 2021-06-20 15:23 | disposition home or self-care (01) ==
LOC: ED 04:10 → 3N 10:25 → ASU 10:25 → 3N 10:28